=== PATIENT | female | born 1985 | race Caucasian/White ===

== ENCOUNTER → 2018-02-10 | Outpatient (CLI) | payer OTHER | LOC: FIMAGING 07:24 | PROVIDERS: ATTEND Obstetrics & Gynecology | DX: O09.812 Supervision of pregnancy resulting from assisted reproductive technology, second trimester (principal); E03.9 Hypothyroidism, unspecified; Z3A.20 20 weeks gestation of pregnancy ==

== ENCOUNTER 2018-10-23 02:11 | Observation (INO) | payer OTHER ==
[2018-10-23] MEDS ORDERED: NS 1,000 ML IV ONE ×2 (02:49→04:22)
--- NOTE | 2018-10-23 02:49 | EDPHY ---
H & P Stated Complaint: RUQ abd pain, nausea, dry heaving. Saw PCP yesterday awaiting results Time Seen by Provider: 10/23/18 02:49 HPI/ROS: HPI CHIEF COMPLAINT: Abdominal pain, nausea, vomiting. HISTORY OF PRESENT ILLNESS: 33-year-old female presents to the emergency room with abdominal pain. Patient states she has had some abdominal discomfort rather generalized since Saturday. It is now . She presents to the emergency room with worsening abdominal pain is now located in the right lower quadrant. She has associated nausea with 2 episodes of vomiting. Patient denies any chest pain or shortness of breath. Main complaint lower right abdominal pain. Right lower quadrant. 05/02. Associated nausea. Denies urinary symptoms, denies being , denies back pain. Past Medical History: Denies significant medical history except for gestational diabetes Past Surgical History: No recent surgery Social History: Denies drugs alcohol tobacco. Family History: Noncontributory ROS REVIEW OF SYSTEMS: 10 Systems were reviewed and negative with the exception of the elements mentioned in the history of present illness. Exam Constitutional triage nursing summary reviewed, vital signs reviewed, awake/ alert. Eyes normal conjunctivae and sclera, EOMI, PERRLA. HENT normal inspection, atraumatic, moist mucus membranes, no epistaxis, neck supple/ no meningismus, no raccoon eyes. Respiratory clear to auscultation bilaterally, normal breath sounds, no respiratory distress, no wheezing. Cardiovascular rate normal, regular rhythm, no murmur, no edema, distal pulses normal. Gastrointestinal tender palpation right lower quadrant, no peritoneal signs no rebound, no guarding, normal bowel sounds, no distension, no pulsatile mass. Genitourinary no CVA tenderness. Musculoskeletal no midline vertebral tenderness, full range of motion, no calf swelling, no tenderness of extremities, no meningismus, good pulses, neurovascularly intact. Skin pink, warm, & dry, no rash, skin atraumatic. Neurologic awake, alert and oriented x 3, AAOx3, moves all 4 extremities equally, motor intact, sensory intact, CN II-XII intact, normal cerebellar, normal vision, normal speech. Psychiatric normal mood/affect. Heme/Lymph/Immune no lymphadenopathy. Differential Diagnosis: Differential diagnosis includes but is not limited to and in no particular order: Bowel obstruction, appendicitis, gallbladder disease, diverticulitis, colitis, enteritis, perforated viscus, gastritis, GERD , esophagitis, urinary tract infection, pyelonephritis, kidney stones Medical Decision Making: Plan for this patient IV establishment IV fluid bolus , IV Dilaudid 0.5 mg for pain control IV Zofran 4 mg for nausea, CT scan abdomen pelvis with IV contrast rule out acute appendicitis given her pain is right lower quadrant. Re-evaluation: CT scan abdomen pelvis with IV contrast faxed me by direct Radiology at 4:09 a.m.: This shows significant wall thickening of the cecum and proximal ascending colon consistent with colitis there is associated mural base gas density suspected tumor represent gastric between the hostile folds although pneumatosis intestinalis is possible recommend correlation lactic acid. Additionally there is mild dilated loops of ileum with desiccated enteric contents fever to be flexed ileus or obstruction at the level to IC valve due to the colitis 0418: Updated patient about CT scan results. Addition will add a lactic acid. Given the colitis on her CT scan patient need to be admitted. I have ordered her IV Flagyl and IV Cipro. Patient has not had any diarrhea. I will consult General surgery due to the medial base gas. Patient need to be admitted to the hospital for abdominal pain and infection. I have consult Dr. Disla who agrees to admit the patient for colitis. We discussed the CT scan findings. He would like her admitted, IV Cipro IV Flagyl. At this time the patient's lactic acid is pending Patient updated agrees for admission. Source: Patient - Personal History LMP (Females 10-55): Unknown Current Tetanus/Diphtheria Vaccine: Yes Current Tetanus Diphtheria and Acellular Pertussis (TDAP): Yes - Medical/Surgical History Hx Asthma: No Hx Chronic Respiratory Disease: No Hx Diabetes: No Hx Cardiac Disease: No Hx Renal Disease: No Hx Cirrhosis: No Hx Alcoholism: No Hx HIV/AIDS: No Hx Splenectomy or Spleen Trauma: No Other PMH: PVC's, thyroid, gestational diabeties, retained placenta sx - Social History Smoking Status: Never smoked Constitutional: Initial Vital Signs Temperature (C) 36.4 C 10/23/18 02:13 Heart Rate 88 10/23/18 02:13 Respiratory Rate 20 10/23/18 02:13 Blood Pressure 120/99 H 10/23/18 02:13 O2 Sat (%) 96 10/23/18 02:13 O2 Delivery Mode Room Air Allergies/Adverse Reactions: No Known Allergies Allergy (Verified 10/23/18 09:03) Home Medications: Medication Instructions Recorded Ascorbic Acid [Vitamin C 500 mg 500 mg PO DAILY 10/23/18 (*)] Bismuth Subsalicylate 15 ml PO Q3 PRN 10/23/18 [Pepto-Bismol oral liquid (*)] Calcium Carbonate [Tums 500MG (*)] 500 mg PO DAILY PRN 10/23/18 Cetirizine [ZyrTEC 10 mg (*)] 10 mg PO HS 10/23/18 Ferrous Sulfate [Ferrous Sulf 325 325 mg PO DAILY 10/23/18 MG (*)] Fluconazole [Diflucan] 200 mg PO DAILY 10/23/18 Herbals/Supplements -Info Only 1 ea PO DAILY 10/23/18 Levothyroxine [Synthroid 25 mcg 25 mcg PO DAILY06 10/23/18 (*)] [place]-3 Fatty Acids [Fish Oil 1000 1,000 mg PO DAILY 10/23/18 mg (*)] Medical Decision Making - Data Points Laboratory Results: Laboratory Results 10/23/18 02:50 10/23/18 02:50 Medications Given: Discontinued Medications Bismuth Subsalicylate (Pepto-Bismol) 262 mg PO Q3 PRN PRN Reason: Indigestion Stop: 04/21/19 12:12 Last Admin: 10/23/18 15:15 Dose: 262 mg Hydromorphone HCl (Dilaudid) 0.5 mg IVP EDNOW ONE Stop: 10/23/18 02:58 Last Admin: 10/23/18 03:12 Dose: 0.5 mg Hydromorphone HCl (Dilaudid) 0.5 mg IVP EDNOW ONE Stop: 10/23/18 05:28 Last Admin: 10/23/18 06:07 Dose: 0.5 mg Sodium Chloride (Ns) 1,000 mls @ 0 mls/hr IV EDNOW ONE; Wide Open PRN Reason: Protocol Stop: 10/23/18 02:50 Last Admin: 10/23/18 02:51 Dose: 1,000 mls Ciprofloxacin/Dextrose (Cipro 200 Mg (Premix)) 100 mls @ 100 mls/hr IV EDNOW ONE PRN Reason: Protocol Stop: 10/23/18 05:17 Last Admin: 10/23/18 06:06 Dose: 100 mls Metronidazole/Sodium Chloride (Flagyl 500 Mg (Premix)) 100 mls @ 100 mls/hr IV EDNOW ONE PRN Reason: Protocol Stop: 10/23/18 05:17 Last Admin: 10/23/18 04:39 Dose: 100 mls Sodium Chloride (Ns) 1,000 mls @ 0 mls/hr IV ONCE ONE PRN Reason: Wide Open Stop: 10/23/18 04:23 Last Admin: 10/23/18 04:39 Dose: 1,000 mls Potassium Chloride/Dextrose/Sod Cl (D5w 1/2 Ns W/ 20 Kcl/L) 1,000 mls @ 125 mls /hr IV CONT ALICIA Stop: 04/21/19 12:14 Last Admin: 10/23/18 13:49 Dose: 1,000 mls Ondansetron HCl (Zofran) 4 mg IVP EDNOW ONE Stop: 10/23/18 02:58 Last Admin: 10/23/18 03:12 Dose: 4 mg Polyethylene Glycol (Miralax) 17 gm PO ONCE ONE Stop: 10/23/18 18:31 Last Admin: 10/23/18 18:49 Dose: 17 gm Departure - Departure Disposition: [facility] Inpatient Acute Clinical Impression: Colitis Abdominal pain Qualifiers: Abdominal location: unspecified location Qualified Code(s): R10.9 - Unspecified abdominal pain Condition: Good
[2018-10-23] MEDS ORDERED: HYDROmorphONE/DILAUDID 2 MG/ML INJ IVP ONE ×2 (02:57→05:27)
[2018-10-23] MEDS ORDERED: ONDANSETRON 4 MG/2 ML VIAL IVP ONE (02:57)
[2018-10-23 02:59] LABS: PLATELET COUNT 233 10^3/uL (150-400)
[2018-10-23] MEDS ORDERED: IOHEXOL 300 mgI/ML (OMNIPAQUE) 150 ML BTL IV ONE (03:24)
[2018-10-23] MEDS ORDERED: CIPROFLOXACIN 200 MG/DEXTROSE 100 ML IV ONE (04:18)
[2018-10-23] MEDS ORDERED: HYDROmorphONE/DILAUDID 1 MG/ML INJ IVP PRN (12:11)
[2018-10-23] MEDS ORDERED: ONDANSETRON 4 MG/2 ML VIAL IVP PRN (12:11)
[2018-10-23] MEDS ORDERED: BISMUTH SUBSALICYLATE 524 MG/30 ML UDL PO PRN (12:13)
[2018-10-23] MEDS ORDERED: D5W 1/2 NS W/ 20 KCl/L 1,000 ML IV SCH (12:15)
--- NOTE | 2018-10-23 12:21 | SOAPPROG ---
SOAP Progress Note Assessment/Plan: Assessment: 33 FEMALE, NURSING RECENT NEW MOM WITH RLQ PAIN FOR 2 DAYS WITH FEVER/ LARGE BM YESTERDAY CT SHOWS CONSTIPATION WITH ? OF COLITIS OR ENTERITIS, NORMAL APPENDIX NKA NO MAJOR MEDS NO TOB ROS - 10 PT REVIEW HEENT NONICTERIC CHEST CLEAR COR RR ABD SLIGHTLY TENDER RLQ, MILD DISTENTION, + BS, NO HERNIAS OR MASSES IMP: RLQ UNCLEAR ETIOLOGY Plan:ADMIT FOR IV ABX, OBS, IVS 10/23/18 12:15 Objective: Vital Signs Temp Pulse Resp BP Pulse Ox 36.9 C 59 L 16 119/78 97 10/23/18 07:55 10/23/18 10:33 10/23/18 10:33 10/23/18 10:33 10/23/18 10:33 ICD10 Worksheet Patient Problems: Problems Problem Status Onset Abdominal pain Acute Colitis Acute
[2018-10-23 15:58] VITALS: BP 92/56
[2018-10-23] MEDS ORDERED: POLYETHYLENE GLYCOL 3350 17 GM PKT PO ONE (18:30)
[2018-10-23] MEDS ORDERED: BISACODYL 10 MG SUPP PR ONE (18:48)
[2018-10-23] MEDS ORDERED: CETIRIZINE 10 MG TAB PO SCH (21:00)
[2018-10-24] MEDS ORDERED: LEVOTHYROXINE 25 MCG TAB PO SCH (06:00)
[2018-10-24] MEDS ORDERED: FLUCONAZOLE 100 MG TAB PO SCH (09:00)
[2018-10-24] MEDS ORDERED: ASCORBIC ACID 500 MG TAB PO SCH (09:00)
== END 2018-10-23 20:00 | disposition home or self-care (01) ==
LOC: F3N 13:07
PROVIDERS: ADMIT Surgery; ATTEND Surgery
DX: K52.9 Noninfective gastroenteritis and colitis, unspecified (principal)
CPT/HCPCS: 74177; 96361; 96365; 96367; 96375; 96376; 99285; G0378; J1170; J2405; Q9967

== ENCOUNTER 2018-10-24 22:46 | Inpatient (IN) | payer OTHER ==
[2018-10-24] MEDS ORDERED: ONDANSETRON 4 MG/2 ML VIAL IVP ONE (23:07)
[2018-10-24] MEDS ORDERED: HYDROmorphONE/DILAUDID 2 MG/ML INJ IVP ONE ×2 (23:07→23:21)
[2018-10-24] MEDS ORDERED: NS 1,000 ML IV ONE (23:07)
[2018-10-24] MEDS ORDERED: HYDROmorphONE/DILAUDID 2 MG/ML INJ ONE (23:10)
--- NOTE | 2018-10-24 23:19 | EDPHY ---
General Time Seen by Provider: 10/24/18 22:52 Narrative: CLINICAL IMPRESSION: Colitis ASSESSMENT/PLAN: 33-year-old female, recently discharged from this hospital this morning after admission for colitis and presumed constipation, returns to the ED tonight with increased abdominal pain, vomiting, and inability to have bowel movement despite [id number] laxatives. Patient appears uncomfortable and has diffuse tenderness on exam with guarding. No reported fevers or chills at home. Repeat lab evaluation shows development of leukocytosis. No renal insufficiency, electrolyte imbalance, metabolic disturbance, normal lactate. Repeat CT scan read by Radiology with increased wall thickening in the cecum, proximal ascending colon and terminal ileum with interval development of a small volume of right abdominal and pelvic ascites. These results were discussed with Dr. West who came to the ED to evaluate the patient. She will be admitted, IV Rocephin and metronidazole started in the ED. Patient kept NPO at this time. Case discussed with Dr. Bear who also saw and examined the patient. Stable for admission. DIFFERENTIAL DX: Abdominal pain includes but not limited to urinary tract infection, pyelonephritis, infection, ectopic , salpingitis, TOA, ovarian torsion, ovarian cyst, endometriosis, uterine fibroids, acute appendicitis, acute diverticulitis, small-bowel obstruction, constipation ED PROCEDURES: See lab and/or imaging results below ED COURSE: Eleven 15:. Case discussed with Dr. Bear who also saw this patient yesterday. He examined the patient as well. Plan for IV, labs, analgesics and repeat CT scan 12:55 a.m.. Results from direct radiology interpretation of CT received. This was read by Dr. Lockwood. Final impression: Increased wall thickening in the cecum, proximal ascending colon, and terminal ileum. Interval development of a small volume of right abdominal and pelvic ascites. In crease small-bowel obstruction at the level of the terminal ileum. Consider infectious, inflammatory and ischemic colitis. Discussed with Dr. Deshawn West who will come to the ED to evaluate the patient. Recommend readmission. Start ceftriaxone and Flagyl. Plan discussed with the patient who is in agreement. She is comfortable at this time and declining further IV analgesics. Will keep NPO per surgeon recommendation. CHIEF COMPLAINT: Worsening abdominal pain HPI: 33-year-old otherwise healthy female presents to the emergency department after she was discharged from the hospital this morning following admission for colitis and constipation. Patient was admitted by Dr. Disla. She received a single dose of IV antibiotics in the hospital, was instructed to try magnesium citrate and enemas at home. She tried taking a full dose of Mag citrate this evening around 5:00 p.m. And shortly thereafter began vomiting. She has vomited 5 times since then. She tried 2 separate fleets enemas at home, had some luck with the 1st 1 but only "watery brown mucus with the 2nd enema". No reports of fever or chills. No abnormal complaints. She reportedly saw Dr. Disla in office today and was told she was constipated. She was also seen by a PA at a GI office and "got an xray". They called Dr. Mccabe's office tonight before coming to the ER and were advised by Dr. West to come to ED. 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 She is currently breast feeding, brought her pump with her but admits her milk supply is dwindling. She reports no other significant abdominal surgery, UTI complaints. PAST MEDICAL HISTORY: No significant past medical history See nurse/triage notes for additional history if applicable Pertinent Past Surgical History: Uterine embolization July 2018 Family History: Noncontributory Social History: , here with her , otherwise healthy REVIEW OF SYSTEMS: All other systems negative Constitutional: No fever, no chills, positive for appetite change. Cardiovascular: No chest pain, no palpitations. Respiratory: No cough, no shortness of breath. Gastrointestinal: Positive for generalized abdominal pain, positive for vomiting , diarrhea. Genitourinary: No hematuria, dysuria, flank pain, pelvic pain Musculoskeletal: No back pain, joint swelling, joint pain, myalgias. PHYSICAL EXAM: General Appearance: Alert, oriented, appears uncomfortable, well hydrated, non- toxic appearing, VSS, no hypoxia. Respiratory: There are no retractions, lungs are clear to auscultation. Cardiac: Regular rate and rhythm, no murmurs or gallops. Gastrointestinal: Abdomen is soft, generally significantly tender throughout, bowel sounds normal, no masses/hernia, no rigidity, mild guarding but no focal peritoneal findings. Neurological: [ Alert and oriented x 3 Skin: Warm, dry, no rashes, no nodules on palpation. MEDICAL DECISION MAKING: Secondary supervising physician at time of evaluation was Dr. Bear. Diagnosis: Worsening colitis, differential includes infectious, inflammatory or ischemic. New, requires workup Summary: See Assessment and Plan for summary of ED visit Clinical lab tests: ordered / reviewed. Independent visualization of images, tracing, or specimens: Yes. Decision to obtain medical records or history from someone other than the patient: No Review / Summarize previous medical records: Reviewed recent ED notes, admission records and imaging studies Discussed patient with another provider: Dr. Bear Patient Progress: Stable . - History Smoking Status: Never smoked - Objective Vital Signs: Initial Vital Signs Temperature (C) 36.8 C 10/24/18 22:48 Heart Rate 68 10/24/18 22:48 Respiratory Rate 17 10/24/18 22:48 Blood Pressure 117/66 10/24/18 22:48 O2 Sat (%) 96 10/24/18 22:48 O2 Delivery Mode Nasal Cannula O2 (L/minute) 2 Allergies/Adverse Reactions: No Known Allergies Allergy (Verified 10/24/18 22:47) Home Medications: Medication Instructions Recorded Ascorbic Acid [Vitamin C 500 mg 500 mg PO DAILY 10/23/18 (*)] Bismuth Subsalicylate 15 ml PO Q3 PRN 10/23/18 [Pepto-Bismol oral liquid (*)] Calcium Carbonate [Tums 500MG (*)] 500 mg PO DAILY PRN 10/23/18 Cetirizine [ZyrTEC 10 mg (*)] 10 mg PO HS 10/23/18 Ferrous Sulfate [Ferrous Sulf 325 325 mg PO DAILY 10/23/18 MG (*)] Fluconazole [Diflucan] 200 mg PO DAILY 10/23/18 Herbals/Supplements -Info Only 1 ea PO DAILY 10/23/18 Levothyroxine [Synthroid 25 mcg 25 mcg PO DAILY06 10/23/18 (*)] [place]-3 Fatty Acids [Fish Oil 1000 1,000 mg PO DAILY 10/23/18 mg (*)] Laboratory Results: Laboratory Results 10/24/18 23:15 10/24/18 23:15 10/24/18 10/24/18 10/24/18 23:15 23:15 23:15 WBC 13.02 10^3/uL H 10^3/uL (3.80-9.50) RBC 4.72 10^6/uL 10^6/uL (4.18-5.33) Hgb 15.3 g/dL g/dL (12.6-16.3) Hct 45.0 % % (38.0-47.0) MCV 95.3 fL fL (81.5-99.8) MCH 32.4 pg pg (27.9-34.1) MCHC 34.0 g/dL g/dL (32.4-36.7) RDW 12.2 % % (11.5-15.2) Plt Count 248 10^3/uL 10^3/uL (150-400) MPV 10.4 fL fL (8.7-11.7) Neut % (Auto) 86.7 % H % (39.3-74.2) Lymph % (Auto) 6.0 % L % (15.0-45.0) [place] % (Auto) 6.1 % % (4.5-13.0) Eos % (Auto) 0.1 % L % (0.6-7.6) Baso % (Auto) 0.6 % % (0.3-1.7) Nucleat RBC Rel Count 0.0 % % (0.0-0.2) Absolute Neuts (auto) 11.28 10^3/uL H 10^3/uL (1.70-6.50) Absolute Lymphs (auto) 0.78 10^3/uL L 10^3/uL (1.00-3.00) Absolute Monos (auto) 0.80 10^3/uL 10^3/uL (0.30-0.80) Absolute Eos (auto) 0.01 10^3/uL L 10^3/uL (0.03-0.40) Absolute Basos (auto) 0.08 10^3/uL 10^3/uL (0.02-0.10) Absolute Nucleated RBC 0.00 10^3/uL 10^3/uL (0-0.01) Immature Gran % 0.5 % % (0.0-1.1) Immature Gran # 0.07 10^3/uL 10^3/uL (0.00-0.10) VBG Lactic Acid 1.1 mmol/L mmol/L (0.7-2.1) Sodium 134 mEq/L L mEq/L (135-145) Potassium 4.1 mEq/L mEq/L (3.5-5.2) Chloride 97 mEq/L mEq/L (97-110) Carbon Dioxide 25 mEq/l mEq/l (22-31) Anion Gap 12 mEq/L mEq/L (6-14) BUN 10 mg/dL mg/dL (7-23) Creatinine 0.7 mg/dL mg/dL (0.6-1.0) Estimated GFR > 60 Glucose 87 mg/dL mg/dL (70-100) Calcium 9.6 mg/dL mg/dL (8.5-10.4) Medications Given: Discontinued Medications Hydromorphone HCl (Dilaudid) 0.5 mg IVP EDNOW ONE Stop: 10/24/18 23:08 Last Admin: 10/24/18 23:22 Dose: Not Given Hydromorphone HCl (Dilaudid) 1 mg IVP EDNOW ONE Stop: 10/24/18 23:22 Last Admin: 10/24/18 23:22 Dose: 1 mg Sodium Chloride (Ns) 1,000 mls @ 0 mls/hr IV EDNOW ONE; Wide Open PRN Reason: Protocol Stop: 10/24/18 23:08 Last Admin: 10/24/18 23:23 Dose: 1,000 mls Ondansetron HCl (Zofran) 4 mg IVP EDNOW ONE Stop: 10/24/18 23:08 Last Admin: 10/24/18 23:23 Dose: 4 mg Departure - Departure Disposition: [facility] Inpatient Acute Clinical Impression: Colitis Condition: Fair
[2018-10-24 23:29] LABS: PLATELET COUNT 248 10^3/uL (150-400)
[2018-10-24] MEDS ORDERED: IOHEXOL 300 mgI/ML (OMNIPAQUE) 150 ML BTL IV ONE (23:45)
[2018-10-25] MEDS ORDERED: HYDROmorphONE/DILAUDID 2 MG/ML INJ IVP ONE (01:24)
[2018-10-25] MEDS ORDERED: PROMETHAZINE HCL 25 MG/ML INJ IVP PRN (01:26)
[2018-10-25] MEDS ORDERED: ONDANSETRON DISINTEGRATING 4 MG TAB PO PRN (01:26)
[2018-10-25] MEDS ORDERED: ONDANSETRON 4 MG/2 ML VIAL IVP PRN (01:26)
[2018-10-25] MEDS ORDERED: ACETAMINOPHEN 325 MG TAB PO PRN (01:26)
[2018-10-25] MEDS ORDERED: ONDANSETRON 4 MG/2 ML VIAL IVP ONE (01:29)
[2018-10-25] MEDS ORDERED: ONDANSETRON 4 MG/2 ML VIAL ONE (01:29)
[2018-10-25] MEDS: HYDROmorphONE/DILAUDID 1 MG/ML INJ IVP PRN ×2 (03:47→06:10)
[2018-10-25] MEDS: D5W 1/2 NS W/ 20 KCl/L 1,000 ML IV SCH ×2 (03:57→19:15)
[2018-10-25 05:58] LABS: PLATELET COUNT 242 10^3/uL (150-400)
--- NOTE | 2018-10-25 06:51 | PDGENHP ---
History and Physical - Chief Complaint abdominal pain with nausea and vomiting - History of Present Illness Otherwise healthy 33yo female who presents back to the ED with abdominal pain. Briefly, was admitted night with acute abdominal pain and a CT scan which showed colitis. She received one dose of antibiotics and was subsequently monitored on the floor and discharged home . Since Dc, she has been seen in both our clinic and GI clinic. Throughout the day today, she has had progressive, colicky abdominal pain which has worsened. Her called earlier to report that she was in excruciating pain and that they were coming back in. In the ED, she has been medicated but is still nauseated she complains of colicky abdominal pain which comes in waves and at its worse is 8/10 in intensity. History Information - Allergies/Home Medication List Allergies/Adverse Reactions: No Known Allergies Allergy (Verified 10/24/18 22:47) Home Medications: Ascorbic Acid [Vitamin C 500 mg (*)] 500 mg PO DAILY 10/23/18 [Last Taken Unknown] Bismuth Subsalicylate [Pepto-Bismol oral liquid (*)] 15 ml PO Q3 PRN 10/23/18 [ Last Taken Unknown] Calcium Carbonate [Tums 500MG (*)] 500 mg PO DAILY PRN 10/23/18 [Last Taken Unknown] Cetirizine [ZyrTEC 10 mg (*)] 10 mg PO HS 10/23/18 [Last Taken 10/22/18] Ferrous Sulfate [Ferrous Sulf 325 MG (*)] 325 mg PO DAILY 10/23/18 [Last Taken Unknown] Fluconazole [Diflucan] 200 mg PO DAILY 10/23/18 [Last Taken Unknown] Herbals/Supplements -Info Only 1 ea PO DAILY 10/23/18 [Last Taken Unknown] Levothyroxine [Synthroid 25 mcg (*)] 25 mcg PO DAILY06 10/23/18 [Last Taken ] [place]-3 Fatty Acids [Fish Oil 1000 mg (*)] 1,000 mg PO DAILY 10/23/18 [Last Taken Unknown] I have personally reviewed and updated: family history, medical history, social history, surgical history Past Medical History: hypothyroid, gestational DM - Surgical History Reports: no pertinent surgical hx Additional surgical history: chemo embo of uterine bleeder post-partu,m - Family History Additional family history: no Crohns or UC - Social History Smoking Status: Never smoked Review of Systems Review of Systems: ROS: 10pt was reviewed & negative except for what was stated in HPI & below Physical Exam Physical Exam: Temp Pulse Resp BP Pulse Ox 36.7 C 60 16 108/65 98 10/25/18 02:33 10/25/18 02:33 10/25/18 02:33 10/25/18 02:33 10/25/18 02:33 O2 (L/minute) 2 Constitutional: appears nourished, not in pain, uncomfortable Eyes: PERRL, anicteric sclera, EOMI Ears, Nose, Mouth, Throat: moist mucous membranes, hearing normal, ears appear normal, no oral mucosal ulcers Cardiovascular: regular rate and rhythym, no murmur, rub, or gallop, No edema Respiratory: no respiratory distress, no rales or rhonchi, clear to auscultation Gastrointestinal: no palpable masses, other (hypoactive bowel sounds, grossly tender to palpation, no rebound or guarding ) Genitourinary: no bladder fullness, no bladder tenderness Skin: warm, normal color, no rashes or abrasions, no fluctuance, no induration, No mottled Musculoskeletal: full muscle strength, no muscle tenderness, normal joint ROM, no joint effusions Psychiatric: interacting appropriately, not anxious, not encephalopathic, thought process linear Lymph, Heme, Immunologic: no cervical LAD, no supraclavicular LAD Lab Data & Imaging Review 10/25/18 05:38 10/24/18 23:15 WBC 13.23 10^3/uL (3.80-9.50) H 10/25/18 05:38 RBC 4.52 10^6/uL (4.18-5.33) 10/25/18 05:38 Hgb 14.6 g/dL (12.6-16.3) 10/25/18 05:38 Hct 44.3 % (38.0-47.0) 10/25/18 05:38 MCV 98.0 fL (81.5-99.8) 10/25/18 05:38 MCH 32.3 pg (27.9-34.1) 10/25/18 05:38 MCHC 33.0 g/dL (32.4-36.7) 10/25/18 05:38 RDW 12.2 % (11.5-15.2) 10/25/18 05:38 Plt Count 242 10^3/uL (150-400) 10/25/18 05:38 MPV 10.4 fL (8.7-11.7) 10/25/18 05:38 Neut % (Auto) 86.2 % (39.3-74.2) H 10/25/18 05:38 Lymph % (Auto) 6.5 % (15.0-45.0) L 10/25/18 05:38 [place] % (Auto) 6.3 % (4.5-13.0) 10/25/18 05:38 Eos % (Auto) 0.1 % (0.6-7.6) L 10/25/18 05:38 Baso % (Auto) 0.4 % (0.3-1.7) 10/25/18 05:38 Nucleat RBC Rel Count 0.0 % (0.0-0.2) 10/25/18 05:38 Absolute Neuts (auto) 11.41 10^3/uL (1.70-6.50) H 10/25/18 05:38 Absolute Lymphs (auto) 0.86 10^3/uL (1.00-3.00) L 10/25/18 05:38 Absolute Monos (auto) 0.84 10^3/uL (0.30-0.80) H 10/25/18 05:38 Absolute Eos (auto) 0.01 10^3/uL (0.03-0.40) L 10/25/18 05:38 Absolute Basos (auto) 0.05 10^3/uL (0.02-0.10) 10/25/18 05:38 Absolute Nucleated RBC 0.00 10^3/uL (0-0.01) 10/25/18 05:38 Immature Gran % 0.5 % (0.0-1.1) 10/25/18 05:38 Immature Gran # 0.06 10^3/uL (0.00-0.10) 10/25/18 05:38 VBG Lactic Acid 1.1 mmol/L (0.7-2.1) 10/24/18 23:15 Sodium 134 mEq/L (135-145) L 10/24/18 23:15 Potassium 4.1 mEq/L (3.5-5.2) 10/24/18 23:15 Chloride 97 mEq/L (97-110) 10/24/18 23:15 Carbon Dioxide 25 mEq/l (22-31) 10/24/18 23:15 Anion Gap 12 mEq/L (6-14) 10/24/18 23:15 BUN 10 mg/dL (7-23) 10/24/18 23:15 Creatinine 0.7 mg/dL (0.6-1.0) 10/24/18 23:15 Estimated GFR > 60 10/24/18 23:15 Glucose 87 mg/dL (70-100) 10/24/18 23:15 Calcium 9.6 mg/dL (8.5-10.4) 10/24/18 23:15 Visualized and Interpreted imaging results: Yes Interpretation: CT: worsening colitis c some ascites, c secondary SBO. lot of stool in colon Assessment & Plan Assessment: Colitis (Acute) Plan: will plan to admit for pain control and IV antibiotics for colitis/enteritis of unknown etiology. Will also need to decompress from SBO standpoint. Given unknown etiology my plan for her would be to resolve her SBO, receive bowel prep and get c-scope this admission. Will cont monitor.
--- NOTE | 2018-10-25 08:29 | PDMN ---
Medical Necessity Medical necessity: MCG: M210 intestinal obstruction: worsening colitis with some ascites secondary to SBO- anticipate > 2 MN ongoing med nec care- further monitoring and tx of SBO/colitis.
--- NOTE | 2018-10-25 12:12 | SOAPPROG ---
SOAP Progress Note Assessment/Plan: Assessment: MUCH BETTER THIS AM WITH NO EMESIS ABD SOFT, +BS, MINIMALLY DISTENDED CHEST CLEAR/ COR RR 2-WAY SHOWS NO REAL SBO BUT PERSISTENT CONSTIPATION LOW SUSPICION FOR IBD Plan:CATHARSIS, GI CONSULT FOR POSSIBLE COLONOSCOPY 10/25/18 12:09 Objective: Vital Signs Temp Pulse Resp BP Pulse Ox 36.8 C 67 16 95/62 L 91 L 10/25/18 11:07 10/25/18 11:07 10/25/18 11:07 10/25/18 11:07 10/25/18 11:07 Laboratory Results 10/25/18 05:38 10/25/18 05:38 10/24/18 10/25/18 10/26/18 05:59 05:59 05:59 Intake Total 1050 Output Total 400 Balance 650 ICD10 Worksheet Patient Problems: Problems Problem Status Onset Colitis Acute Abdominal pain Acute
[2018-10-25] MEDS: LACTULOSE 20 GM/30 ML UDCUP PO SCH ×2 (15:48→22:25)
[2018-10-26] MEDS: D5W 1/2 NS W/ 20 KCl/L 1,000 ML IV SCH ×2 (03:36→17:55)
[2018-10-26 05:46] LABS: PLATELET COUNT 180 10^3/uL (150-400)
[2018-10-26] MEDS: LACTULOSE 20 GM/30 ML UDCUP PO SCH (09:09)
[2018-10-26] MEDS ORDERED: PEG 3350/NA SULF,BICARB,CL/KCL (GAVILYTE-G) 4000 ML BTL PO ONE ×2 (12:32→18:00)
[2018-10-26] MEDS ORDERED: methylPREDNISolone SOD SUCC 125 MG/2 ML VIAL IVP ONE (12:35)
--- NOTE | 2018-10-26 12:36 | SOAPPROG ---
[facility] Progress Note Assessment/Plan: Assessment:Plan: see full dictated consult to follow 33 y/[address] with abn[address] with possible TI inflammation and partial obstruction query IBD? will give some Solumedrol IV to see if lessen functional obstruction and if she can tolerate prep for colonoscopy tomorrow further recs post colonoscopy 10/26/18 12:35 Objective: Vital Signs Temp Pulse Resp BP Pulse Ox 36.3 C 61 16 115/77 97 10/26/18 11:15 10/26/18 11:15 10/26/18 11:15 10/26/18 11:15 10/26/18 11:15 Laboratory Results 10/26/18 05:24 10/26/18 05:24 10/25/18 10/26/18 10/27/18 05:59 05:59 05:59 Intake Total 1050 2800 Output Total 400 450 Balance 650 2350 ICD10 Worksheet Patient Problems: Problems Problem Status Onset Colitis Acute Abdominal pain Acute
--- NOTE | 2018-10-26 15:04 | SOAPPROG ---
SOAP Progress Note Assessment/Plan: Assessment: MUCH BETTER THIS AM WITH NO EMESIS ABD SOFT, +BS, MINIMALLY DISTENDED CHEST CLEAR/ COR RR 2-WAY SHOWS NO REAL SBO BUT PERSISTENT CONSTIPATION LOW SUSPICION FOR IBD Plan:CATHARSIS, GI CONSULT FOR POSSIBLE COLONOSCOPY 10/25/18 12:09 10/26/18 15:02 vs stable/ wbc 6k/ afebrile/ abd soft, minimally tender, mildly distended plan colonoscopy Objective: Vital Signs Temp Pulse Resp BP Pulse Ox 36.3 C 61 16 115/77 97 10/26/18 11:15 10/26/18 11:15 10/26/18 11:15 10/26/18 11:15 10/26/18 11:15 Laboratory Results 10/26/18 05:24 10/26/18 05:24 10/25/18 10/26/18 10/27/18 05:59 05:59 05:59 Intake Total 1050 2800 Output Total 400 450 Balance 650 2350 ICD10 Worksheet Patient Problems: Problems Problem Status Onset Colitis Acute Abdominal pain Acute
--- NOTE | 2018-10-26 15:11 | ASMTCMCOM ---
CM Note CM Note Notes: Pt is a 33 year old female who presents with colitis. Plans for pt to have colonoscopy tomorrow. Pt lives with . Pt will likely be discharged independent, CM available if needs arise. Plan: Independent. Date Signed: 10/26/2018 03:10 PM Electronically Signed By:MORTEZA Shoemaker
--- NOTE | 2018-10-26 16:51 | GCON ---
[f rep st] CONSULTATION REFERRING PHYSICIAN: Agustin Disla MD INDICATION FOR CONSULTATION: Abnormal imaging studies. Abdominal pain. HPI: I have been asked by Dr. Disla to see Ira in consultation for chief complaint of abnormal imaging study and abdominal pain, with possible partial small bowel obstruction. She is a very pleasant 33-year-old female who is status post delivery of her healthy boy approximately 3 months ago. She says that her symptoms have been going on since she has delivered her baby. She has complained of on and off occasional loose stools that usually occur in the a.m. It can happen a couple of times in a row, which do not have any blood or any pain. She has lost some weight, which she thought was related to the Paleo diet. She does not complain of any rashes or joint pains, although she does have some problem with alopecia. There is no family history of autoimmune issues, although she might have early hyperthyroidism and possibly diabetes related to her . She presented to the emergency room on October 23 with worsening abdominal pain that had been going on for approximately 2 days. The pain was in the right lower quadrant and she had some episodes of nausea, vomiting as well. She has not complained of any fevers, chills, or sweats at that point. Imaging study obtained on October 23 revealed severe constipation with stool distending into distal ileum, bowel wall thickening in the cecum and ascending colon which could represent colitis with a possible component of pneumatosis in a segment of bowel wall thickening in the distal ileum, which could represent enteritis. There is no evidence of appendicitis. She had treatment at that time for IV antibiotics and was discharged the following morning. She then presented again that evening for increasing abdominal pain, vomiting, inability to have bowel movements. She says she had taken a bottle of magnesium citrate and had tremendous discomfort and that brought her back to the emergency room. A repeat CAT scan done on October 24 revealed worsening of the development of diffusely dilated fluid-filled entire small bowel with circumferential wall thickening of the terminal ileum and ascending colon, suggesting inflammatory bowel disease. There was also a very small amount of ascites related to the inflammation. I was then contacted to help, evaluate and treat in this regard. Currently, she is still experiencing abdominal pain, mostly in the right lower quadrant. She has passed some flatus, but no significant loose stools. She also denies any chest pain, shortness of breath, palpitations, and said that she was essentially asymptomatic with the GI system until all this started after she delivered her baby a few months ago. I am now here to help and evaluate and treat a possible new diagnosis of Crohn disease. PAST MEDICAL HISTORY: with a 3-month-old healthy baby boy. She has possible mild hyperthyroidism and a question of diabetes that could be related to her . PAST SURGICAL HISTORY: Included uterine embolization from a retained placenta. FAMILY HISTORY: Dad with diverticulosis and hernia. No family history of inflammatory bowel disease to her knowledge. No colon cancer or colon polyps to her knowledge. SOCIAL HISTORY: She does not smoke. She quit drinking when she was . She used to drink approximately 3 glasses a week. She has had no travel outside the [place], except for traveling to [place] recently. There has been no travel to [place], [place], [place], [place]. MEDICATIONS: At home, include levothyroxine 25 mcg and she takes lots of herbal stuff that include cinnamon bark and she had been on iron for her iron deficiency . ALLERGIES: No known drug allergies. REVIEW OF SYSTEMS: A complete review of systems was performed and is negative other than noted in HPI. PHYSICAL EXAM: GENERAL: Well-developed, well-nourished female sitting in her bed in no acute distress. Her is in the room and her baby is sleeping in the bathroom, occasionally crying at points. VITAL SIGNS: Blood pressure is 115/77, pulse is 61, respirations 16. She is 97% on room air. Temperature is 36.3. EYES: Anicteric. ALISSON, EOMI. Mouth: No lesions. Moist membranes. NECK: Supple. Full range of motion. No JVD. BACK: No spine tenderness. No CVA tenderness. LUNGS: Clear. CARDIAC: S1, S2. Regular rate and rhythm. No murmurs, rubs or gallops appreciated. ABDOMEN: Bowel sounds are somewhat decreased. Abdomen is soft, but distended. She does have right lower quadrant tenderness with some guarding. No rebound. No hepatosplenomegaly. EXTREMITIES : No cyanosis, clubbing, or edema. NEUROLOGIC: Cranial nerves intact, nonfocal. SKIN: No stigmata of advanced liver disease. No rashes. LABORATORY DATA: From today, October 26, WBC 6.12, hemoglobin 12.0, hematocrit 36.4, platelet count 180. Sodium 140, potassium 3.8, chloride 108, bicarb 27, BUN 9, creatinine 0.8, glucose 93, calcium 8.2. From October 23, her LFTs are normal. AST 25, ALT 35, alkaline phosphatase 42, albumin 4.6, total protein 7.3. Her lipase on the was 32. Beta HCG was negative. CT scans as noted in the HPI. The CT scan from October 24 revealed diffuse circumferential wall thickening of the terminal ileum and cecum with multiple stool and fluid-filled dilated loops of small bowel and a large amount of stool throughout the ascending colon, significantly worse since yesterday. There is a new small amount of diffuse ascites, especially in the right pericolic gutter and pelvis, decompression of the descending and sigmoid colon, possible circumferential wall thickening versus completely distended. All loops of small bowel distended with air-fluid levels with additional stool in ileum. No pneumoperitoneum. No definite drainable abscess, although incompletely evaluated due to lack of oral contrast. Superimposed constipation with improvement of distal colon since yesterday, but more fecalization of the small bowel. Of note, I did review the CAT scans with the radiologist today. ASSESSMENT: 1. Abnormal CAT scan that is concerning for inflammatory bowel disease/Crohn's. 2. Abdominal pain related to partial obstruction. 3. Hyperthyroidism. 4. Diabetes related to . RECOMMENDATIONS: 1. Start IV Solu-Medrol, give a high dose of 80 mg as 1 time dose, and then I will use 40 mg Q 8. I would like to see if I can decrease inflammation so that she has less of an obstruction and can tolerate the prep. 2. Colonoscopy prep. However, it is significantly painful. We will give it a day or 2 on IV Solu-Medrol to see if the inflammation decreases and the partial obstruction improves. 3. Colonoscopy once prepped. 4. Further recommendations to follow up results of colonoscopy. This does look very suspicious for Crohn disease. In patients with small bowel Crohn disease, I do believe the biologic therapy is the recommended initial therapy. Previously, I had used "bottom up therapy instead of "top-down therapy ," and with small bowel Crohn disease I believe starting with biologics is most appropriate. If this does look like Crohn disease on a colonoscopy, we will treat her with IV then oral steroids. We can start oral mesalamine. I will have her research the other medications and discuss it with me as an outpatient. Thank you for allowing me participate in this patient's healthcare. Do not hesitate to call me with any questions. /[id number]/MODL MTDD
[2018-10-26] MEDS: methylPREDNISolone SOD SUCC 40 MG/ML VIAL IVP SCH ×2 (19:52→21:17)
[2018-10-27] MEDS: methylPREDNISolone SOD SUCC 40 MG/ML VIAL IVP SCH ×3 (06:11→22:20)
[2018-10-27] MEDS: D5W 1/2 NS W/ 20 KCl/L 1,000 ML IV SCH (08:35)
--- NOTE | 2018-10-27 10:27 | SOAPPROG ---
SOAP Progress Note Assessment/Plan: Assessment/plan: 33 y/o F admitted with abdominal pain, nausea, and constipation. CT revealed findings c/w IBD, likely Crohn's. Plan for colonoscopy this afternoon or tomorrow morning. Pt has gotten through the majority of the prep and having BMs, although not clear stools yet. S: Feels significantly better after having several BMs. Denies abdominal pain, n/v. Has appetite. O: Alert Afebrile RRR No increased WOB Abdomen: soft, nontender 10/27/18 10:23 Objective: Vital Signs Temp Pulse Resp BP Pulse Ox 36.9 C 58 L 16 113/82 H 95 10/27/18 08:12 10/27/18 08:12 10/27/18 08:12 10/27/18 08:12 10/27/18 08:12 Laboratory Results 10/26/18 05:24 10/26/18 05:24 10/26/18 10/27/18 10/28/18 05:59 05:59 05:59 Intake Total 2800 3019 Output Total 450 1775 1400 Balance 2350 1244 -1400 ICD10 Worksheet Patient Problems: Problems Problem Status Onset Colitis Acute Abdominal pain Acute
[2018-10-27] MEDS ORDERED: PEG 3350/NA SULF,BICARB,CL/KCL (GAVILYTE-G) 4000 ML BTL PO ONE (10:46)
--- NOTE | 2018-10-27 17:25 | SOAPPROG ---
CHARLES Progress Note Assessment/Plan: Assessment:Plan: see full dictated consult to follow 33 y/o with abn[address] CT with possible TI inflammation and partial obstruction query IBD? 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 tomorrow 4) diet - clear liquids then NPO when finished prep - will be drinking more at 6am tomorrow Subjective: cc- SBO from prob IBD in TI and maybe right colon much improved with IV steroids, passing lots of stool and flatus less pain but still present with even mild palpation Objective: Vital Signs Temp Pulse Resp BP Pulse Ox 36.4 C 57 L 18 107/76 97 10/27/18 15:36 10/27/18 15:36 10/27/18 15:36 10/27/18 15:36 10/27/18 15:36 Laboratory Results 10/26/18 05:24 10/26/18 05:24 10/26/18 10/27/18 10/28/18 05:59 05:59 05:59 Intake Total 2800 3019 Output Total 450 1775 2300 Balance 2350 1244 -2300 A+Ox3 CTA S1S2, RRR +BS, soft RLQ tenderness with guarding no rebound ICD10 Worksheet Patient Problems: Problems Problem Status Onset Colitis Acute Abdominal pain Acute
[2018-10-28] MEDS: D5W 1/2 NS W/ 20 KCl/L 1,000 ML IV SCH (01:30)
[2018-10-28] MEDS: methylPREDNISolone SOD SUCC 40 MG/ML VIAL IVP SCH ×2 (06:03→13:32)
[2018-10-28] MEDS ORDERED: MAGNESIUM CITRATE 300 ML BOTTLE PO ONE (08:15)
[2018-10-28] MEDS ORDERED: NS 500 ML IV ONE (13:27)
[2018-10-28] MEDS ORDERED: MIDAZOLAM 2 MG/2 ML VIAL ONE (13:53)
[2018-10-28] MEDS ORDERED: fentaNYL 100 MCG/2 ML INJ ONE (13:53)
--- NOTE | 2018-10-28 14:29 | PDPROPOC ---
Sedation Plan of Care Sedation Plan of Care: vital signs stable, mental status noted, patient educated of risks, benefits, alternatives, patient can tolerate sedation ASA Classification: ASA 2 Planned drugs: fentanyl, midazolam Mallampati Score: Class 2 Mallampati Reference Image: Patient passed 3-3-2 rule?: Yes
--- NOTE | 2018-10-28 15:14 | GIREPORT ---
[facility] Surgical Services - Endoscopy Department Patient Name: Ira Musa Procedure Date: 10/28/2018 2:23 PM Patient Type: Inpatient Attending MD/ ER Physician: Rahul Niño MD Procedure: Colonoscopy Indications: Abdominal pain in the right lower quadrant, Suspected Crohn's disease o f the small bowel, Abnormal CT of the GI tract Providers: Rahul Niño MD Referring MD: Elisa Camargo MD Medicines: Fentanyl 100 micrograms IV, Midazolam 6 mg IV Complications: No immediate complications. Estimated blood loss: Minimal. Description of Procedure: After obtaining informed consent, the scope was passed under direct vis ion. Throughout the procedure, the patient's blood pressure, pulse, and oxyg en saturations were monitored continuously. The Colonoscope with irrigatio n channel was introduced through the anus and advanced to the terminal il eum, with identification of the appendiceal orifice and IC valve. The colono scopy was performed without difficulty. The patient tolerated the procedure w ell. The quality of the bowel preparation was excellent. Findings: The digital rectal exam was normal. A scattered area of mucosa in the terminal ileum was mildly congested, erythematous and inflamed. Biopsies were taken with a cold forceps for histology. Estimated blood loss was minimal. A scattered area of mildly altered vascular and erythematous mucosa was found in the ascending colon and in the cecum. Biopsies were taken with a cold forceps for histology. Estimated blood loss was minimal. The exam was otherwise without abnormality. Estimated Blood Loss: Estimated blood loss was minimal. Post Op Diagnosis: - Congested, erythematous and inflamed mucosa in the terminal ileum. Biopsied. - Altered vascular and erythematous mucosa in the ascending colon and i n the cecum. Biopsied. - I do think this is c/w Crohn's albeit treated well with IV steroids. No big ulcerations noted. - The examination was otherwise normal. Recommendation: - Await pathology results. - My office will call with the pathology result with 5-7 days. If you h ave not heard from my office by 09-05, do not assume the pathology is mario l, please call [phone] to get the pathology results. - Use prednisone 40 mg PO once a day. - Advance diet as tolerated. - Home tomorrow as long a tolerates diet w/o issue and doing well on Prednisone 40mg daily - [facility] patient to [facility] for [facility] care. - Return to primary care physician as previously scheduled. - Return to endoscopist in 2 weeks. I will need to overbook this appt - Review [email or web address] = [facility]'s [facility] [place] - Thank you for allowing me to help in your patient's care. Do not hesi polanco to call with any questions. Attending Participation: I personally performed the entire procedure. [place] Moore M.D Rahul Niño MD 10/28/2018 3:14:32 PM This report has been signed electronicallyMatthew MD [place] Number of Addenda: 0 Note Initiated On: 10/28/2018 2:23 PM Total Procedure Duration Time 0 hours 23 minutes 21 seconds [email or web address]
--- NOTE | 2018-10-28 16:13 | ASMTCMCOM ---
CM Note CM Note Notes: Chart reviewed for discharge planning purposes. 33 year old female s/p colonoscope with diagnosis of IBD, Crohns vs colitis. No immediate needs identified She is a nursing mother of 3 month old . likely to be able to discharge tomorrow. Plan: dc with family support and f/u with [facility]. Date Signed: 10/28/2018 04:12 PM Electronically Signed By:Nydia Dolan RN
[2018-10-28] MEDS ORDERED: predniSONE 20 MG TAB PO ONE (18:00)
[2018-10-29] MEDS ORDERED: predniSONE 20 MG TAB PO SCH (09:00)
--- NOTE | 2018-10-29 10:22 | SOAPPROG ---
SOAP Progress Note Assessment/Plan: Assessment/Plan: 33 Y F abdominal pain, possible Crohn's. Oral steroids started. Largely tolerating regular diet, although some return of mild discomfort with eating. Dispo: likely today, pending GI input. S: passing gas, having BMs. nausea resolved. cramping resolved. mild more localized discomfort since starting back on solid foods. O: alert, nad, smiling no wob rrr abd soft, mild R sided abd tenderness no rebound or guarding 10/29/18 10:20 Objective: Vital Signs Temp Pulse Resp BP Pulse Ox 36.2 C 60 16 110/76 96 10/29/18 08:48 10/29/18 08:48 10/29/18 08:48 10/29/18 08:48 10/29/18 08:48 Laboratory Results 10/26/18 05:24 10/26/18 05:24 10/28/18 10/29/18 10/30/18 05:59 05:59 05:59 Intake Total 20 3596 Output Total 8035 301 Balance -2358 8409 ICD10 Worksheet Patient Problems: Problems Problem Status Onset Colitis Acute Abdominal pain Acute
--- NOTE | 2018-10-29 11:53 | SOAPPROG ---
CHARLES Progress Note Assessment/Plan: Assessment:Plan: see full dictated consult to follow 33 y/[address] with abn[address] with possible TI inflammation and partial obstruction query IBD? 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 If her epi pain coinutes she will contact me within 2 days and I will start a PPI for approx 4 weeks 2) steroids - on pred 40mg - will taper by 10mg increment per week of NO sx's to 20mg then by 5 mg increments 3) dispo - home today I will make appt for her to see me kin office in about 2 weeks Discussed with Fabiola Howe 10/29/18 11:54 Subjective: CC- prob IBD , now improved on steroids s/p colon with bx doing well had some epi painn with food Objective: Vital Signs Temp Pulse Resp BP Pulse Ox 36.2 C 60 16 110/76 96 10/29/18 08:48 10/29/18 08:48 10/29/18 08:48 10/29/18 08:48 10/29/18 08:48 Laboratory Results 10/29/18 10:17 10/26/18 05:24 10/28/18 10/29/18 10/30/18 05:59 05:59 05:59 Intake Total 20 3596 Output Total 2650 301 Balance -2630 3295 A+Ox3 CTA S1S2 +BS, soft both epi and RLQ tenderness ICD10 Worksheet Patient Problems: Problems Problem Status Onset Colitis Acute Abdominal pain Acute
[2018-10-29 12:21] VITALS: BP 108/79
--- NOTE | 2018-10-29 12:40 | ASMTLACE ---
LACE Length of stay for Answers: 4-6 days current admission Acuity / Level of Answers: Yes Care: Did the patient have an inpatient admission? Comorbidities - select Answers: Opioid dependence all that apply / Chronic pain Other Notes: Hypothyroid # of Emergency department Answers: 1-2 visits in the last 6 months Score: 13 Date Signed: 10/29/2018 12:39 PM Electronically Signed By:Nydia Dolan RN
--- NOTE | 2018-10-29 12:41 | ASMTDCNOTE ---
Case Management Discharge Discharge Order Complete? Answers: Yes Patient to Obtain Answers: via Family Medications Transportation Arranged Answers: Family/Friends Family Notified Answers: Yes Discharge Comments Notes: Patient medically cleared for discharge to home. No current needs. CM available should needs arise. Date Signed: 10/29/2018 12:41 PM Electronically Signed By:Nydia Dolan RN
== END 2018-10-29 13:38 | disposition home or self-care (01) | DRG 387 ==
LOC: OBSVTOIN 10-25 01:05 → F1N 10-25 01:53
PROVIDERS: ADMIT Surgery; ATTEND Surgery
DX: K50.10 Crohn's disease of large intestine without complications (principal); K62.9 Disease of anus and rectum, unspecified; E86.9 Volume depletion, unspecified; E05.90 Thyrotoxicosis, unspecified without thyrotoxic crisis or storm
CPT/HCPCS: 96365; J0696; J1170; J2250; J2405; J2550; J2920; J2930; J3010; J7512; Q9967

== ENCOUNTER → 2018-10-24 | Outpatient (CLI) | payer OTHER | LOC: CIMAGING 13:52 | DX: K59.00 Constipation, unspecified (principal) | CPT/HCPCS: 74019-PO ==

== ENCOUNTER 2018-10-31 21:00 | Inpatient (IN) | payer OTHER ==
[2018-10-31] MEDS ORDERED: NS 1,000 ML IV ONE (21:27)
[2018-10-31] MEDS ORDERED: HYDROmorphONE/DILAUDID 2 MG/ML INJ IVP ONE (21:29)
[2018-10-31] MEDS ORDERED: ONDANSETRON 4 MG/2 ML VIAL IVP ONE (21:29)
[2018-10-31 21:35] LABS: PLATELET COUNT 302 10^3/uL (150-400)
[2018-10-31] MEDS ORDERED: ONDANSETRON DISINTEGRATING 4 MG TAB PO PRN (22:49)
--- NOTE | 2018-10-31 23:49 | EDPHY ---
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 Patient developed abdominal pain at the end of September. Since then she has had intermittent pain. She has been admitted to this hospital to voice. She was discharged only 2 days ago. During her stay she has been seen by Gastroenterology. She has had multiple CT scans. She has had a colonoscopy. This time there is concern for inflammatory bowel disease, according to her Gastroenterology suspects Crohn's disease. She states she has been doing well since discharge until this evening when pain, nausea and vomiting returned. She called the on-call GI service recommended she come back to the emergency department. No report of fevers. No report of urinary symptoms. Review of systems: A 10 point review of systems was obtained and other than described above was negative - Medical/Surgical History Hx Asthma: No Hx Chronic Respiratory Disease: No Hx Diabetes: No Hx Cardiac Disease: No Hx Renal Disease: No Hx Cirrhosis: No Hx Alcoholism: No Hx HIV/AIDS: No Hx Splenectomy or Spleen Trauma: No Other PMH: PVC's, thyroid, gestational diabeties, retained placenta sx, chron's - Social History Smoking Status: Never smoked - Physical Exam Exam: General Appearance: Alert, nontoxic. Eyes: Pupils equal and round no pallor or injection. ENT, Mouth: Mucous membranes moist. Respiratory: There are no retractions, lungs are clear to auscultation. Cardiovascular: Regular rate and rhythm. Gastrointestinal: Bowel sounds are normal. There is mild tenderness to the abdomen most pronounced in the upper abdomen. There is no distention. There is no guarding. Neurological: Alert and oriented x4. Strength and sensation intact and symmetrical. Skin: Warm and dry, no rashes. Musculoskeletal: Neck is supple non tender. Extremities are symmetrical, full range of motion. Psychiatric: Patient is oriented X 3, there is no agitation. Constitutional: Initial Vital Signs Temperature (C) 36.9 C 10/31/18 21:02 Heart Rate 71 10/31/18 21:02 Respiratory Rate 18 10/31/18 21:02 Blood Pressure 112/81 H 10/31/18 21:02 O2 Sat (%) 95 10/31/18 21:02 O2 Delivery Mode Room Air Allergies/Adverse Reactions: No Known Allergies Allergy (Verified 10/31/18 21:02) Home Medications: Medication Instructions Recorded Ascorbic Acid [Vitamin C 500 mg 500 mg PO DAILY 10/23/18 (*)] Bismuth Subsalicylate 15 ml PO Q3 PRN 10/23/18 [Pepto-Bismol oral liquid (*)] Calcium Carbonate [Tums 500MG (*)] 500 mg PO DAILY PRN 10/23/18 Ferrous Sulfate [Ferrous Sulf 325 325 mg PO DAILY 10/23/18 MG (*)] Herbals/Supplements -Info Only 1 ea PO DAILY 10/23/18 Levothyroxine [Synthroid 25 mcg 25 mcg PO DAILY06 10/23/18 (*)] [place] [facility]-3 Fatty Acids [Fish Oil 1000 1,000 mg PO DAILY 10/23/18 mg (*)] predniSONE [Prednisone] 40 mg PO DAILY #80 tablet 10/29/18 Medical Decision Making - Diagnostics Imaging Results: Imaging Impressions Abdomen X-Ray 10/31/18 21:28 Impression: Mid abdominal small bowel obstruction versus ileus. Imaging: I viewed and interpreted images myself ED Course/Re-evaluation: Patient is discussed with my secondary supervising physician Dr. Tracy Magallanes. Patient presents to the emergency department with return of abdominal pain, nausea and vomiting. Evaluation in the emergency room with KUB is concerning for ileus versus small-bowel obstruction. Symptoms are well controlled. I will admit her to the hospitalist service under the care of Dr. Tristan Bell. I have consulted with on-call GI, Dr. Nuno, he will see patient in the morning. The plan has been discussed with the patient voiced understanding and agreement with it. Differential Diagnosis: Included but not limited to colitis, ileus, bowel obstruction, bowel perforation - Data Points Laboratory Results: Laboratory Results 10/31/18 21:17 10/31/18 21:17 10/31/18 10/31/18 10/31/18 21:17 21:17 21:17 WBC 10.64 10^3/uL H 10^3/uL (3.80-9.50) RBC 5.12 10^6/uL 10^6/uL (4.18-5.33) Hgb 16.4 g/dL H g/dL (12.6-16.3) Hct 49.1 % H % (38.0-47.0) MCV 95.9 fL fL (81.5-99.8) MCH 32.0 pg pg (27.9-34.1) MCHC 33.4 g/dL g/dL (32.4-36.7) RDW 12.0 % % (11.5-15.2) Plt Count 302 10^3/uL 10^3/uL (150-400) MPV 10.9 fL fL (8.7-11.7) Neut % (Auto) 79.5 % H % (39.3-74.2) Lymph % (Auto) 12.1 % L % (15.0-45.0) [place] % (Auto) 5.4 % % (4.5-13.0) Eos % (Auto) 0.1 % L % (0.6-7.6) Baso % (Auto) 0.8 % % (0.3-1.7) Nucleat RBC Rel Count 0.0 % % (0.0-0.2) Absolute Neuts (auto) 8.47 10^3/uL H 10^3/uL (1.70-6.50) Absolute Lymphs (auto) 1.29 10^3/uL 10^3/uL (1.00-3.00) Absolute Monos (auto) 0.57 10^3/uL 10^3/uL (0.30-0.80) Absolute Eos (auto) 0.01 10^3/uL L 10^3/uL (0.03-0.40) Absolute Basos (auto) 0.08 10^3/uL 10^3/uL (0.02-0.10) Absolute Nucleated RBC 0.00 10^3/uL 10^3/uL (0-0.01) Immature Gran % 2.1 % H % (0.0-1.1) Immature Gran # 0.22 10^3/uL H 10^3/uL (0.00-0.10) Sodium 137 mEq/L mEq/L (135-145) Potassium 4.4 mEq/L mEq/L (3.5-5.2) Chloride 100 mEq/L mEq/L (97-110) Carbon Dioxide 27 mEq/l mEq/l (22-31) Anion Gap 10 mEq/L mEq/L (6-14) BUN 15 mg/dL mg/dL (7-23) Creatinine 0.8 mg/dL mg/dL (0.6-1.0) Estimated GFR > 60 Glucose 110 mg/dL H mg/dL (70-100) Calcium 10.2 mg/dL mg/dL (8.5-10.4) Total Bilirubin 0.4 mg/dL mg/dL (0.1-1.4) Conjugated Bilirubin 0.4 mg/dL mg/dL (0.0-0.5) Unconjugated Bilirubin 0.0 mg/dL mg/dL (0.0-1.1) AST 39 IU/L IU/L (14-46) ALT 63 IU/L H IU/L (9-52) Alkaline Phosphatase 48 IU/L IU/L (38-126) Total Protein 7.5 g/dL g/dL (6.3-8.2) Albumin 4.8 g/dL g/dL (3.5-5.0) Lipase 57 IU/L IU/L (23-300) Beta HCG, Qual NEGATIVE Medications Given: Discontinued Medications Hydromorphone HCl (Dilaudid) 0.5 mg IVP EDNOW ONE Stop: 10/31/18 21:30 Last Admin: 10/31/18 21:35 Dose: 0.5 mg Sodium Chloride (Ns) 1,000 mls @ 0 mls/hr IV EDNOW ONE; Wide Open PRN Reason: Protocol Stop: 10/31/18 21:28 Last Admin: 10/31/18 21:34 Dose: 1,000 mls Ondansetron HCl (Zofran) 4 mg IVP EDNOW ONE Stop: 10/31/18 21:30 Last Admin: 10/31/18 21:34 Dose: 4 mg Departure - Departure Disposition: [facility] Inpatient Acute Clinical Impression: Abdominal pain Qualifiers: Abdominal location: upper abdomen, unspecified Qualified Code(s): R10.10 - Upper abdominal pain, unspecified Condition: Good
--- NOTE | 2018-11-01 00:16 | PDGENHP ---
History and Physical - Chief Complaint Abdominal pain - History of Present Illness 33 yo F w/ complicated recent course presents with ongoing abdominal pain. The patient gave about 3 months ago. Since that time she has been having intermittent loose stools. She denies blood or mucus in her stools. Then, over the last 8 days, she developed epi-gastric abdominal pain, nausea, and vomiting. She has been seen in the [facility] on multiple occasions over this period. She was admitted from 10/25-10/30 for investigation of these symptoms. Evaluation was notable for CT scan demonstrating inflammation of terminal ilium and ascending colon as well as colonoscopy with findings possibly c/w Crohn's disease. The pathology for biopsies revealed only lymphoid aggregates. Her symptoms improved with steroids so she was discharged home with prednisone 40 mg qD. She initially tolerated some PO intake but today her epi-gastric pain and nausea returned again. She has not vomited or had a bowel movement since her colonoscopy. She continues to deny blood in her stool. She presented to her GI doctor's office today and was prescribed a PPI and GI cocktail. Her symptoms continued to worsen, however, so she again presents to the ED for evaluation. In the ED an XR is notable for ileus vs. SBO. Her pain is mild to moderate at this time. She is being admitted for further management. Case discussed with ED NENA Boogie; records reviewed and summarized above. History Information - Allergies/Home Medication List Allergies/Adverse Reactions: No Known Allergies Allergy (Verified 10/31/18 21:02) Home Medications: Ascorbic Acid [Vitamin C 500 mg (*)] 500 mg PO DAILY 10/23/18 [Last Taken ] Bismuth Subsalicylate [Pepto-Bismol oral liquid (*)] 15 ml PO Q3 PRN 10/23/18 [ Last Taken 10/23/18] Calcium Carbonate [Tums 500MG (*)] 500 mg PO DAILY PRN 10/23/18 [Last Taken ] Ferrous Sulfate [Ferrous Sulf 325 MG (*)] 325 mg PO DAILY 10/23/18 [Last Taken 10/21/18] Herbals/Supplements -Info Only 1 ea PO DAILY 10/23/18 [Last Taken Unknown] Levothyroxine [Synthroid 25 mcg (*)] 25 mcg PO DAILY06 10/23/18 [Last Taken ] [place]-3 Fatty Acids [Fish Oil 1000 mg (*)] 1,000 mg PO DAILY 10/23/18 [Last Taken 10/21/18] I have personally reviewed and updated: family history, medical history Past Medical History: hypothyroid, gestational DM - Surgical History Additional surgical history: chemo embo of uterine bleeder post- - Family History Additional family history: no Crohns or UC - Social History Smoking Status: Never smoked Review of Systems Review of Systems: ROS: 10pt was reviewed & negative except for what was stated in HPI & below Physical Exam Physical Exam: Temp Pulse Resp BP Pulse Ox 36.9 C 56 L 16 105/74 94 10/31/18 21:02 10/31/18 22:48 10/31/18 22:48 10/31/18 22:48 10/31/18 22:48 Constitutional: appears nourished, uncomfortable Eyes: PERRL, EOMI Ears, Nose, Mouth, Throat: moist mucous membranes, no oral mucosal ulcers Cardiovascular: regular rate and rhythym, no murmur, rub, or gallop Respiratory: no respiratory distress, clear to auscultation Gastrointestinal: tenderness (Epi-gatric and lower quadrants), No guarding, No rebound, No distension Skin: warm, normal color Musculoskeletal: full muscle strength, no muscle tenderness Neurologic: AAOx3, CN II-XII Intact Psychiatric: interacting appropriately, not anxious Lab Data & Imaging Review 10/31/18 21:17 10/31/18 21:17 WBC 10.64 10^3/uL (3.80-9.50) H 10/31/18 21:17 RBC 5.12 10^6/uL (4.18-5.33) 10/31/18 21:17 Hgb 16.4 g/dL (12.6-16.3) H 10/31/18 21:17 Hct 49.1 % (38.0-47.0) H 10/31/18 21:17 MCV 95.9 fL (81.5-99.8) 10/31/18 21:17 MCH 32.0 pg (27.9-34.1) 10/31/18 21:17 MCHC 33.4 g/dL (32.4-36.7) 10/31/18 21:17 RDW 12.0 % (11.5-15.2) 10/31/18 21:17 Plt Count 302 10^3/uL (150-400) 10/31/18 21:17 MPV 10.9 fL (8.7-11.7) 10/31/18 21:17 Neut % (Auto) 79.5 % (39.3-74.2) H 10/31/18 21:17 Lymph % (Auto) 12.1 % (15.0-45.0) L 10/31/18 21:17 [place] % (Auto) 5.4 % (4.5-13.0) 10/31/18 21:17 Eos % (Auto) 0.1 % (0.6-7.6) L 10/31/18 21:17 Baso % (Auto) 0.8 % (0.3-1.7) 10/31/18 21:17 Nucleat RBC Rel Count 0.0 % (0.0-0.2) 10/31/18 21:17 Absolute Neuts (auto) 8.47 10^3/uL (1.70-6.50) H 10/31/18 21:17 Absolute Lymphs (auto) 1.29 10^3/uL (1.00-3.00) 10/31/18 21:17 Absolute Monos (auto) 0.57 10^3/uL (0.30-0.80) 10/31/18 21:17 Absolute Eos (auto) 0.01 10^3/uL (0.03-0.40) L 10/31/18 21:17 Absolute Basos (auto) 0.08 10^3/uL (0.02-0.10) 10/31/18 21:17 Absolute Nucleated RBC 0.00 10^3/uL (0-0.01) 10/31/18 21:17 Immature Gran % 2.1 % (0.0-1.1) H 10/31/18 21:17 Immature Gran # 0.22 10^3/uL (0.00-0.10) H 10/31/18 21:17 Sodium 137 mEq/L (135-145) 10/31/18 21:17 Potassium 4.4 mEq/L (3.5-5.2) 10/31/18 21:17 Chloride 100 mEq/L (97-110) 10/31/18 21:17 Carbon Dioxide 27 mEq/l (22-31) 10/31/18 21:17 Anion Gap 10 mEq/L (6-14) 10/31/18 21:17 BUN 15 mg/dL (7-23) 10/31/18 21:17 Creatinine 0.8 mg/dL (0.6-1.0) 10/31/18 21:17 Estimated GFR > 60 10/31/18 21:17 Glucose 110 mg/dL (70-100) H 10/31/18 21:17 Calcium 10.2 mg/dL (8.5-10.4) 10/31/18 21:17 Total Bilirubin 0.4 mg/dL (0.1-1.4) 10/31/18 21:17 Conjugated Bilirubin 0.4 mg/dL (0.0-0.5) 10/31/18 21:17 Unconjugated Bilirubin 0.0 mg/dL (0.0-1.1) 10/31/18 21:17 AST 39 IU/L (14-46) 10/31/18 21:17 ALT 63 IU/L (9-52) H 10/31/18 21:17 Alkaline Phosphatase 48 IU/L (38-126) 10/31/18 21:17 Total Protein 7.5 g/dL (6.3-8.2) 10/31/18 21:17 Albumin 4.8 g/dL (3.5-5.0) 10/31/18 21:17 Lipase 57 IU/L (23-300) 10/31/18 21:17 Beta HCG, Qual NEGATIVE 10/31/18 21:17 Imaging Review: Imaging Impressions Abdomen X-Ray 10/31/18 21:28 Impression: Mid abdominal small bowel obstruction versus ileus. Assessment & Plan Assessment: 33 yo F w/ recent, tentative diagnosis of Crohn's disease presents with likely ileus. Plan: 1. 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 Her underlying GI process (Crohn's, gastritic, etc.) is likely responsible for this. It is unclear at this point if an additional process aside from presumed Crohn's is ongoing. - Admit for observation - Bowel rest, NPO, ADAT - Will trial PPI IV BID - mIVF, anti-emetics PRN - GI consulted, may benefit from EGD 2. ?Crohn's Disease - The diagnosis remains tentative at this point as her symptoms are fairly recent. She has been having loose stools since the of her daughter [address] scan demonstrated inflammation of terminal ilium and ascending colon. A colonoscopy performed on 10/28 revealed inflamed mucosa likely consistent with Crohn's. Pathology was unrevealing but this may have been skewed by ongoing steroid therapy. She has been on daily prednisone since discharge. She was prescribed mesalamine on day of admission but has not yet started taking this. - Will continue daily prednisone - GI consulted Diet - NPO, mIVF Code - Full Ppx - SCDs noting recent obstetric bleeding complications Dispo - Admit under observation status
[2018-11-01] MEDS: NS 1,000 ML IV SCH ×2 (00:45→05:53)
[2018-11-01] MEDS: HYDROmorphONE/DILAUDID 1 MG/ML INJ IVP PRN ×4 (02:18→19:39)
[2018-11-01 08:04] LABS: PLATELET COUNT 254 10^3/uL (150-400)
[2018-11-01] MEDS ORDERED: predniSONE 20 MG TAB PO SCH (09:00)
[2018-11-01] MEDS: PANTOPRAZOLE SODIUM 40 MG VIAL IVP SCH ×2 (09:33→21:54)
[2018-11-01] MEDS: ONDANSETRON 4 MG/2 ML VIAL IVP PRN (11:35)
[2018-11-01] MEDS: PROMETHAZINE HCL 25 MG/ML INJ IVP PRN (12:20)
--- NOTE | 2018-11-01 12:38 | GCON ---
[f rep st] CONSULTATION DATE OF CONSULTATION: 11/01/2018 REQUESTING PHYSICIAN: Dr. Bell. REASON FOR CONSULTATION: Abdominal pain, possible Crohn disease. Dear Dr. Bell: Thank you very kindly for asking me to evaluate this patient in consultation for abdominal pain. She is a pleasant and previously healthy 33-year-old female who developed new-onset abdominal problems a fter her delivery of a healthy baby. She has no prior history of gastrointestinal disease, but was a dmitted in September for abdominal pain and episodic diarrhea that had been episodic for about the 3 mo nths after her delivery. Imaging performed during her last admission showed CT evidence of thickenin g to the cecum and to the ileum. A colonoscopy was performed because of this, which showed very mild erythema, congestion, and irritation in the distal ileum, terminal ileum, and right colon, but, inte restingly, biopsies did not show any features of inflammation and were normal. She did, however, res pond initially to IV steroids and was placed on oral prednisone and sent home. Her symptoms of pain, however, worsened after discharge, and she re-presents to the ER with mostly upper and periumbilical abdominal discomfort. Imaging performed in the ER included an abdominal x-ray, which showed a small intestinal ileus or obstruction characterized by air-fluid levels in the midabdomen without bowel ga s in the colon. She has been admitted for further evaluation and management. PAST MEDICAL HISTORY: She also has known hypothyroidism and had gestational diabetes. Otherwise unr emarkable. PAST SURGICAL HISTORY: In vitro fertilization and embolization of what sounds like a bleeding uterin e artery after delivery. FAMILY HISTORY: Negative for inflammatory bowel disease. SOCIAL HISTORY: No tobacco. No alcohol. No substance abuse. MEDICATIONS: On admission include an herbal supplement, iron, levothyroxine, omega-3 fatty acids, vi tamin C. She has recently been placed on bismuth, and she takes Tums for indigestion. ALLERGIES: None known. REVIEW OF SYSTEMS: CONSTITUTIONAL: Denies fever or chills. Denies night sweats. She has lost 10 p ounds of weight and has had no appetite, mostly because eating seems to aggravate her abdominal pain. PULMONARY: No cough or shortness of breath. CARDIOVASCULAR: No chest pains or palpitations. MUS CULOSKELETAL: No joint swelling. No muscle pain. No joint pain. DERMATOLOGIC: No rash, jaundice, or lesion has been noted. GENITOURINARY: No flank pain. No dysuria. GYNECOLOGIC: No vaginal ble eding or pelvic pain. LYMPH: No adenopathy or glandular swelling. HEMATOLOGIC: No bruising or epi staxis. GASTROINTESTINAL: She describes diffuse abdominal swelling, but mostly epigastric and periu mbilical tenderness. She describes the swelling as feeling more distended or bloated. Denies melena , hematochezia, heartburn, dysphagia, or chest pain. ENDOCRINE: No heat or cold intolerance. No po lyuria, polydipsia. NEUROLOGIC: No paresthesias, focal motor weakness, or seizure. PHYSICAL EXAM: VITAL SIGNS: Blood pressure is 107/64, heart rate is 56, respirations are 16. [place] is 92% on room air. GENERAL: A thin, but healthy-appearing female in no acute distress. [place] NT: Normocephalic, atraumatic. Oropharynx is clear. NECK: Supple. No adenopathy. PULMONARY: Cl ear to auscultation bilaterally. No costochondral tenderness. CARDIOVASCULAR: Regular rate and rhy thm without murmur, rub, or gallop. GI: Abdomen is soft, compressible, nondistended. Bowel sounds are intermittently normal. There are no high-pitched bowel sounds or rashes. No palpable mass or le garett. No abdominal bruit. No ascites. MUSCULOSKELETAL: Normal gait and station without joint defo rmity, swelling, or warmth. DERMATOLOGIC: No jaundice, rash, or lesion is noted. NEUROLOGIC: Aler t to person, place, and time. Normal speech and affect. Motor nonfocal. No asterixis. LYMPH: No glandular swelling or adenopathy in the anterior cervical chain, axillary, or femoral areas. LABORATORY DATA: Database includes white blood count is 10.8, hematocrit is 43.5, platelets are 254. INR is 1.0. Sodium is 139, potassium is 4.0, chloride is 107, bicarbonate 27, BUN is 15, creatinin e is 0.8, glucose is 89, calcium 9.1. There is a slight elevation in her ALT, but other LFTs are nor mal. IMAGING: Includes an abdominal x-ray on October 31, 2018, which shows air-fluid levels in the midabd omen consistent with ileus or small bowel obstruction, otherwise lack of bowel gas throughout the res t of the abdomen. The pattern is worse since October 26. Soft tissue and bones are normal. [facility] includes additionally a CT scan of the abdomen and pelvis on October 24, 2018. This shows a mario l liver, normal biliary anatomy, normal pancreas. There is circumferential wall thickening of the te rminal ileum and cecum with multiple fluid-filled, dilated loops of small bowel. There is a large am ount of stool throughout the colon, which seems worse than previous imaging. There is a small amount of diffuse ascites in the pericolic gutter and pelvis. The descending and sigmoid colon are decompr essed, with possible circumferential wall thickening there, but incomplete distention. No pneumoperi toneum. No abscess. There is a small amount of free fluid in the pelvis. There is also noted fecal ization of the small bowel. Colonoscopy was performed on October 28, 2018. It showed a scattered ar ea of mild congestion and erythema in the terminal ileum. The cecum and ascending colon were also de scribed as having a very mild alteration in vascularity with erythematous mucosa. Biopsies of the il eum and right colon were taken. Pathology specimens show normal terminal ileal mucosa with prominent lymphoid aggregates. There is no evidence of ileitis and no granulomas. Cecum and ascending colon biopsies are normal. IMPRESSION: 1. Abdominal pain. 2. Radiographic abnormality of thickening in the terminal ileum and cecum. 3. Ileus versus small bowel obstruction. 4. Radiographic evidence of constipation with fecalization of the small bowel on CT, which may be co ntributing to some of these processes. RECOMMENDATIONS: 1. I would not treat her as inflammatory bowel disease with the data we have currently. By endoscop ic criteria, there is very minimal disease and, interestingly, histologically, no evidence of Crohn's . The radiographic thickening is not enough to make a diagnosis of Crohn's ileitis or Crohn's coliti s, and further evaluation will be needed. 2. Clear liquid diet. 3. Again, no IV steroids at this time, although I am unclear as to why these benefitted her previous ly. 4. MR enterography tomorrow, if she is able to tolerate a clear liquid diet, for further evaluation of this small bowel and colonic thickening and to obtain better information to help distinguish betwe en an ileus versus possibly more of a mechanical bowel obstructive process and also to gain better in formation about whether there is inflammatory bowel disease. 5. May need to perform further endoscopic evaluation. Pending the results of her MR enterography, w e can discuss upper endoscopy and repeat colonoscopy for further endoscopic evaluation or tissue samp ling. 6. Further recommendations to follow. Again, mostly we will do IV fluids, symptomatic control of he r symptoms, MR enterography, and then discuss further endoscopic and colonoscopy intervention. /[id number]/MODL
--- NOTE | 2018-11-01 13:13 | HOSPPROG ---
Hospitalist Progress Note Assessment/Plan: 33 yo F w/ recent, tentative diagnosis of Crohn's disease presents with likely ileus. First encounter, chart reviewed. D/W Dr Nuno and Dr West. Plan: #Abdominal pain - Most likely representative phlebotomy services of ileus noting air-fluid level noted on XR - lack of BM for several days - pain and cramping with liquids - Her underlying GI process (Crohn's, gastritic, etc.) is likely responsible for this - Bowel rest, NPO, ADAT - Will trial PPI IV BID - mIVF, anti-emetics PRN - GI consulted, appreciate -consulted surgery # ?Crohn's Disease - The diagnosis remains tentative at this point as her symptoms are fairly recent - She has been having loose stools since the of her daughter 3 months ago. - Recent CT scan demonstrated inflammation of terminal ilium and ascending colon. - A colonoscopy performed on 10/28 revealed inflamed mucosa likely consistent with Crohn's. - states she feels better on steriod therapy - Pathology was unrevealing - Will continue daily prednisone Diet - NPO, mIVF Code - Full Ppx - SCDs noting recent obstetric bleeding complications Dispo -change to inpt status -requires further evaluation for diagnosis Subjective: Still having significnat abdomnial pain. Unable to eat or drink. Objective: Vital Signs Temp Pulse Resp BP Pulse Ox 36.7 C 55 L 16 108/70 91 L 11/01/18 11:13 11/01/18 11:13 11/01/18 11:13 11/01/18 11:13 11/01/18 11:13 Laboratory Results 11/01/18 07:52 11/01/18 07:52 10/31/18 11/01/18 11/02/18 05:59 05:59 05:59 Intake Total 100 Balance 100 - Physical Exam Constitutional: appears nourished, uncomfortable, No obese Eyes: PERRL, anicteric sclera, EOMI Ears, Nose, Mouth, Throat: moist mucous membranes, hearing normal, ears appear normal Cardiovascular: regular rate and rhythym, No JVD, No edema Respiratory: no respiratory distress, no rales or rhonchi, reduced air movement Gastrointestinal: tenderness, distension, No normoactive bowel sounds, No ascites Skin: warm, normal color, No mottled Musculoskeletal: normal joint ROM, no joint effusions, generalized weakness Neurologic: AAOx3 Psychiatric: interacting appropriately, not anxious, not encephalopathic, thought process linear ICD10 Worksheet Patient Problems: Problems Problem Status Onset Abdominal pain Acute Colitis Acute
--- NOTE | 2018-11-01 13:59 | GCON ---
[f rep st] CONSULTATION DATE OF CONSULTATION: 11/01/2018 CHIEF COMPLAINT: Abdominal pain with nausea and vomiting. HISTORY OF PRESENT ILLNESS: This is a 33-year-old female, well-known to me and the surgical team. Rachael lazar, she was admitted over a week ago with abdominal pain and a CT scan at that point in time daryl h showed colitis. She had an uneventful one night hospital stay and was subsequently sent home. She was subsequently presented back to the emergency department about 24 hours later with worsening abdo caitlin pain and was readmitted for subsequent treatment and workup of this. She had a fairly uneventf ul hospital course. She was seen by Gastroenterology, subsequently prepped, had a colonoscopy with b iopsies which were fairly underwhelming, although there was a significant amount of inflammation seen during the scope itself. She was subsequently sent home, tolerating a regular diet, having bowel fu nction, on steroids. She re-presented last night having worsening abdominal pain consistent with her last admission and the inability to really keep anything down. On my consultation this morning, she just attempted to drink some liquids and had worsening abdominal pain with this. She currently describes midepigastric pain, 7/10 in intensity, colicky in nature. She has not passed any flatus or had any bowel movements in 24 hours. She denies having any fevers o r chills. She states that she did go home, was able to have a few meals, but that things significant ly progressed over the last 24 hours. PAST MEDICAL HISTORY: Gestational diabetes and hypothyroidism. PAST SURGICAL HISTORY: Chemoembolization of uterine bleeder . FAMILY HISTORY: No inflammatory bowel disease. SOCIAL HISTORY: is at bedside. Denies illicit drug use. Does not smoke. REVIEW OF SYSTEMS: A full 10-point review was performed. CURRENT MEDICATIONS: Reviewed in [facility]. ALLERGIES: None. PHYSICAL EXAMINATION: VITAL SIGNS: Temperature 36.7, blood pressure 108/70, heart rate 55. She is 91% on room air. CONSTITUTIONAL: She appears sleepy, in mild distress. EYES: Her pupils are equal , round, and reactive to light and accommodation. She has anicteric sclerae. Her extraocular moveme nts are intact. EARS, NOSE, MOUTH, THROAT: She has dry mucous membranes. Her hearing is normal. S he has normal dentition. CARDIOVASCULAR: She has a regular rate and rhythm without any murmurs, rub s, or gallops. RESPIRATORY: She has no respiratory distress, rales or rhonchi, and she is clear to auscultation bilaterally. GI: She has hypoactive bowel sounds. She is soft. She is maybe minimall y distended. She is tender in the mid abdomen without rebound, tenderness or guarding, and no masses appreciated. SKIN: Warm. Normal color. No rashes or abrasions. MUSCULOSKELETAL: She has full s trength. No tenderness. Normal joint range of motion. NEUROLOGIC: She is alert and oriented x3. Her cranial nerves 2-12 are intact. She is not weak or numb. PSYCH: She is interacting appropriate ly. She is sleepy. She is not anxious or encephalopathic. LYMPH/HEME/IMMUNOLOGIC: She has no cerv ical, groin, or supraclavicular lymphadenopathy appreciated. LABORATORY DATA: Leukocytosis last night to 10.6, today is 10.8. Hemoglobin and hematocrit are stab le at 14 and 43. Platelets are normal at 254. Chemistry is largely unremarkable. Sodium is 139, po tassium is 4, BUN is 15, and a creatinine of 0.8. IMAGING: Includes an abdominal x-ray, which was personally reviewed, which shows air-fluid levels wi thin the small bowel consistent with ileus versus small bowel obstruction. ASSESSMENT/PLAN: A 33-year-old female now re-admitted with persistent abdominal pain and obstructive -type symptoms. I do feel as though this is a functional obstruction, the etiology of which is uncle ar. I discussed the case with lock plater, Dr. Nuno. Plan at this point in time would be to obtain more imaging, possibly repeat scope depending on what the imaging showed. There still is a s mall chance even though the biopsies were normal that this could represent a sentinel episode of Croh n's disease, as she did get significantly better when she was on higher dose steroids. From a surgic al standpoint, her abdomen is soft, minimally distended. Would reserve surgery at this point in time either for diagnostic purposes, which I feel would be better left to more conservative measures, as well as if she were to get worse and require treatment for some kind of complication secondary to thi s. We will continue to follow with you and help manage accordingly. /[id number]/MODL
[2018-11-01] MEDS: methylPREDNISolone SOD SUCC 40 MG/ML VIAL IVP SCH ×2 (14:25→18:29)
--- NOTE | 2018-11-01 15:51 | ASMTCMCOM ---
CM Note CM Note Notes: Pt has been admitted with abdominal pain and obstructive type sx. She was in [facility] for similar sx 10/25-10/30. She had a baby 3 months ago and has been having these sx since. Possibly may have SBO or Crohn's. GI and surgery are consulting. CM will follow for any d/c needs. D/C plan: TBD Date Signed: 11/01/2018 03:50 PM Electronically Signed By:THOMAS Rudd
--- NOTE | 2018-11-01 16:39 | PDMN ---
Medical Necessity Medical necessity: MCG : M200 ileus 2 days: pt presents with N/V , worsening abd pain- , inability to maintain PO. abd x ray shows mid abdominal SBO vs ileus- status changed to INPT 11/01 for ongoing med nec. further monitoring and eval of abd pain- GI consult- sgy consult.. pt will be NPO with IVF, IV steroids, IV pain., IV antiemetic's, IV protonix,
[2018-11-02] MEDS: methylPREDNISolone SOD SUCC 40 MG/ML VIAL IVP SCH ×5 (00:57→23:36)
[2018-11-02] MEDS: NS 1,000 ML IV SCH ×2 (04:42→23:40)
[2018-11-02] MEDS: LEVOTHYROXINE 25 MCG TAB PO SCH (05:09)
[2018-11-02] MEDS: PANTOPRAZOLE SODIUM 40 MG VIAL IVP SCH ×2 (09:42→21:17)
--- NOTE | 2018-11-02 10:38 | SOAPPROG ---
[facility] Progress Note Assessment/Plan: Assessment: 33yo F c persistent abdominal pain, ileus vs SBO - vitals remain stable - patient had a lot of pain last night, KUB ordered (images reviewed) which show little change from previous, no free air or distinct pathology - steroids were restarted and she feels much better which leads me to believe this is is primary inflammatory process (wouldnt think she would get better if were mech obstruction or ischemic in nature) - planning for MR today, may need repeat scope if clear pathology apparent - agree with GI that getting a clear Dx would help guide treatment although she clearly progresses with steroids. Plan: 11/02/18 10:35 Subjective: feels much better with steroids. Objective: Vital Signs Temp Pulse Resp BP Pulse Ox 37.2 C 50 L 13 102/63 97 11/02/18 07:46 11/02/18 07:46 11/02/18 07:46 11/02/18 07:46 11/02/18 07:46 11/01/18 11/02/18 11/03/18 05:59 05:59 05:59 Intake Total 2200 Balance 2200 ICD10 Worksheet Patient Problems: Problems Problem Status Onset Abdominal pain Acute Colitis Acute
--- NOTE | 2018-11-02 11:17 | SOAPPROG ---
SOAP Progress Note Assessment/Plan: Assessment: 1. SBO 2. Ileitis responsive to steroids- possibly IBD 3. Generalized abdominal pain 4. Nausea Plan: 1. Cancel MRE today 2. Clears only 3. PICC line for TPN to start tomorrow please 4. Would proceed with EGD and colonoscopy once able (resolution of SBO/ileus enough to allow bowel prep and procedures) 5. Check AM CBC, CRP, ESR, and lytes 6. Continue IV solumedrol 30mg IV q6hrs 7. AM KUB 11/02/18 11:14 Subjective: CC: SBO Less abdominal pain and nausea with IV steroids. No flatus. No BM Objective: Vital Signs Temp Pulse Resp BP Pulse Ox 37.2 C 50 L 13 102/63 97 11/02/18 07:46 11/02/18 07:46 11/02/18 07:46 11/02/18 07:46 11/02/18 07:46 11/01/18 11/02/18 11/03/18 05:59 05:59 05:59 Intake Total 2200 Balance 2200 Physical Exam - Physical Exam General Appearance: WD/WN, no apparent distress, thin EENT: normal ENT inspection Neck: supple Respiratory: lungs clear Cardiac/Chest: regular rate, rhythm Abdomen: non-tender, soft, distended, other (Very hypoactive bowel sounds with intermittent high pitches), No guarding, No rebound, No ascites Skin: normal color, warm/dry Neuro/Psych: alert, oriented x 3 ICD10 Worksheet Patient Problems: Problems Problem Status Onset Abdominal pain Acute Colitis Acute
[2018-11-02] MEDS ORDERED: ALTEPLASE 2 MG VIAL IVP PRN (11:20)
--- NOTE | 2018-11-02 12:46 | HOSPPROG ---
Hospitalist Progress Note Assessment/Plan: 33 yo F w/ recent, tentative diagnosis of Crohn's disease presents with likely ileus/SBO. D/W Dr Nuno and Dr West. Plan: #Abdominal pain -related to SBO #SBO - etiol unclear - responds to steriod - lack of BM for several days - pain and cramping with liquids - Her underlying GI process (Crohn's, gastritic, etc.) is likely responsible for this - Bowel rest, clears - mIVF, anti-emetics PRN - PICC line for TPN to start tomorrow - EGD and colonoscopy once able (resolution of SBO/ileus enough to allow bowel prep and procedures) - Check AM CBC, CRP, ESR, and lytes - Continue IV solumedrol 30mg IV q6hrs - AM KUB # ?Crohn's Disease - The diagnosis remains tentative at this point as her symptoms are fairly recent - She has been having loose stools since the of her daughter 3 months ago. - Recent CT scan demonstrated inflammation of terminal ilium and ascending colon. - A colonoscopy performed on 10/28 revealed inflamed mucosa likely consistent with Crohn's. - states she feels better on steriod therapy - Pathology was unrevealing Diet - NPO, clear liquids Code - Full Ppx - SCDs noting recent obstetric bleeding complications Dispo -change to inpt status -requires further evaluation for diagnosis Subjective: Abd pain feeling much better. Still not passing gas. Concerned about diagnosis. Objective: Vital Signs Temp Pulse Resp BP Pulse Ox 37.2 C 50 L 13 102/63 97 11/02/18 07:46 11/02/18 07:46 11/02/18 07:46 11/02/18 07:46 11/02/18 07:46 11/01/18 11/02/18 11/03/18 05:59 05:59 05:59 Intake Total 2200 Balance 2200 - Physical Exam Constitutional: no apparent distress, not in pain, No obese Eyes: PERRL, anicteric sclera, EOMI Ears, Nose, Mouth, Throat: moist mucous membranes, hearing normal, ears appear normal Cardiovascular: No JVD, No tachycardia, No edema Respiratory: no respiratory distress, no rales or rhonchi, reduced air movement Gastrointestinal: tenderness, distension, No normoactive bowel sounds, No ascites Skin: warm, normal color, No mottled Musculoskeletal: normal joint ROM, no joint effusions, generalized weakness Neurologic: AAOx3 Psychiatric: interacting appropriately, not anxious, not encephalopathic ICD10 Worksheet Patient Problems: Problems Problem Status Onset Colitis Acute Abdominal pain Acute
[2018-11-02] MEDS ORDERED: LORazepam 2 MG/ML INJ IVP ONE (23:12)
--- NOTE | 2018-11-03 02:37 | HOSPPROG ---
Hospitalist Progress Note Assessment/Plan: XC: Notified by RN of ongoing abdominal discomfort. I evaluated the patient and she was displaying mild distention and some ongoing pain. However, her abdomen was soft and minimally tender. I discussed the possibility of an NGT with the patient but she declined as her discomfort was mild. On re-evaluation a few hours later the patient was sleeping comfortably. I discussed the case w/ GI Dr. Nuno who agreed with this management. Objective: Vital Signs Temp Pulse Resp BP Pulse Ox 36.8 C 54 L 16 109/73 90 L 11/03/18 00:45 11/03/18 00:45 11/03/18 00:45 11/03/18 00:45 11/03/18 00:45 11/01/18 11/02/18 11/03/18 05:59 05:59 05:59 Intake Total 2200 1200 Balance 2200 1200 ICD10 Worksheet Patient Problems: Problems Problem Status Onset Colitis Acute Abdominal pain Acute
[2018-11-03] MEDS: methylPREDNISolone SOD SUCC 40 MG/ML VIAL IVP SCH ×4 (05:37→23:34)
[2018-11-03] MEDS: LEVOTHYROXINE 25 MCG TAB PO SCH (06:52)
[2018-11-03] MEDS ORDERED: D10W 1,000 ML IV PRN (11:20)
--- NOTE | 2018-11-03 12:20 | SOAPPROG ---
SOAP Progress Note Assessment/Plan: Assessment: 1. SBO 2. Ileitis responsive to steroids- possibly IBD 3. Generalized abdominal pain 4. Nausea Plan: 1. 2 way today 2. PICC line 3. TPN to start today 4. Will proceed with CTA of abdomen and pelvis tomorrow if continued obstruction 5. Clears and sips only as tolerated. 6. NG decompression will be needed if not improved overnight 7. Will obtain stool studies for exclusion of infectious ileitis once she has stool output. Extensive face to face family meeting today for 35 minutes with patient as well discussing her ileitis, medical management, nutrition with TPN and PICC line and imaging tomorrow and coordination of care with medicine and surgery today. 11/03/18 12:21 Subjective: CC: Abdominal distention and generalized abdominal pain Patient had 1 episode of flatus today. No BM. Anxious overnight improved with ativan Objective: Vital Signs Temp Pulse Resp BP Pulse Ox 36.6 C 71 18 116/67 92 11/03/18 11:49 11/03/18 11:49 11/03/18 11:49 11/03/18 11:49 11/03/18 11:49 Laboratory Results 11/03/18 04:20 11/03/18 04:00 11/02/18 11/03/18 11/04/18 05:59 05:59 05:59 Intake Total 2200 2300 Balance 2200 2300 Physical Exam - Physical Exam General Appearance: no apparent distress, thin Neck: full range of motion, supple Respiratory: lungs clear Cardiac/Chest: regular rate, rhythm Abdomen: non-tender, soft, distended, No guarding, No rebound, No ascites Back: No CVA tenderness Skin: normal color, warm/dry Lymphatic: no adenopathy Extremities: No swelling Neuro/Psych: alert, oriented x 3, other (Anxious.) ICD10 Worksheet Patient Problems: Problems Problem Status Onset Abdominal pain Acute Colitis Acute
[2018-11-03] MEDS: PANTOPRAZOLE SODIUM 40 MG VIAL IVP SCH ×2 (12:25→22:05)
[2018-11-03] MEDS: NS 1,000 ML IV SCH (12:26)
--- NOTE | 2018-11-03 13:13 | HOSPPROG ---
Hospitalist Progress Note Assessment/Plan: 33 yo F w/ recent, tentative diagnosis of Crohn's disease presents with likely ileus/SBO. First encounter, chart reviewed. *SBO -2 way x ray today -PICC line and TPN -will have a CTA of abdomen and pelvis tomorrow if cont to have obstruction -may need an NG -recent CT scan demonstrated inflammation of terminal ilium and ascending colon -? Crohn #Abdominal pain -related to SBO -per GI stool studies to be sent -says Ativan has helped her the most (this was ordered) *ileitis -responsive to steroids -possibly IBD *nausea -no c/o this during my interview *underweight w a BMI of 18 *plan: TPN to start this evening, PICC ordered. Agree w getting further imaging , her pain when I evaluated her was in both lower quadrants and epigastric area. She said she had a baby girl 4 months ago and had a complication of a detached placenta that required surgery. Family is asking questions about possible lyme disease concerns. Also, there was concern of gestational diabetes. Will review her records in [facility] if available. Subjective: Ira is feeling bloated and uncomfortable. Objective: Vital Signs Temp Pulse Resp BP Pulse Ox 36.7 C 60 17 105/72 92 11/03/18 12:39 11/03/18 12:39 11/03/18 12:39 11/03/18 12:39 11/03/18 12:39 Laboratory Results 11/03/18 04:20 11/03/18 04:00 11/02/18 11/03/18 11/04/18 05:59 05:59 05:59 Intake Total 2200 2300 Balance 2200 2300 - Physical Exam Constitutional: uncomfortable, other (thin), No not in pain (only when i palpated her abdomen) Eyes: PERRL Ears, Nose, Mouth, Throat: hearing normal Cardiovascular: regular rate and rhythym, no murmur, rub, or gallop Respiratory: no respiratory distress Gastrointestinal: normoactive bowel sounds, tenderness (in epigastric area and bilateral lower quadrant areas) Skin: warm Musculoskeletal: generalized weakness Neurologic: AAOx3 Psychiatric: interacting appropriately ICD10 Worksheet Patient Problems: Problems Problem Status Onset Abdominal pain Acute Colitis Acute
[2018-11-03 13:18] LABS: PLATELET COUNT 271 10^3/uL (150-400)
[2018-11-03 13:39] LABS: INR 1.11 (0.83-1.16); PROTIME(PATIENT) 14.5 SEC (12.0-15.0)
[2018-11-03] MEDS: TPN 1 EA BAG IV SCH (22:05)
[2018-11-03] MEDS: LORazepam 2 MG/ML INJ IVP PRN (23:33)
[2018-11-04] MEDS: methylPREDNISolone SOD SUCC 40 MG/ML VIAL IVP SCH ×3 (05:45→18:30)
[2018-11-04] MEDS: LEVOTHYROXINE 25 MCG TAB PO SCH (05:50)
[2018-11-04 06:08] LABS: PLATELET COUNT 270 10^3/uL (150-400)
[2018-11-04 06:16] LABS: INR 1.06 (0.83-1.16)
[2018-11-04] MEDS: PANTOPRAZOLE SODIUM 40 MG VIAL IVP SCH ×2 (09:50→21:13)
[2018-11-04] MEDS ORDERED: D50W 25 GM/50 ML SYR IVP PRN (11:14)
[2018-11-04] MEDS ORDERED: INSULIN REGULAR, HUMAN 100 UNIT/1 ML VIAL LOW SC SCH (11:30)
[2018-11-04] MEDS: INSULIN REGULAR, HUMAN 100 UNIT/1 ML VIAL LOW SC SCH ×2 (11:34→18:30)
--- NOTE | 2018-11-04 13:10 | ASMTCMCOM ---
CM Note CM Note Notes: Pts case discussed Ana Maria Mitchell NP regarding d/c POC. Pt started TPN and had picc line placed. Pt may need an NG if situation doesn't improve. Pt is not medically stable to d/c yet. CM to follow for d/c needs. Date Signed: 11/04/2018 01:09 PM Electronically Signed By:MORTEZA Duque
--- NOTE | 2018-11-04 14:33 | HOSPPROG ---
Hospitalist Progress Note Assessment/Plan: 33 yo F w/ recent, tentative diagnosis of Crohn's disease presents with likely ileus/SBO. *SBO -2 way x ray tomorrow -PICC line and TPN -? Crohn #Abdominal pain -related to SBO -per GI stool studies to be sent -says Ativan has helped her the most (this was ordered) -pain is much improved, drinking Gatorade without difficultly *ileitis -responsive to steroids -possibly IBD *nausea -no c/o this during my interview *underweight w a BMI of 18 *high glucoses -patient had gestational diabetes -checked an A1c which was stable at 5.4 -glucoses are high due to steroids and TPN (on sliding scale) *plan: Dr Nuno and myself met nohemi Roth, her and father. Plan is to do a two way of the abdomen in the morning, see if she continues to tolerate clears , continue TPN. Colonoscopy likely on w prep. >30 minutes educating, coordinating care and discussing care w GI. Subjective: Ira is feeling better today, drank 3 gatorades and coconut water without pain. Objective: Vital Signs Temp Pulse Resp BP Pulse Ox 36.6 C 60 16 99/64 L 94 11/04/18 11:08 11/04/18 11:08 11/04/18 11:08 11/04/18 11:08 11/04/18 11:08 Laboratory Results 11/04/18 05:45 11/04/18 05:45 11/03/18 11/04/18 11/05/18 05:59 05:59 05:59 Intake Total 2300 800 Balance 2300 800 PT 14.0 SEC (12.0-15.0) 11/04/18 05:45 INR 1.06 (0.83-1.16) 11/04/18 05:45 - Physical Exam Constitutional: no apparent distress, cachectic Eyes: PERRL Ears, Nose, Mouth, Throat: hearing normal Cardiovascular: regular rate and rhythym Respiratory: no respiratory distress Gastrointestinal: normoactive bowel sounds, distension (but is less distended today) Skin: warm Musculoskeletal: full muscle strength Neurologic: AAOx3 Psychiatric: interacting appropriately ICD10 Worksheet Patient Problems: Problems Problem Status Onset Abdominal pain Acute Colitis Acute
--- NOTE | 2018-11-04 14:59 | SOAPPROG ---
SOAP Progress Note Assessment/Plan: Assessment: 1. SBO 2. Ileitis responsive to steroids- possibly IBD 3. Generalized abdominal pain 4. Nausea Plan: 1. 2 way in AM 2. TPN to continue 3. Clear today 4. Possible EGD/Colonoscopy later this week depending on clinical progress 5. MRE pending endoscopic findings. 11/03/18 12:21 11/04/18 14:57 Subjective: CC: No further nausea Having flatus Tolerating PO with gatorade Ongoing RUQ pain Objective: Vital Signs Temp Pulse Resp BP Pulse Ox 36.6 C 60 16 99/64 L 94 11/04/18 11:08 11/04/18 11:08 11/04/18 11:08 11/04/18 11:08 11/04/18 11:08 Laboratory Results 11/04/18 05:45 11/04/18 05:45 11/03/18 11/04/18 11/05/18 05:59 05:59 05:59 Intake Total 2300 800 Balance 2300 800 PT 14.0 SEC (12.0-15.0) 11/04/18 05:45 INR 1.06 (0.83-1.16) 11/04/18 05:45 Physical Exam - Physical Exam General Appearance: no apparent distress Respiratory: lungs clear Cardiac/Chest: regular rate, rhythm Abdomen: soft, distended, other (hypoactive bowel sounds with mild tenderness) ICD10 Worksheet Patient Problems: Problems Problem Status Onset Abdominal pain Acute Colitis Acute
[2018-11-04] MEDS: TPN 1 EA BAG IV SCH (21:23)
[2018-11-05] MEDS: LORazepam 2 MG/ML INJ IVP PRN ×3 (00:14→20:18)
[2018-11-05] MEDS: methylPREDNISolone SOD SUCC 40 MG/ML VIAL IVP SCH ×4 (00:14→18:33)
[2018-11-05] MEDS: INSULIN REGULAR, HUMAN 100 UNIT/1 ML VIAL LOW SC SCH ×4 (00:15→18:34)
[2018-11-05] MEDS: LEVOTHYROXINE 25 MCG TAB PO SCH (05:53)
[2018-11-05 06:33] LABS: PLATELET COUNT 254 10^3/uL (150-400)
[2018-11-05 06:46] LABS: INR 1.03 (0.83-1.16); PROTIME(PATIENT) 13.7 SEC (12.0-15.0)
[2018-11-05] MEDS: PANTOPRAZOLE SODIUM 40 MG VIAL IVP SCH ×2 (08:32→20:56)
[2018-11-05] MEDS ORDERED: PEG 3350/NA SULF,BICARB,CL/KCL (GAVILYTE-G) 4000 ML BTL PO ONE (12:42)
[2018-11-05] MEDS ORDERED: BISACODYL 10 MG SUPP PR ONE ×2 (12:42→15:30)
--- NOTE | 2018-11-05 12:46 | SOAPPROG ---
SOAP Progress Note Assessment/Plan: Assessment: 1. SBO 2. Ileitis responsive to steroids- possibly IBD 3. RLQ abdominal pain Plan: 1. Start slowly attempting golytely bowel cleanse today 2. Dulcolax supp 10mg OK once now 3. Ok to continue clears but mostly focus on golytely 4. Fleet enema tonight at 1800 5. EGD/Colonoscopy tomorrow afternoon depending on success of bowel cleanse. 11/05/18 12:44 Subjective: CC: Bowel obstruction Continues to have some flatus. No real BM. No N/V. tolerating gatorade well without increased distention or pain. Objective: Vital Signs Temp Pulse Resp BP Pulse Ox 36.6 C 61 16 103/69 94 11/05/18 12:14 11/05/18 12:14 11/05/18 12:14 11/05/18 12:14 11/05/18 12:14 Laboratory Results 11/05/18 06:10 11/05/18 06:10 11/04/18 11/05/18 11/06/18 05:59 05:59 05:59 Intake Total 800 3760 Balance 800 3760 PT 13.7 SEC (12.0-15.0) 11/05/18 06:10 INR 1.03 (0.83-1.16) 11/05/18 06:10 Physical Exam - Physical Exam General Appearance: no apparent distress EENT: normal ENT inspection Respiratory: lungs clear, normal breath sounds Cardiac/Chest: regular rate, rhythm Abdomen: soft, distended, other (Hypoactive bowel sounds) Skin: warm/dry ICD10 Worksheet Patient Problems: Problems Problem Status Onset Abdominal pain Acute Colitis Acute
[2018-11-05] MEDS: POTASSIUM Cl (KCl) 100 ML IV SCH ×2 (13:32→15:09)
--- NOTE | 2018-11-05 14:03 | HOSPPROG ---
Hospitalist Progress Note Assessment/Plan: 33 yo F w/ recent, tentative diagnosis of Crohn's disease presents with likely ileus/SBO. *SBO -2 way x ray showed partial SBO vs adynamic ileus -PICC line and TPN -? Crohn -to get EGD and colonoscopy tomorrow -has very quiet bowel sounds #Abdominal pain -related to SBO -per GI stool studies to be sent -says Ativan has helped her the most (this was ordered) -pain is much improved, *leukocytosis -secondary to steroids *ileitis -responsive to steroids -possibly IBD *nausea -no c/o this during my interview *underweight w a BMI of 18 *high glucoses -patient had gestational diabetes -checked an A1c which was stable at 5.4 -glucoses are high due to steroids and TPN (on sliding scale) *plan: colonoscopy and EGD tomorrow if she can tolerate the prep Subjective: Ira is not having pain during my evaluation. Objective: Vital Signs Temp Pulse Resp BP Pulse Ox 36.6 C 61 16 103/69 94 11/05/18 12:14 11/05/18 12:14 11/05/18 12:14 11/05/18 12:14 11/05/18 12:14 Laboratory Results 11/05/18 06:10 11/05/18 06:10 11/04/18 11/05/18 11/06/18 05:59 05:59 05:59 Intake Total 800 3760 Balance 800 3760 PT 13.7 SEC (12.0-15.0) 11/05/18 06:10 INR 1.03 (0.83-1.16) 11/05/18 06:10 - Physical Exam Constitutional: not in pain, other (thin) Eyes: PERRL Ears, Nose, Mouth, Throat: hearing normal Respiratory: no respiratory distress Gastrointestinal: distension (but not as tender today), No normoactive bowel sounds (hypoactive) Skin: warm, normal color Musculoskeletal: full muscle strength Neurologic: AAOx3 ICD10 Worksheet Patient Problems: Problems Problem Status Onset Abdominal pain Acute Colitis Acute
[2018-11-05] MEDS: ONDANSETRON 4 MG/2 ML VIAL IVP PRN (20:56)
[2018-11-05] MEDS: TPN 1 EA BAG IV SCH (20:57)
[2018-11-05] MEDS: HYDROmorphONE/DILAUDID 1 MG/ML INJ IVP PRN (21:43)
[2018-11-05] MEDS ORDERED: IOHEXOL 300 mgI/ML (OMNIPAQUE) 150 ML BTL IV ONE (22:27)
--- NOTE | 2018-11-05 22:40 | SOAPPROG ---
SOAP Progress Note Assessment/Plan: Assessment: 1. SBO 2. Ileitis responsive to steroids- possibly IBD 3. RLQ abdominal pain 4. Leukocytosis Plan: 1. NG placement 2. NPO 3. Stat CT abdomen and pelvis 4. Surgery to see for worsening symptoms of obstruction 5. CBC and lytes 11/05/18 22:41 Subjective: CC: worsening abdominal pain and distention Called by Lilo (RN) to see Ira for worsening abdominal pain. More distended early this evening with attempts at drinking bowel prep so quit. Was still having some flatus but no BM. Abdominal pain set in at about 2100. Dilaudid given and ativan which helped some. Pain is 9/10 and RLQ radiating to left side. Objective: Vital Signs Temp Pulse Resp BP Pulse Ox 36.6 C 65 18 98/57 L 94 11/05/18 19:59 11/05/18 19:59 11/05/18 19:59 11/05/18 19:59 11/05/18 19:59 Laboratory Results 11/05/18 06:10 11/05/18 06:10 11/04/18 11/05/18 11/06/18 05:59 05:59 05:59 Intake Total 800 3760 Balance 800 3760 PT 13.7 SEC (12.0-15.0) 11/05/18 06:10 INR 1.03 (0.83-1.16) 11/05/18 06:10 Physical Exam - Physical Exam General Appearance: moderate distress Respiratory: lungs clear Cardiac/Chest: regular rate, rhythm Abdomen: distended, guarding, other (Intermittent hyperactive bowel sounds. No high pitches.), No rebound Skin: warm/dry Neuro/Psych: alert, oriented x 3, other (Anxious) ICD10 Worksheet Patient Problems: Problems Problem Status Onset Abdominal pain Acute Colitis Acute
[2018-11-05 23:32] LABS: PLATELET COUNT 251 10^3/uL (150-400)
[2018-11-05] MEDS ORDERED: NS 1,000 ML IV SCH (23:40)
[2018-11-05] MEDS ORDERED: HYDROmorphONE/DILAUDID 1 MG/ML INJ IVP PRN (23:40)
[2018-11-06] MEDS: INSULIN REGULAR, HUMAN 100 UNIT/1 ML VIAL LOW SC SCH ×4 (00:44→18:59)
[2018-11-06] MEDS: LORazepam 2 MG/ML INJ IVP PRN ×3 (02:55→21:52)
[2018-11-06 06:05] LABS: PLATELET COUNT 214 10^3/uL (150-400)
[2018-11-06 06:14] LABS: INR 1.03 (0.83-1.16); PROTIME(PATIENT) 13.7 SEC (12.0-15.0)
--- NOTE | 2018-11-06 09:28 | HOSPPROG ---
Hospitalist Progress Note Assessment/Plan: 33 yo F w/ recent, tentative diagnosis of Crohn's disease presents with likely ileus/SBO. Reviewed her care w Dr Nuno this morning. Dr Disla has her on the OR schedule, unclear if she will definitely go or not. *SBO -2 way x ray showed partial SBO vs adynamic ileus -PICC line and TPN -CT scan show dilated loops, small bowel area, r sided colonic impaction -NG in place, >900 output last night -no bowel sounds noted #Abdominal pain -due to the above -pain has lifted w NG in place *leukocytosis -steroids dc -having burning, pain w urination (check a ua now) *headache and throat pain -due to NG placement -will order throat spray *ileitis -steroids dc *nausea -no c/o this during my interview *underweight w a BMI of 18 *high glucoses -patient had gestational diabetes -checked an A1c which was stable at 5.4 -glucoses are high due to steroids and TPN (on sliding scale) *plan: Family is frustrated and concerned, have assured them I will keep them updated on the plan throughout the day. >30 minutes seeing and talking w patient 's mom, . Subjective: Ira is c/o of her head pounding. Objective: Vital Signs Temp Pulse Resp BP Pulse Ox 37.1 C 88 14 113/72 94 11/06/18 08:00 11/06/18 08:00 11/06/18 08:00 11/06/18 08:00 11/06/18 08:00 Laboratory Results 11/06/18 05:35 11/06/18 05:35 11/05/18 11/06/18 11/07/18 05:59 05:59 05:59 Intake Total 3760 Output Total 900 Balance 3760 -900 PT 13.7 SEC (12.0-15.0) 11/06/18 05:35 INR 1.03 (0.83-1.16) 11/06/18 05:35 - Physical Exam Constitutional: uncomfortable, other (thin), No not in pain Cardiovascular: regular rate and rhythym Respiratory: no respiratory distress Gastrointestinal: No normoactive bowel sounds (no bowel sounds noted,nontender) Skin: warm Neurologic: AAOx3 Psychiatric: interacting appropriately ICD10 Worksheet Patient Problems: Problems Problem Status Onset Abdominal pain Acute Colitis Acute
[2018-11-06] MEDS ORDERED: HYDROmorphONE/DILAUDID 1 MG/ML INJ IVP ONE (09:36)
[2018-11-06] MEDS ORDERED: HYDROmorphONE/DILAUDID 6 MG/30 ML PCA IV PRN (09:36)
[2018-11-06] MEDS ORDERED: NALOXONE HCL 0.4 MG/ML INJ IVP PRN ×2 (09:36→15:00)
[2018-11-06] MEDS: PANTOPRAZOLE SODIUM 40 MG VIAL IVP SCH ×2 (09:49→20:36)
[2018-11-06] MEDS: POTASSIUM Cl (KCl) 100 ML IV SCH ×3 (09:54→14:15)
--- NOTE | 2018-11-06 10:47 | SOAPPROG ---
SOAP Progress Note Assessment/Plan: Assessment: 1. SBO- failed attempts at oral bowel prep and suppository therapy. NG placed last evening. 2. Ileitis un-responsive to steroids at this point- possibly IBD 3. RLQ abdominal pain 4. Leukocytosis Plan: 1. Continues to clinically demonstrate features of small bowel obstruction. 2. Plan is for exploratory laparoscopy today but family is requesting hospital transfer to [facility] for second opinion on her illness before surgery. 3. Will initiate transfer per family request 4. Patient seen and examined to day by surgery as well who are supportive of the plan. 5. Continue TPN and IVF 6. IV pain meds 7. NPO 8. NG to LIWS 9. Steroids were discontinued yesterday as it is no longer clear she has IBD ( crohn's) ileitis as the cause for her illness. 11/06/18 10:42 Subjective: CC: Abdominal pain Abdominal distention SBO Patient worse yesterday and continues to struggle with intermittent abdominal pain that is fairly severe requiring IV narcotics. 2 way today shows persistent and worsening SBO and fecalization of the small bowel. No overt colonic distention. Objective: Vital Signs Temp Pulse Resp BP Pulse Ox 37.1 C 88 14 113/72 94 11/06/18 08:00 11/06/18 08:00 11/06/18 08:00 11/06/18 08:00 11/06/18 08:00 Laboratory Results 11/06/18 05:35 11/06/18 05:35 11/05/18 11/06/18 11/07/18 05:59 05:59 05:59 Intake Total 3760 Output Total 900 Balance 3760 -900 PT 13.7 SEC (12.0-15.0) 11/06/18 05:35 INR 1.03 (0.83-1.16) 11/06/18 05:35 Physical Exam - Physical Exam General Appearance: mild distress EENT: other (NG tube to LIWS. Bilious small bowel fluid in canister.) Respiratory: lungs clear Cardiac/Chest: regular rate, rhythm, systolic murmur, No tachycardia Abdomen: soft, distended, other (Absent bowel sounds.), No guarding, No rebound , No ascites, No bruit Skin: warm/dry ICD10 Worksheet Patient Problems: Problems Problem Status Onset Abdominal pain Acute Colitis Acute
[2018-11-06] MEDS: PHENOL 177 ML THROAT SPRAY PO PRN ×3 (10:54→20:42)
--- NOTE | 2018-11-06 11:46 | SOAPPROG ---
SOAP Progress Note Assessment/Plan: Assessment: CALLED TO SEE PATIENT TONIGHT FOR INCREASING ABDOMINAL PAIN AND DISTENTION. PATIENT IS BEEN HER OFF AND ON FOR NEARLY 2 WEEKS WITH CRAMPY ABDOMINAL PAIN. SHE IS PRESENTLY UNDERGOING A GOLYTELY BOWEL PREP WHICH IS CAUSED HER SEVERE INCREASING DISCOMFORT. X-RAYS HAVE SUGGESTED SMALL-BOWEL OBSTRUCTION BUT SHE DOES HAVE A LARGE AMOUNT OF FECAL MATERIAL STILL IN HER COLON BUT IS NOT HAD A REAL BOWEL MOVEMENT FOR SEVERAL DAYS AND ONLY MINIMAL FLATUS. NG TUBE WAS JUST PLACED A DRAINING ALMOST A L OF FLUID BUT APPEARS TO BE MOSTLY GOLYTELY ALTHOUGH IT IS BILE TINGED. SHE HAS BEEN AFEBRILE AND WITH NO TACHYCARDIA OR VITAL SIGN CHANGES. HER LACTIC ACID IS NORMAL. WHITE COUNT IS QUITE ELEVATED BUT SHE HAS BEEN ON IV STEROIDS GENERAL: SHE IS AFEBRILE AND ALERT A BUT HAVING CRAMPY ABDOMINAL PAIN HEENT NONICTERIC WITH NG TUBE IN PLACE, NO ADENOPATHY CHEST CLEAR COR REGULAR RHYTHM ABDOMEN SLIGHTLY DISTENDED DIFFUSELY MILDLY TENDER BUT SOFT WITH NO REBOUND OR GUARDING AND NO OBVIOUS HERNIAS IMPRESSION: DIAGNOSIS IS STILL UNCLEAR SHE DOES NOT APPEAR TO ACTUALLY HAVE INFLAMMATORY BOWEL DISEASE SINCE SHE HAS NOT RESPONDED WELL TO STEROIDS AND HER BIOPSIES WERE AND NEGATIVE. SHE COULD HAVE SOME ADHESIONS SECONDARY TO HER PREVIOUS UTERINE ARTERY EMBOLIZATION BUT SHE HAS HAD NO PREVIOUS INTRA- ABDOMINAL SURGERY. IS PERPLEXING THAT SHE HAS NOT IMPROVED IN 2 WEEKS WITH VARIOUS TREATMENTS INCLUDING CATHARSIS, STEROIDS AND OTHER DIAGNOSTIC TESTS I WOULD RECOMMEND CONTINUED NG SUCTION AND LAPAROSCOPY IN THE A.M. IF SHE IS NOT SIGNIFICANTLY IMPROVED. IN HER PRESENT STATE I DOUBT THAT WE COULD DO ANY FURTHER DIAGNOSTIC SUCH SMALL-BOWEL FOLLOW-THROUGH OR REPEAT COLONOSCOPY. RISKS AND OPTIONS BEEN FULLY DISCUSSED AND WE WILL RECHECK IN 3 4 HR. Plan: POSSIBLE LAPAROSCOPY IN THE A.M. OR SOONER IF SHE DETERIORATES 11/06/18 11:38 Objective: Vital Signs Temp Pulse Resp BP Pulse Ox 36.8 C 85 14 118/81 H 98 11/06/18 11:28 11/06/18 11:28 11/06/18 11:28 11/06/18 11:28 11/06/18 11:28 Laboratory Results 11/06/18 05:35 11/06/18 05:35 11/05/18 11/06/18 11/07/18 05:59 05:59 05:59 Intake Total 3760 Output Total 900 Balance 3760 -900 PT 13.7 SEC (12.0-15.0) 11/06/18 05:35 INR 1.03 (0.83-1.16) 11/06/18 05:35 ICD10 Worksheet Patient Problems: Problems Problem Status Onset Abdominal pain Acute Colitis Acute
[2018-11-06] MEDS ORDERED: cefOXitin SODIUM 2 GM in NS 100 ML IV ONE (11:47)
--- NOTE | 2018-11-06 11:50 | SOAPPROG ---
CHARLES Progress Note Assessment/Plan: Assessment: CALLED TO SEE PATIENT TONIGHT FOR INCREASING ABDOMINAL PAIN AND DISTENTION. PATIENT IS BEEN HER OFF AND ON FOR NEARLY 2 WEEKS WITH CRAMPY ABDOMINAL PAIN. SHE IS PRESENTLY UNDERGOING A GOLYTELY BOWEL PREP WHICH IS CAUSED HER SEVERE INCREASING DISCOMFORT. X-RAYS HAVE SUGGESTED SMALL-BOWEL OBSTRUCTION BUT SHE DOES HAVE A LARGE AMOUNT OF FECAL MATERIAL STILL IN HER COLON BUT IS NOT HAD A REAL BOWEL MOVEMENT FOR SEVERAL DAYS AND ONLY MINIMAL FLATUS. NG TUBE WAS JUST PLACED A DRAINING ALMOST A L OF FLUID BUT APPEARS TO BE MOSTLY GOLYTELY ALTHOUGH IT IS BILE TINGED. SHE HAS BEEN AFEBRILE AND WITH NO TACHYCARDIA OR VITAL SIGN CHANGES. HER LACTIC ACID IS NORMAL. WHITE COUNT IS QUITE ELEVATED BUT SHE HAS BEEN ON IV STEROIDS GENERAL: SHE IS AFEBRILE AND ALERT A BUT HAVING CRAMPY ABDOMINAL PAIN HEENT NONICTERIC WITH NG TUBE IN PLACE, NO ADENOPATHY CHEST CLEAR COR REGULAR RHYTHM ABDOMEN SLIGHTLY DISTENDED DIFFUSELY MILDLY TENDER BUT SOFT WITH NO REBOUND OR GUARDING AND NO OBVIOUS HERNIAS IMPRESSION: DIAGNOSIS IS STILL UNCLEAR SHE DOES NOT APPEAR TO ACTUALLY HAVE INFLAMMATORY BOWEL DISEASE SINCE SHE HAS NOT RESPONDED WELL TO STEROIDS AND HER BIOPSIES WERE AND NEGATIVE. SHE COULD HAVE SOME ADHESIONS SECONDARY TO HER PREVIOUS UTERINE ARTERY EMBOLIZATION BUT SHE HAS HAD NO PREVIOUS INTRA- ABDOMINAL SURGERY. IS PERPLEXING THAT SHE HAS NOT IMPROVED IN 2 WEEKS WITH VARIOUS TREATMENTS INCLUDING CATHARSIS, STEROIDS AND OTHER DIAGNOSTIC TESTS I WOULD RECOMMEND CONTINUED NG SUCTION AND LAPAROSCOPY IN THE A.M. IF SHE IS NOT SIGNIFICANTLY IMPROVED. IN HER PRESENT STATE I DOUBT THAT WE COULD DO ANY FURTHER DIAGNOSTIC SUCH SMALL-BOWEL FOLLOW-THROUGH OR REPEAT COLONOSCOPY. RISKS AND OPTIONS BEEN FULLY DISCUSSED AND WE WILL RECHECK IN 3 4 HR. Plan: POSSIBLE LAPAROSCOPY IN THE A.M. OR SOONER IF SHE DETERIORATES 11/06/18 11:38 11/06/18 11:46 PATIENT SOMEWHAT BETTER OVERNIGHT ON NG SUCTION BUT MINIMAL OUTPUT FROM THE NG. SHE REMAINS AFEBRILE WITH STABLE VITAL SIGNS ABDOMEN IS MUCH SOFTER AND LESS TENDER WITH ACTIVE BOWEL SOUNDS. 2 WAY ABDOMEN X-RAY IS STILL PENDING. THE PLAN AT THIS POINT IS TO STILL CONSIDER LAPAROSCOPY DEPENDING ON THE RESULTS OF THE 2 WAY ABDOMEN. RISKS AND OPTIONS OF AGAIN BEEN FULLY DISCUSSED WITH THE PATIENT AND HER 11/06/18 11:48 PATIENT'S CONDITION IS NOT CHANGED MUCH. STILL NO FLATUS OR BOWEL MOVEMENTS BUT LESS PAIN AND ACTIVE BOWEL SOUNDS. RISKS AND OPTIONS BEEN FULLY DISCUSSED. HOWEVER SHE WISHES TO BE TRANSFERRED TO THE [facility] SHE KNOWS A SURGEON THERE AND THAT IS IN THE PROCESS OF BEING FACILITATED. SHE WILL NEED A COPY OF HER IMAGING STUDIES Objective: Vital Signs Temp Pulse Resp BP Pulse Ox 36.8 C 85 14 118/81 H 98 11/06/18 11:28 11/06/18 11:28 11/06/18 11:28 11/06/18 11:28 11/06/18 11:28 Laboratory Results 11/06/18 05:35 11/06/18 05:35 11/05/18 11/06/18 11/07/18 05:59 05:59 05:59 Intake Total 3760 Output Total 900 Balance 3760 -900 PT 13.7 SEC (12.0-15.0) 11/06/18 05:35 INR 1.03 (0.83-1.16) 11/06/18 05:35 ICD10 Worksheet Patient Problems: Problems Problem Status Onset Abdominal pain Acute Colitis Acute
--- NOTE | 2018-11-06 11:52 | ASMTCMCOM ---
CM Note CM Note Notes: Pts case discussed w/ Ana Maria Mitchell NP. Family initially wanted her transferred to [facility] but then changed their minds. Pt is being taken to the OR today. If things don't improve pt may be transferred to [facility] in the future. Needs are TBD. CM to follow. Plan: TBD Date Signed: 11/06/2018 11:51 AM Electronically Signed By:MORTEZA Duque
[2018-11-06] MEDS ORDERED: LR 1,000 ML IV ONE (12:32)
[2018-11-06] MEDS ORDERED: BUPIVACAINE 0.5% 30 ML SDV ONE (13:23)
[2018-11-06] MEDS ORDERED: MIDAZOLAM 2 MG/2 ML VIAL IVP ONE (13:26)
--- NOTE | 2018-11-06 13:26 | PDANEPAE ---
ANE History of Present Illness 33 YO FOR LAPAROSCOPY FOR SBO ANE Past Medical History - Cardiovascular History Hx Hypertension: No Hx Arrhythmias: No Hx Chest Pain: No Hx Coronary Artery / Peripheral Vascular Disease: No Hx CHF / Valvular Disease: No Hx Palpitations: Yes - Pulmonary History Hx COPD: No Hx Asthma/Reactive Airway Disease: No Hx Recent Upper Respiratory Infection: No Hx Oxygen in Use at Home: No Hx Sleep Apnea: No - Endocrine History Hx Diabetes: No - Chronic Pain History Chronic Pain: Yes ANE Review of Systems Review of Systems: - Exercise capacity METS (RN): 4 METS ANE Patient History - Allergies Allergies/Adverse Reactions: No Known Allergies Allergy (Verified 10/31/18 21:02) - Home Medications Home medications: home medication list seen and reviewed Home Medications: Levothyroxine [Synthroid 25 mcg (*)] 25 mcg PO DAILY06 10/23/18 [Last Taken ] Mbx Soln;Maalox/Diphen/Lido [Maalox/Diphenhydramine/Lido] 15 ml PO QID PRN 11/01 [Last Taken 10/31/18 2 DOSES] Pantoprazole Sodium [Protonix 40mg (*)] 40 mg PO BID 11/01/18 [Last Taken ] - Anes Hx Anes Hx: no prior problems - Smoking Hx Smoking Status: Never smoked ANE Labs/Vital Signs - Labs Result Diagrams: 11/06/18 05:35 11/06/18 05:35 - Vital Signs Blood Pressure: 120/73 Heart Rate: 84 Respiratory Rate: 14 O2 Sat (%): 100 Height: 5 ft 6 in Weight: 48.1 kg ANE Physical Exam - Airway Neck exam: FROM Mallampati Score: Class 2 Mouth exam: normal dental/mouth exam - Pulmonary Pulmonary: no respiratory distress - Cardiovascular Cardiovascular: regular rate and rhythym - ASA Status ASA Status: II ANE Anesthesia Plan Anesthesia Plan: general endotracheal anesthesia
[2018-11-06] MEDS ORDERED: MIDAZOLAM 2 MG/2 ML VIAL ONE (13:28)
[2018-11-06] MEDS ORDERED: REMIFENTANIL HCL 1 MG VIAL ONE (13:29)
[2018-11-06] MEDS ORDERED: fentaNYL 100 MCG/2 ML INJ ONE ×2 (13:30)
[2018-11-06] MEDS ORDERED: PROPOFOL/EMULSION 500 MG/50 ML BOTTLE IV ONE (13:30)
[2018-11-06] MEDS ORDERED: ROCURONIUM 50 MG/5 ML VIAL ONE (13:32)
[2018-11-06] MEDS ORDERED: ONDANSETRON 4 MG/2 ML VIAL ONE (14:38)
[2018-11-06] MEDS ORDERED: SUGAMMADEX SODIUM 200 MG/2 ML VIAL IVP ONE (14:38)
[2018-11-06] MEDS ORDERED: fentaNYL 100 MCG/2 ML INJ IVP PRN (15:00)
[2018-11-06] MEDS ORDERED: ONDANSETRON 4 MG/2 ML VIAL IVP PRN (15:00)
--- NOTE | 2018-11-06 16:10 | POSTOPPROG ---
Post Op Note Date of Operation: 11/06/18 Surgeon: Agustin Disla Anesthesiologist: DANTE Anesthesia: GET(General Endotracheal) Pre-op Diagnosis: POSSIBLE SBO Post-op Diagnosis: OBSTIPATION Indication: CONTINUED PAIN Procedure: DIAGNOSTIC LAPAROSCOPY Findings: DILATED SMALL BOWEL SECONDARY TO FECAL IMPACTION IN THE TERMINAL ILEUM , NO Inf/Abcess present in the surg proc area at time of surgery?: No Depth: Organ Space EBL: Minimal Complications: NONE Specimen(s): NONE
[2018-11-06] MEDS ORDERED: D5W 1/2 NS W/ 20 KCl/L 1,000 ML IV SCH (16:15)
[2018-11-06] MEDS: TPN 1 EA BAG IV SCH (21:52)
[2018-11-07] MEDS: INSULIN REGULAR, HUMAN 100 UNIT/1 ML VIAL LOW SC SCH ×4 (00:11→18:33)
[2018-11-07] MEDS: LORazepam 2 MG/ML INJ IVP PRN (02:16)
[2018-11-07] MEDS: NS 1,000 ML IV SCH ×2 (02:40→20:35)
[2018-11-07 02:48] LABS: PLATELET COUNT 177 10^3/uL (150-400)
[2018-11-07] MEDS: LEVOTHYROXINE 25 MCG TAB PO SCH (03:07)
[2018-11-07] MEDS: PANTOPRAZOLE SODIUM 40 MG VIAL IVP SCH ×2 (09:41→20:53)
[2018-11-07] MEDS: PHENOL 177 ML THROAT SPRAY PO PRN ×4 (09:56→20:47)
[2018-11-07] MEDS ORDERED: BISACODYL 10 MG SUPP PR ONE (10:05)
[2018-11-07] MEDS ORDERED: METHYLNALTREXONE BROMIDE 12 MG/0.6 ML INJ SC ONE (10:05)
--- NOTE | 2018-11-07 10:05 | SOAPPROG ---
SOAP Progress Note Assessment/Plan: Assessment/plan: 33 y/o F with 2 week history of abdominal pain, n/v, and SBO S/p Exploratory laparoscopy POD #1 Found constipation and fecal impaction at terminal ileum. Pt in radiology. Per , pt tolerated ng tube clamp all night. Not passing gas or having BMs yet. Ok to sip clears. Will plan on taking ng tube out later today. Dulcolax suppository + Relastor 11/07/18 10:01 Objective: Vital Signs Temp Pulse Resp BP Pulse Ox 37.3 C 81 14 104/57 L 99 11/07/18 08:00 11/07/18 08:00 11/07/18 08:00 11/07/18 08:00 11/07/18 08:00 Laboratory Results 11/07/18 02:17 11/07/18 02:17 11/06/18 11/07/18 11/08/18 05:59 05:59 05:59 Intake Total 2858 Output Total 900 110 Balance -900 2748 PT 13.7 SEC (12.0-15.0) 11/06/18 05:35 INR 1.03 (0.83-1.16) 11/06/18 05:35 ICD10 Worksheet Patient Problems: Problems Problem Status Onset Abdominal pain Acute Colitis Acute
--- NOTE | 2018-11-07 10:58 | HOSPPROG ---
Hospitalist Progress Note Assessment/Plan: 33 yo F w/ recent, tentative diagnosis of Crohn's disease presents with likely ileus/SBO. Reviewed her care w Dr Nuno this morning. Dr Disla has her on the OR schedule, unclear if she will definitely go or not. *SBO -2 way x ray showed partial SBO vs adynamic ileus -PICC line and TPN -OR yesterday w Dr Disla, s/p exp Lap-showed fecal impaction at terminal ileum ( suppository and Relistor ordered by surgery) #Abdominal pain -pain is better #left breast mastitis -low grade fever, feeling poorly -will start Cefazolin (she has a SBO)-when eating can change to oral -cold compresses *leukocytosis -due to mastitis and possible UTI -having burning, pain w urination (check a ua now) *headache and throat pain -due to NG placement -throat spray (thoat pain better) -on going headache *ileitis -steroids dc *nausea -no c/o this during my interview *Severe protein calorie malnutrition w a BMI of 17 -TPN *high glucoses -patient had gestational diabetes -checked an A1c which was stable at 5.4 *plan: increase fluids to 125 ml/ hour, start antibiotics, added tylenol suppository, encouraged Ira to get oob today Subjective: Ira is feeling poorly, tired. Has malaise Objective: Vital Signs Temp Pulse Resp BP Pulse Ox 37.5 C 88 16 111/66 93 11/07/18 10:42 11/07/18 10:42 11/07/18 10:42 11/07/18 10:42 11/07/18 10:42 Laboratory Results 11/07/18 02:17 11/07/18 02:17 11/06/18 11/07/18 11/08/18 05:59 05:59 05:59 Intake Total 2858 Output Total 900 110 Balance -900 2748 PT 13.7 SEC (12.0-15.0) 11/06/18 05:35 INR 1.03 (0.83-1.16) 11/06/18 05:35 - Physical Exam Constitutional: uncomfortable, other (thin) Eyes: PERRL Ears, Nose, Mouth, Throat: hearing normal Cardiovascular: regular rate and rhythym, No tachycardia Respiratory: no respiratory distress Gastrointestinal: soft, non-tender abdomen, No normoactive bowel sounds (very few bowel sounds noted) Skin: warm Musculoskeletal: generalized weakness Neurologic: AAOx3 Psychiatric: interacting appropriately ICD10 Worksheet Patient Problems: Problems Problem Status Onset Abdominal pain Acute Colitis Acute
[2018-11-07] MEDS ORDERED: ACETAMINOPHEN 650 MG SUPP PR PRN (11:55)
--- NOTE | 2018-11-07 15:52 | SOAPPROG ---
SOAP Progress Note Assessment/Plan: Assessment: 1. SBO- 2. Fecal impaction at TI on surgical exploration yesterday 3. RLQ abdominal pain 4. Leukocytosis Plan: 1. Gastograffin enema to help mobilize stool in colon and distal ileum 2. Clamped NG but I would leave it in for now 3. CBC in AM 4. Will follow. 11/07/18 15:42 Subjective: CC: Less abdominal pain overnight. NG remains clamped. No BM Surgery showed fecal impaction at TI as cause of obstruction. Objective: Vital Signs Temp Pulse Resp BP Pulse Ox 36.9 C 80 16 105/62 93 11/07/18 15:15 11/07/18 15:15 11/07/18 15:15 11/07/18 15:15 11/07/18 15:15 Laboratory Results 11/07/18 02:17 11/07/18 02:17 11/06/18 11/07/18 11/08/18 05:59 05:59 05:59 Intake Total 2858 Output Total 900 110 Balance -900 2748 PT 13.7 SEC (12.0-15.0) 11/06/18 05:35 INR 1.03 (0.83-1.16) 11/06/18 05:35 Physical Exam - Physical Exam General Appearance: no apparent distress EENT: other (NG tube clamped) Respiratory: lungs clear Cardiac/Chest: regular rate, rhythm Abdomen: non-tender, soft, other (Mild central distention. Bowel sounds present) , No guarding, No rebound ICD10 Worksheet Patient Problems: Problems Problem Status Onset Abdominal pain Acute Colitis Acute
[2018-11-07] MEDS ORDERED: KETOROLAC 30 MG/1 ML SDV IVP ONE (17:22)
[2018-11-07] MEDS: KETOROLAC 15 MG/1 ML SDV IVP SCH ×2 (18:37→23:36)
[2018-11-07] MEDS: TPN 1 EA BAG IV SCH (23:37)
[2018-11-07] MEDS: LACTULOSE 20 GM/30 ML UDCUP PO SCH (23:49)
[2018-11-08] MEDS: INSULIN REGULAR, HUMAN 100 UNIT/1 ML VIAL LOW SC SCH ×4 (02:50→19:55)
[2018-11-08] MEDS: KETOROLAC 15 MG/1 ML SDV IVP SCH ×4 (05:53→23:42)
[2018-11-08] MEDS: LEVOTHYROXINE 25 MCG TAB PO SCH (05:53)
[2018-11-08] MEDS: PANTOPRAZOLE SODIUM 40 MG VIAL IVP SCH ×2 (09:27→20:57)
[2018-11-08] MEDS: LACTULOSE 20 GM/30 ML UDCUP PO SCH (09:27)
[2018-11-08] MEDS ORDERED: MAGNESIUM HYDROXIDE 30 ML UDCUP PO PRN (10:01)
[2018-11-08] MEDS ORDERED: POLYETHYLENE GLYCOL 3350 17 GM PKT PO PRN (10:01)
[2018-11-08] MEDS ORDERED: BISACODYL 10 MG SUPP PR PRN (10:01)
[2018-11-08] MEDS: NS 1,000 ML IV SCH (10:49)
--- NOTE | 2018-11-08 11:12 | SOAPPROG ---
SOAP Progress Note Assessment/Plan: Assessment/Plan: 33 Y F initially thought to have Crohn's but now that has been in question. More likely some kind of enteritis, etiology unclear. +severe constipation. s/p ex laparoscopy with findings of small bowel dilated 2/2 fecal impaction at ileum. POD#1. Seen and examined with Dr. West. Appreciate GI and hospitalist input. Did well with gastrograffin enema. Getting lactulose. Added bowel protocol. Patient interested in a fleets enema today. OOB, ambulate. Routine post op care. D/c NG later today if no nausea or vomiting--it has been clamped >24 hours. S: no nausea. passing some gas. O: alert, nad mmm, ng in place, clamped ctab anteriorly rrr abd softly distended and appropriately ttp, inc cdi, +BS 11/08/18 11:12 Objective: Vital Signs Temp Pulse Resp BP Pulse Ox 36.3 C 61 16 109/70 94 11/08/18 08:00 11/08/18 08:00 11/08/18 08:00 11/08/18 08:00 11/08/18 08:00 Laboratory Results 11/07/18 02:17 11/07/18 02:17 11/07/18 11/08/18 11/09/18 05:59 05:59 05:59 Intake Total 2858 2851 Output Total 110 300 Balance 2748 2551 PT 13.7 SEC (12.0-15.0) 11/06/18 05:35 INR 1.03 (0.83-1.16) 11/06/18 05:35 ICD10 Worksheet Patient Problems: Problems Problem Status Onset Abdominal pain Acute Colitis Acute
[2018-11-08] MEDS ORDERED: POLYETHYLENE GLYCOL 3350 17 GM PKT TUBE PRN (12:39)
--- NOTE | 2018-11-08 14:48 | HOSPPROG ---
Hospitalist Progress Note Assessment/Plan: 33 yo F w/ complicated recent medical history resulting in 2 recent hospital admits and 1 ER visit for abd pain/n/v and sxs suggestive of SBO as well as colitis/enteritis on imaging and continued evidence of constipation and fecal impaction at terminal ileum # SBO versus ileus: imaging c/w either partial sbo or ileus and patient with sxs concerning for obstruction. Evidence of colitis/enteritis on repeat imaging and colonoscopy notable for terminal ileum inflammation but bx not c/w Crohn's. Ex lap unrevealing for adhesions, internal hernia or mass but fecal impaction at terminal ileum noted and presumed to be etiology. NG in place but clamped x 24 hours without recurrent n/v--likely can dc. Had gastrograffin enema yesterday with good output, fleets today with minimal stool. Has had CT abd x 3 all showing persistent small bowel dilation and fecalization of TI. Appreciate GI/gen surg input. Family very upset and feel that there need to be more doctors /specialists involved, more people looking into her care and would like transfer to [facility]. # enteritis/colitis: as above, noted both on imaging and on colonoscopy terminal ileum inflammation noted and fluid filled small bowel with extensive constipation noted. Was initially thought to be Crohn's but biopsy results not c /w that. Apparently patient initially responded to high dose steroids but then failed to respond to home oral steroids. Per GI, no plan for continued steroids at this point but likely patient needs repeat colonoscopy and EGD for further evaluation but given plans to transfer to [facility] that is deferred for now--brother states that there is a plan to scope her small bowel at [facility]. # left breast mastitis: on cefazolin for now, improving # gestational diabetes: continues on SSI # malnutrition: with BMI of 17 # dispo: IP status, patient requests transfer to [facility]. She has been accepted there however they are currently critically full and are uncertain when they will be able to accomodate her transfer, family aware, when bed available will transfer to [facility]. > 60 min spent in care of this patient including discussion with GI/general surgery and answering questions of family, extended direct patient care time spent with patient and family answering questions from 2pm-245pm Subjective: no significant overnight events, enema yesterday with some stool output, today with fleets only minimal output Objective: Vital Signs Temp Pulse Resp BP Pulse Ox 36.6 C 74 12 105/69 93 11/08/18 12:00 11/08/18 12:00 11/08/18 12:00 11/08/18 12:00 11/08/18 12:00 Laboratory Results 11/07/18 02:17 11/07/18 02:17 11/07/18 11/08/18 11/09/18 05:59 05:59 05:59 Intake Total 2858 2851 Output Total 110 300 Balance 2748 2551 PT 13.7 SEC (12.0-15.0) 11/06/18 05:35 INR 1.03 (0.83-1.16) 11/06/18 05:35 Constitutional: uncomfortable, other (thin) Eyes: PERRL Ears, Nose, Mouth, Throat: hearing normal Cardiovascular: regular rate and rhythym, No tachycardia Respiratory: no respiratory distress Gastrointestinal: soft, non-tender abdomen, No normoactive bowel sounds (very few bowel sounds noted) Skin: warm Musculoskeletal: generalized weakness Neurologic: AAOx3 Psychiatric: interacting appropriately ICD10 Worksheet Patient Problems: Problems Problem Status Onset Abdominal pain Acute Colitis Acute
--- NOTE | 2018-11-08 15:18 | SOAPPROG ---
SOAP Progress Note Assessment/Plan: Assessment: Ira Musa is a 33 year old female post 3 months ( complicated by retained placenta and need for D&C uterine are ablation) now in and out of the hospital the last 3 weeks with abdominal pain, bloating and constipation from a partial ileal obstruction vs pseudo-obstruction of uncertain etiology. This is my first meeting with the patient today. Imaging initially revealed an enteritis/colitis picture. The point of potential obstruction appears to be a terminal ileum area. Thus far the evaluation has included a colonoscopy (2018) revealing erythematous ileum and right colon with non diagnostic biopsies. Steroids did not help her pain or bloating. An exploratory laparoscopy on 11/06/2018 revealed normal small bowel and colon just retained stool in the ileum. A gastrograffin enema produced a large bowel movement. Does not appear to be Crohn's disease. There are no bowel adhesions, endometriosis or other concerning anatomical problems. Spoke with surgery and a full thickness biopsy was NOT done. Likely having some post operative ileus today as well. Plan: 1. NG Miralax 17 grams/8 oz of water TID 2. D/C Lactulose as can cause more bloating 3. Continue TPN given protein calorie malnutrition 4. Patient requested transfer to the [facility] today - have informed her admitting team 5. tTG IgA, Total IgA sent today 6. Recommend bidirectional endoscopy for a second look if able to prep 7. Will continue to follow tomorrow, consider further work up for motility disorder caused by scleroderma, SLE Eli Nava MD Subjective: bloated, miserable, upset, wanting transfer to [facility], no flatus since bowel movement yesterday Objective: Vital Signs Temp Pulse Resp BP Pulse Ox 36.6 C 74 12 105/69 93 11/08/18 12:00 11/08/18 12:00 11/08/18 12:00 11/08/18 12:00 11/08/18 12:00 Laboratory Results 11/07/18 02:17 11/07/18 02:17 11/07/18 11/08/18 11/09/18 05:59 05:59 05:59 Intake Total 2858 2851 Output Total 110 300 Balance 2748 2551 PT 13.7 SEC (12.0-15.0) 11/06/18 05:35 INR 1.03 (0.83-1.16) 11/06/18 05:35 Physical Exam - Physical Exam General Appearance: alert, no apparent distress, anxiety, thin Respiratory: chest non-tender, lungs clear Abdomen: soft, other (bloated, minimal bowel sounds, incision sites c/d/i) Lymphatic: no adenopathy Neuro/Psych: alert, oriented x 3 ICD10 Worksheet Patient Problems: Problems Problem Status Onset Abdominal pain Acute Colitis Acute
[2018-11-08] MEDS: HYDROmorphONE/DILAUDID 1 MG/ML INJ IVP PRN (16:36)
--- NOTE | 2018-11-08 17:39 | ASMTCMCOM ---
CM Note CM Note Notes: Spoke w/MD, pt and family are requesting transfer to [facility]. MD spoke to MD at [facility], unfortunately they have no beds and may not have any tomorrow. Family is aware, signed EMTALA is in the pt's chart if she were to get transferred sonia leslie RN notified. DC Plan: Transfer to [facility] Date Signed: 11/08/2018 05:38 PM Electronically Signed By:Bailey Holman RN
[2018-11-08] MEDS ORDERED: LORazepam 2 MG/ML INJ IVP PRN (17:59)
[2018-11-08] MEDS: ACETAMINOPHEN 325 MG TAB PO PRN (20:56)
[2018-11-08] MEDS: SENNOSIDES/DOCUSATE SODIUM TAB PO SCH (21:05)
[2018-11-08] MEDS: TPN 1 EA BAG IV SCH (21:57)
[2018-11-09] MEDS: INSULIN REGULAR, HUMAN 100 UNIT/1 ML VIAL LOW SC SCH ×4 (00:44→18:24)
[2018-11-09] MEDS: HYDROmorphONE/DILAUDID 1 MG/ML INJ IVP PRN ×3 (01:00→20:40)
[2018-11-09] MEDS: NS 1,000 ML IV SCH (01:21)
[2018-11-09] MEDS: KETOROLAC 15 MG/1 ML SDV IVP SCH ×4 (05:29→22:48)
[2018-11-09] MEDS: LEVOTHYROXINE 25 MCG TAB PO SCH (05:31)
[2018-11-09 06:24] LABS: PLATELET COUNT 146 10^3/uL (150-400)
[2018-11-09] MEDS: SENNOSIDES/DOCUSATE SODIUM TAB PO SCH ×2 (08:50→22:16)
[2018-11-09] MEDS: PANTOPRAZOLE SODIUM 40 MG VIAL IVP SCH ×2 (08:54→20:35)
--- NOTE | 2018-11-09 11:43 | SOAPPROG ---
SOAP Progress Note Assessment/Plan: Assessment/Plan: 33 Y F initially thought to have Crohn's but now that has been in question. More likely some kind of enteritis, etiology unclear. +severe constipation. s/p ex laparoscopy with findings of small bowel dilated 2/2 fecal impaction at ileum. POD#2. Seen with GI. Appreciate their comprehensive workup and plan. Wounds ok. Continue TPN. NG removed. Routine post op care. Adding ambien, simethicone, and bentyl. S: crampy abdominal pain. keeping her up at night. very tired. no n/v. +stools c enemas. tolerating miralax. O: alert, nad mmm ctab anteriorly rrr abd softly distended and appropriately ttp, inc cdi, hypoactive BS 11/09/18 11:41 Objective: Vital Signs Temp Pulse Resp BP Pulse Ox 36.8 C 84 14 101/63 97 11/09/18 11:23 11/09/18 11:23 11/09/18 11:23 11/09/18 11:23 11/09/18 11:23 Microbiology 11/08/18 21:15 Respiratory Panel (PCR) - Final Nasal, Sinus - Anaerobic Tube/Swab No Organism Detected By Pcr Laboratory Results 11/09/18 06:10 11/07/18 02:17 11/08/18 11/09/18 11/10/18 05:59 05:59 05:59 Intake Total 2851 1586 Output Total 300 Balance 2551 1586 PT 13.7 SEC (12.0-15.0) 11/06/18 05:35 INR 1.03 (0.83-1.16) 11/06/18 05:35 ICD10 Worksheet Patient Problems: Problems Problem Status Onset Abdominal pain Acute Colitis Acute
--- NOTE | 2018-11-09 12:27 | SOAPPROG ---
SOAP Progress Note Assessment/Plan: Assessment: Ira Musa is a 33 year old female post 4 months ( complicated by retained placenta and need for D&C uterine are ablation) now in and out of the hospital the last 3 weeks with abdominal pain, bloating, constipation from a partial distal ileal obstruction syndrome. Initially this was thought to be Crohn's disease though biopsies have been nondiagnostic. Endoscopic images of the ileum do appear to be erythematous appearing. Laparoscopic view of the bowel appears normal. The etiology of this ileitis and partial obstructive symptoms are uncertain. Currently not obstructed, just not passing flatus well. NG out. Today we discussed symptomatic management with Miralax, Simethicone and Dicyclomine. Patient requesting [facility] transfer and is on a wait list. Plan: 0. Clear liquid diet, though continue TPN 1. Miralax 17 gram/8 oz TID 2. Dicyclomine 20 mg TID 3. Simethicone 80 mg TID 4. Discussed sending labs for SLE, Scleroderma, Cystic fibrosis genetics - patient had autoimmune work up previously and would like me to review first 5. Recommend bidirectional endoscopy for a second look if able to prep well 6. Recommend CTE or MRE in the future as well 7. Will continue to follow while still at [facility] Eli Nava MD 11/09/18 12:29 Subjective: Complaining of continued bloating and intermittent cramping and inability to sleep she is chilling and is up and walking she passed a little bit of flatus and additionally had a very small bowel movement after an enema yesterday, requested NG out last night and has not had any further nausea or vomiting Objective: Vital Signs Temp Pulse Resp BP Pulse Ox 36.8 C 84 14 101/63 97 11/09/18 11:23 11/09/18 11:23 11/09/18 11:23 11/09/18 11:23 11/09/18 11:23 Microbiology 11/08/18 21:15 Respiratory Panel (PCR) - Final Nasal, Sinus - Anaerobic Tube/Swab No Organism Detected By Pcr Laboratory Results 11/09/18 06:10 11/08/18 11/09/18 11/10/18 05:59 05:59 05:59 Intake Total 2851 1586 Output Total 300 Balance 2551 1586 PT 13.7 SEC (12.0-15.0) 11/06/18 05:35 INR 1.03 (0.83-1.16) 11/06/18 05:35 Physical Exam - Physical Exam General Appearance: alert, anxiety Respiratory: lungs clear, normal breath sounds Cardiac/Chest: regular rate, rhythm Abdomen: other (Distended, minimal bowel sounds, soft, surgical sites appear clean dry and intact as well as) Skin: normal color Neuro/Psych: no motor/sensory deficits, alert, normal mood/affect ICD10 Worksheet Patient Problems: Problems Problem Status Onset Abdominal pain Acute Colitis Acute
--- NOTE | 2018-11-09 14:03 | HOSPPROG ---
Hospitalist Progress Note Assessment/Plan: 33 yo F w/ complicated recent medical history resulting in 2 recent hospital admits and 1 ER visit for abd pain/n/v and sxs suggestive of SBO as well as colitis/enteritis on imaging and continued evidence of constipation and fecal impaction at terminal ileum # SBO versus ileus: imaging c/w either partial sbo or ileus and patient with sxs concerning for obstruction that are now improving though patient continues to be distended and not passing gas or having BM. Patient now tolerating clear liquids, NGT out. Has been started on dicyclomine and miralax per GI. Plan is for egd and repeat colonoscopy once patient able to be prepped. Consideration for deep endoscopy at [facility] upon transfer. # enteritis/colitis: as above, noted both on imaging and on colonoscopy terminal ileum inflammation noted and fluid filled small bowel with extensive constipation noted. Was initially thought to be Crohn's but biopsy results not c /w that. Apparently patient initially responded to high dose steroids but then failed to respond to home oral steroids. As above # left breast mastitis: on cefazolin for now, improving # gestational diabetes: continues on SSI # malnutrition: with BMI of 17, 15 pound weight loss due to above # dispo: IP status, patient requests transfer to [facility]. She has been accepted there however they are currently critically full and are uncertain when they will be able to accomodate her transfer, family aware, when bed available will transfer to [facility]. Care plan reviewed with CM, patients father present at bedside. Subjective: no significant overnight events, patient notes that she has been tolerating clear liquids today, she has less abdominal pain Objective: Vital Signs Temp Pulse Resp BP Pulse Ox 36.8 C 84 14 101/63 97 11/09/18 11:23 11/09/18 11:23 11/09/18 11:23 11/09/18 11:23 11/09/18 11:23 Microbiology 11/08/18 21:15 Respiratory Panel (PCR) - Final Nasal, Sinus - Anaerobic Tube/Swab No Organism Detected By Pcr Laboratory Results 11/09/18 06:10 11/07/18 02:17 11/08/18 11/09/18 11/10/18 05:59 05:59 05:59 Intake Total 2851 1586 Output Total 300 Balance 2551 1586 PT 13.7 SEC (12.0-15.0) 11/06/18 05:35 INR 1.03 (0.83-1.16) 11/06/18 05:35 awake alert nad anicteric op clear rrr no mrg abd distended, dec bs no cce warm dry well perfused oriented appropriate - Time Spent With Patient Time Spent with Patient: greater than 35 minutes Time Spent with Patient: Greater than 35 minutes spent on this patients care, greater than 50% of time spent counseling, educating, and coordinating care regarding the above mentioned plan. ICD10 Worksheet Patient Problems: Problems Problem Status Onset Colitis Acute Abdominal pain Acute
--- NOTE | 2018-11-09 15:29 | ASMTCMCOM ---
CM Note CM Note Notes: Reviewed chart, spoke with Dr. Anthony regarding discharge plan of care, pt's progress. Per Dr. Anthony, pt continues to request [facility]. Call placed to [facility] ; spoke with Violeta on the doc line. Per Violeta, the pt remains on the admission board, but the facility is currently full and is only able to accept trauma and critical pts over elective transfers at this time. Violeta also reports that the doctors are waiting on Utilization Review to verify the pt's insurance benefits for transfer of care and transportation. Violeta anticipates they may be able to accept the pt on Saturday, but cannot guarantee a bed. CM and floor phone numbers provided. [facility] to provide an update when one is available. Update provided to Dr. Anthony. Met with pt, pt's and pt's father. Update provided, questions answered. Pt's father requesting pt's transfer be changed from elective to medically necessary given pt's need for a deep endoscopy (a procedure which cannot be performed at [facility]). Offered to call [facility] to request change, father declined. Father stated he will speak with Eli Nava MD on Sat11/10/18 to further discuss. CM offered to try another facility/hospital for placement. Pt and family continue to request [facility]. Update provided to Dr. Anthony; Dr. Anthony to speak with Dr. Nava regarding necessity of transfer. CM contact information provided. Encouraged pt and family to reach out with any further issues or concerns. CM will continue to follow. Discharge Plan: Likely [facility] transfer Date Signed: 11/09/2018 03:28 PM Electronically Signed By:Lara Rajan RN
[2018-11-09] MEDS: ONDANSETRON 4 MG/2 ML VIAL IVP PRN ×2 (15:49→20:35)
[2018-11-09] MEDS: DICYCLOMINE 20 MG TAB PO SCH ×2 (15:50→22:16)
[2018-11-09] MEDS: SIMETHICONE 80 MG TAB CHEW PO SCH ×2 (15:50→22:16)
[2018-11-09] MEDS: TPN 1 EA BAG IV SCH (21:53)
[2018-11-09] MEDS: ZOLPIDEM TARTRATE 5 MG TAB PO PRN (22:48)
[2018-11-10] MEDS: INSULIN REGULAR, HUMAN 100 UNIT/1 ML VIAL LOW SC SCH ×4 (00:43→19:10)
[2018-11-10] MEDS: LORazepam 2 MG/ML INJ IVP PRN ×2 (03:44→22:10)
[2018-11-10] MEDS: ACETAMINOPHEN 325 MG TAB PO PRN (03:47)
[2018-11-10] MEDS ORDERED: NS BOLUS 1000 ML IV ONE (04:30)
[2018-11-10] MEDS: KETOROLAC 15 MG/1 ML SDV IVP SCH ×3 (05:53→18:21)
[2018-11-10] MEDS ORDERED: NS 1,000 ML IV ONE (06:09)
[2018-11-10 06:46] LABS: PLATELET COUNT 140 10^3/uL (150-400)
[2018-11-10 06:48] LABS: INR 1.37 (0.83-1.16)
--- NOTE | 2018-11-10 08:15 | SOAPPROG ---
SOAP Progress Note Assessment/Plan: Assessment/plan: 33 y/o F with 2 week history of abdominal pain, n/v, and SBO S/p Exploratory laparoscopy POD #4 Found constipation and fecal impaction at terminal ileum. Continue TPN SBFT ordered. Pt prefers to have test done tomorrow. Will discuss with GI. Appreciate extensive GI workup. S: Feeling much better. Abdominal cramping improved with bentyl. Has had multiple BMs. Tolerating clears. O: Alert Afebrile VSS RRR No increased WOB Abdomen: soft, nontender, mildly distended, +BS, incision sites cdi 11/10/18 08:12 Objective: Vital Signs Temp Pulse Resp BP Pulse Ox 36.6 C 110 H 16 81/48 L 92 11/10/18 05:56 11/10/18 03:43 11/10/18 03:43 11/10/18 05:56 11/10/18 03:43 Microbiology 11/08/18 21:15 Respiratory Panel (PCR) - Final Nasal, Sinus - Anaerobic Tube/Swab No Organism Detected By Pcr Laboratory Results 11/10/18 06:15 11/10/18 06:15 11/09/18 11/10/18 11/11/18 05:59 05:59 05:59 Intake Total 1586 600 Output Total 600 Balance 1586 0 PT 17.0 SEC (12.0-15.0) H 11/10/18 06:15 INR 1.37 (0.83-1.16) H 11/10/18 06:15 ICD10 Worksheet Patient Problems: Problems Problem Status Onset Abdominal pain Acute Colitis Acute
[2018-11-10] MEDS: NS 1,000 ML IV SCH (08:27)
[2018-11-10] MEDS: LEVOTHYROXINE 25 MCG TAB PO SCH (08:29)
[2018-11-10] MEDS: DICYCLOMINE 20 MG TAB PO SCH ×4 (08:29→21:56)
[2018-11-10] MEDS: SIMETHICONE 80 MG TAB CHEW PO SCH ×3 (08:32→22:10)
[2018-11-10] MEDS: PANTOPRAZOLE SODIUM 40 MG VIAL IVP SCH ×2 (08:32→21:56)
[2018-11-10] MEDS: SENNOSIDES/DOCUSATE SODIUM TAB PO SCH ×2 (08:32→21:57)
[2018-11-10] MEDS ORDERED: MAGNESIUM SULF 2 GM/WATER 50 ML IV ONE (09:30)
[2018-11-10] MEDS ORDERED: NS 1,500 ML IV ONE (10:02)
[2018-11-10] MEDS: ONDANSETRON 4 MG/2 ML VIAL IVP PRN (10:03)
--- NOTE | 2018-11-10 10:18 | HOSPPROG ---
Hospitalist Progress Note Assessment/Plan: CRITICAL CARE NOTE GREATER THAN 70 MIN BEDSIDE TIME IN 2 VISITS SUBJECTIVE: I was called to see this patient this morning for hypotension persisting after IV fluid boluses The patient experienced rigors through the night just before 4:00 a.m. 38.3, started having lower blood pressures just before midnight and blood pressures have persisted. Somewhere around 4:00 a.m. The patient did receive 2 L of IV normal saline. At this time I am asked to see the patient with a blood pressure 67/40. She states that she is feeling somewhat better today with decreased abdominal pain and cramping and has had several large loose stools this morning. No blood in the stools. She still nauseous but has not vomited. She has no new respiratory symptoms. She does mention she still having some burning dysuria and has some new right-sided flank pain. She does not notice any pain at her PICC site. No headache. OBJECTIVE Vitals reviewed: Blood pressure at 67/40, pulse 107, respirations stable, T- max 38.3 degrees System Analyst, my review: Sinus tach Exam: alert oriented looks tired but relaxed skin warm dry color pale resps not labored lungs clear BSs heart regular abd there is notable right-sided CVA/flank tenderness milder diffuse tenderness in the rest of the appy which is less distended than prior and soft limbs warm, no edema PICC site looks good in right arm and is nontender Lab data: WBC is quite remarkably lower today but she has 3300 bands which is new Stable hemoglobin and platelets On met panel today her CO2 is notably lower at 20 down from 28 but anion gap was in the normal range Electrolytes renal function and liver numbers all good on today's chemistry Microbiology: A stool sample was sent to the lab today is positive for C difficile Previous blood cultures on November 08 are negative so far ASSESSMENT: * Acute new onset severe sepsis so far persisting hypotension after 2 L saline given earlier this morning * High suspicion for acute right-sided pyelonephritis * PICC catheter is another potential source for infection though the local site looks good * With ongoing crampy abdominal pain, loose stools, new fever, and previous antibiotics during this prolonged hospital stay, as well as a need for adding new antibiotics now, will have to assume that she either has active C diff infection or a very high risk of developing that so will need to treat that at this time * Fecal impaction and terminal ileum acting as a small-bowel obstruction appears to have opened up at this time with passage of large volumes of stool but will need to follow this very closely; remains on TPN at this time will need to assess her progress with eating but still fairly nauseous today * Colitis noted on endoscopy, question of possible Crohn's disease * Left breast mastitis resolved and cefazolin * Gestational diabetes, with sugars in good range on TPN * Severe protein calorie malnutrition with BMI 17 and 15 lb weight loss at time of admission PLANS: * Sepsis protocol instituted including blood cultures and all the standard blood testing and fluid resuscitation measures * Begin empiric meropenem for suspected pyelonephritis with sepsis * Begin oral vancomycin for C difficile * I reviewed the patient and her at the bedside that if we do not get good response with her blood pressures may need to move her to ICU for pressor support * Continue TPN for the moment * Advance diet as tolerated * I have asked Dr. Mario Alberto Mota to see the patient and reviewed the case with him in detail * Will review with Dr. Nava from Gastroenterology Objective: Vital Signs Temp Pulse Resp BP Pulse Ox 36.7 C 107 H 16 67/40 L 93 11/10/18 08:22 11/10/18 08:22 11/10/18 08:22 11/10/18 08:22 11/10/18 08:22 Microbiology 11/09/18 22:15 Gastrointestinal Tract Panel (PCR) - Final Stool Clostridium Difficile Detected 11/08/18 21:15 Respiratory Panel (PCR) - Final Nasal, Sinus - Anaerobic Tube/Swab No Organism Detected By Pcr Laboratory Results 11/10/18 06:15 11/10/18 06:15 11/09/18 11/10/18 11/11/18 06:59 06:59 06:59 Intake Total 1586 600 Output Total 600 Balance 1586 0 PT 17.0 SEC (12.0-15.0) H 11/10/18 06:15 INR 1.37 (0.83-1.16) H 11/10/18 06:15 ICD10 Worksheet Patient Problems: Problems Problem Status Onset Abdominal pain Acute Colitis Acute
[2018-11-10] MEDS ORDERED: methylPREDNISolone SOD SUCC 125 MG/2 ML VIAL IVP ONE (11:15)
[2018-11-10] MEDS: MEROPENEM 1 GM in NS 100 ML IV SCH ×2 (11:51→18:43)
[2018-11-10] MEDS: PROMETHAZINE HCL 25 MG/ML INJ IVP PRN ×2 (11:57→19:10)
[2018-11-10] MEDS: VANCOMYCIN 125 MG/2.5 ML UDL PO SCH ×3 (11:57→21:56)
--- NOTE | 2018-11-10 12:05 | GCON ---
[f rep st] CONSULTATION INFECTIOUS DISEASE CONSULTATION DATE OF CONSULTATION: 11/10/2018 REASON FOR CONSULTATION: Sepsis, positive C difficile PCR. HISTORY OF PRESENT ILLNESS: Patient is a 33-year-old female with a complex recent past medical histo ry, which began in July at the time of childbirth, which was complicated by retained placenta req uiring uterine embolization. Subsequently, the patient notes that she has had problems with constipa tion. Occasionally, she has had concomitant diarrhea. Patient has experienced progressive constipat ion and abdominal discomfort most prominently over the last 3 weeks. She was seen in the emergency d [facility] in late September with abdominal pain associated with nausea and vomiting. 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 There was also question of possible enteritis affecting the distal ileum. Patient was admitted for further evaluation and seen by Gastroenterology. She underwent colonoscopy given suspicion of possible Crohn disease. Terminal ileum was noted to have some erythematous and in flamed mucosal surfaces of which biopsies were obtained. Biopsies were not confirmatory, however, fo r Crohn disease. The patient was treated empirically with prednisone 40 mg daily initially with impr darrell symptomatology. She was discharged home on 10/30/2018, with continued steroids with plans for o utpatient GI followup. The patient did receive ceftriaxone and metronidazole from 10/25/2018, nabilaug h 10/28/2018. On 11/01/2018, she was readmitted with recurrent epigastric pain and nausea. She was not noted to cutler ve a bowel movement post hospital discharge. X-rays performed upon repeat presentation were notable for ileus versus small bowel obstruction. She was seen in followup by surgical service with initial conservative therapy. An abdominal CT scan was then performed, which showed a persistent small bowel dilatation affecting the jejunum and ileum with right-sided colonic constipation with decompressed t ransverse and distal colon. The patient was maintained on methylprednisolone from 11/01/2018, throug h 11/05/2018. Ultimately, the patient underwent laparoscopic evaluation based on persistent symptoma tology on 11/06/2018, with findings of dilated small bowel, secondary to fecal impaction in the termi nal ileum. The patient also had evidence of left-sided mastitis and was receiving cefazolin during h er hospitalization. She has been treated with stool softeners, including MiraLAX and lactulose for h er constipation. Overnight, she developed fever with rigors lasting approximately 30 minutes. This was accompanied by new onset diarrhea with approximately 6 episodes of watery, foul-smelling diarrhea subsequently. No blood in the stool. She has mild abdominal discomfort. She also notes dysuria and mild right-sided flank pain. A PICC line is in the right upper extremity, which has been utilized for TPN. She does not have any pain, swelling, or drainage from the site. She notes diffuse myalgias and arthralgias. There is no cough or shortness of breath. She has had accompanying nausea this a.m. Stool studies were obtained earlier today, which showed evidence of C difficile by PCR panel. Blood cultures x2 o n 11/08/2018, show no growth. Additionally, this a.m., the patient was noted to have hypotension and tachycardia with significant bandemia. Given concerns about severe sepsis, as well as positive C di fficile PCR, I am now asked to assist in her ongoing management. PAST MEDICAL HISTORY: Retained placenta as above, gestational diabetes, hypothyroidism. PAST SURGICAL HISTORY: Uterine artery embolization, laparoscopic surgery as outlined above. CURRENT MEDICATIONS: Cefazolin 1 g IV q.8 hours, Bentyl 20 mg p.o. q.i.d., Dilaudid as needed for pa in, insulin sliding scale, Toradol 50 mg IV q.6 hours, Synthroid 25 mcg p.o. daily, Protonix 40 mg IV b.i.d., Mylicon 80 mg p.o. t.i.d., TPN. ALLERGIES: No known drug allergies. SOCIAL HISTORY: Patient does not smoke or drink alcohol. Pet dog at home. No recent travel. FAMILY HISTORY: Noncontributory, other than glaucoma. REVIEW OF SYSTEMS: Outside that noted in the HPI, the remainder of 10-system review is unremarkable. Left breast pain has markedly improved. Patient's notes that she has had mild confusion af ter receiving Ambien last night, which has continued into the a.m. PHYSICAL EXAMINATION: VITAL SIGNS: Temperature maximum 38.3, heart rate 107, respiratory rate 16, b lood pressure 67/40, oxygen saturation 93% on room air. GENERAL: Patient is a thin female who appea rs chronically ill, but nontoxic. HEENT: There is no scleral icterus, conjunctival injection, or co njunctival petechiae. Oropharynx shows dry mucous membranes. Dentition is in good repair. There is no nasal discharge. There is no tenderness over the frontal maxillary or mastoid area. NECK: Supp le without palpable lymphadenopathy or thyromegaly. CHEST: Clear to auscultation bilaterally withou t adventitious sounds. The respiratory effort is normal. CARDIOVASCULAR: Tachycardic, without murm urs, gallops, or rubs. ABDOMEN:: Soft, distended with hypoactive bowel sounds. There is epigastric tenderness present. No peritoneal signs. Laparoscopic sites are well healed without drainage. No palpable organomegaly. BACK: There is mild right-sided CVA tenderness. There is no spinous tendern ess. There is no left-sided CVA tenderness. MUSCULOSKELETAL: No cyanosis, clubbing, or edema. PIC C line is present in the right upper extremity without erythema or drainage. SKIN: No rashes presen t. No stigmata of endocarditis. The skin is warm and dry to touch. NEUROLOGIC: Patient is alert a nd interacts appropriately with examiner. Cranial nerves 2 through 12 are grossly intact. Sensation is grossly intact. Muscle tone is normal. LYMPHATICS: No cervical or supraclavicular nodes. EDWARD ST: No erythema, tenderness, or induration of left breast/nipple. LABORATORY/IMAGING: White blood cell count 4.9, hematocrit 36.2, platelets 140, neutrophils 13%, ban ds 68%. Serum creatinine 0.6, bicarb 20. Bilirubin 0.3, AST 21, ALT 36, alkaline phosphatase 39, al bumin 2.3. Venous lactate is pending. Stool GI pathogen panel by PCR testing is positive for C diff icile. Blood cultures x2 on 11/08/2018, are no growth. Abdominal x-ray shows moderate distention of small bowel and colonic loop with multiple air-fluid lev el suggesting small bowel obstruction. IMPRESSION: 1. Sepsis: Clinical findings, including fever, prominent bandemia, and hypotension all compatible w ith sepsis. Venous lactate is pending, as is rehydration with intravenous fluid, which will further define sepsis status. Etiologic considerations would include Clostridium difficile, intraabdominal i nfection postoperatively, pyelonephritis with dysuria and right-sided flank pain, or peripherally ins erted central catheter associated bloodstream infection. I agree with plans to begin empiric oral va ncomycin with meropenem 1 g IV q.8 hours pending additional culture data. Will obtain urinalysis, cu lture and blood cultures x2 (no preceding Finnegan catheter). Discussed with Dr. Perea as well nardai ng need for potential need for stress dose steroids. Patient based on recent methylprednisolone use in the setting of hypotension. 2. Positive Clostridium difficile PCR: Difficult to interpret if current findings are due to Clostr idium difficile versus if diarrhea is related to use of multiple stool softeners for prior constipati on with PCR findings representing colonization. Given the presence of superimposed sepsis, will sinan t as if if true disease. Will add intravenous metronidazole to oral vancomycin given ongoing concern s with bowel obstruction may be difficult to obtain drug delivery to the colon. If persistent danypaul t concerns regarding her ongoing obstruction, may need to consider vancomycin instillation by enema. 3. Mastitis: This has resolved. RECOMMENDATIONS: 1. Meropenem 1 g IV q.8 hours. 2. Vancomycin 125 mg orally 4 times per day. 3. Flagyl 500 mg IV q.8 hours. 4. Blood cultures x2. 5. Urinalysis and urine culture. 6. Await venous lactate and response to fluid challenge. Thank for this consultation. We will continue to follow the patient with you. /[id number]/MODL
[2018-11-10] MEDS: NOREPINEPHRINE BITARTRATE 4 MG in NS 500 ML IV SCH (12:33)
[2018-11-10] MEDS ORDERED: MAGNESIUM SULF 2 GM/WATER 50 ML BAG IV ONE (12:41)
[2018-11-10] MEDS: VASOPRESSIN 25 UNIT in NS 250 ML IV SCH ×2 (13:51→23:40)
--- NOTE | 2018-11-10 14:29 | ASMTCMCOM ---
JAYLEEN Note CM Note Notes: Spoke with Lisandra at [facility] and she states they have gotten approval for the transfer of patient but the father of the patient wanted to put it on hold for now. Patient is septic and has been transferred to the ICU.We will need another to conference when and if the patient decides to transfer. Lisandra is our contact at [phone]. CM will follow. Date Signed: 11/10/2018 02:27 PM Electronically Signed By:May Easley LCSW
--- NOTE | 2018-11-10 15:15 | GCON ---
[f rep st] CONSULTATION CRITICAL CARE CONSULT HISTORY OF PRESENT ILLNESS: This patient is a 33-year-old female who is about [address] a fairly unremarkable . She did, however, have retained products of requiring a D and C at the time complicated by a uterine bleed requiring embolization. Since that time, she h as had recurrent and intermittent constipation and diarrhea. She was in the emergency department on 10/23/18. A CT scan showed possible colitis. She was treated with antibiotics and IV fluids and dis charged home the same day. She returned that night, however, with ongoing difficulty. She was seen by GI. Colonoscopy was performed and she is thought to have symptoms similar to Crohn disease, thoug h biopsies were unremarkable. She was treated with steroids and and eventually recovered to be discharged on 10/30. On 11/01, however, she returned to the emergency room complaining of abdo caitlin pain on prednisone. A CT scan showed a small bowel obstruction at the level of the jejunum all the way to the terminal ileum with right colonic constipation. She had a white count of 25,000 and a lactate of 2.1 at that time. She underwent exploratory laparoscopy that showed only evidence of fe nasir impaction. She seemed to be getting better and on the was fairly stable though she was havi ng significant constipation. On the evening of the and early she had a T-max of 38.3, had a sudden increase in bowel movements with multiple GI medications. Her blood pressure subsequently d ropped and she had new right flank pain. She also at this time described dysuria that had been going on for quite some time, the duration is unclear. After 2-3 L of IV fluids her blood pressure failed to respond and was as low as 60/40. She was transferred to the intensive care unit. She did have a normal white count, but a bandemia and a procalcitonin was 7.38. She continued to have abdominal pa in, but her blood pressure was low with a CVP in the 20s. She was therefore started on Levophed and vasopressin to maintain her blood pressure. She is also getting Solu-Medrol as well as multiple anti biotics. Prior to her delivery she had no history of GI problems and no family history of inflammato ry bowel disease, and the whole Crohn's diagnosis sounds like this is somewhat in question. REVIEW OF SYSTEMS: She denied any chest pain or shortness of breath, cough, sputum production. She has had no emesis, but she has had ongoing nausea. PAST MEDICAL HISTORY: Includes missed , retained products of , mastitis, and PVCs i n the remote past. PAST SURGICAL HISTORY: Includes D and C x2 and the uterine embolization only. SOCIAL HISTORY: She is a nonsmoker. No significant alcohol or IV drug use. FAMILY HISTORY: Otherwise unremarkable. CURRENT MEDICATIONS: Include Tylenol, Dulcolax, Bentyl, Dilaudid, insulin, Toradol, Synthroid, Ativa n p.r.n., milk of magnesia, meropenem, Solu-Medrol, Flagyl, norepinephrine, Zofran, Protonix, MiraLAX , Phenergan, Senokot, Mylicon, normal saline, TPN, oral vancomycin, vasopressin, Ambien. PHYSICAL EXAM: VITAL SIGNS: She had a blood pressure of 67/42 with a heart rate of 104, sinus rhyth m, respiratory rate 29, oxygen saturation 97% on room air. GENERAL: She was a pleasant woman, somew hat somnolent, who was not in any major distress and was able to speak in full sentences without usin g accessory muscles for breathing. HEENT: Pupils equally round and reactive to light. Nonicteric a nd noninjected. Mucous membranes are moist without erythema or exudate. Breath sounds were clear to auscultation bilaterally without wheeze or rales. HEART: Regular rate and rhythm without murmurs, rubs, gallops. ABDOMEN: Quite tender in the left upper quadrant with guarding and hypoactive bowel tones. There was mild pain in the right lower quadrant, but this was easily palpable. Belly was oth erwise soft. She did have right-sided costophrenic angle tenderness. EXTREMITIES: No clubbing, cya nosis, or edema. NEUROLOGICAL: Exam is nonfocal. OBJECTIVE DATA: Includes white count of 4.9, hematocrit 36, platelets of 140. Complete metabolic pa timmy this morning was unremarkable save for a bicarb that was previously 28 down to now 18. Lactic ac id 2.8 and procalcitonin 7.38. A chest x-ray showed no evidence of pneumonia. ASSESSMENT/PLAN: Septic shock, though the exact source is not exactly clear. Possibilities include C diff which is positive, pyelonephritis given her urinary complaints, or bacterial translocation. P erforation seems less likely since her abdominal pain is spotty and difficult to determine what is ol d and what is new. Dr. Disla is going to see her soon, but I think a CT scan would certainly be wort h our while to further evaluate potential sources in the belly. Other possibilities would be an absc ess or quite remotely any other retained products of or previous procedures. I agree with her antibiotics for now, which are quite broad including meropenem, Flagyl and oral vancomycin. We w ill continue to follow her lactates. I think the likelihood of adrenal insufficiency is quite low an d I would prefer not to use steroids at this time; however, if pressor requirements continue to go up , hydrocortisone would be the appropriate choice. An echocardiogram is also pending, though I think that cardiomyopathy is unlikely, save for a possible takotsubo and very unlikely cardiomyo kathrine since her heart has been fine up until this point. TIME SPENT: A total of about 65 minutes of critical care time required to evaluate this patient who is critically ill at this time. /[id number]/MODL
--- NOTE | 2018-11-10 16:17 | ECHO ---
[email or web address] [address] [address] Main: [phone] Fax: Transthoracic Echocardiogram Name: WILLIE MEJÍA MR#: [id number] Study Date: 11/10/2018 Study Time: 01:42 PM Date of : 1985 Age: 33 year(s) Height: 167.6 cm (66 in.) Weight: 50.8 kg (112 lb.) BSA: 1.56 m2 Gender: Female Examination: Echo Indication: sepsis Image Quality: Contrast: Requested by: Parker Swann BP: / Heart Rate: Rhythm: Indication: sepsis Procedure Staff Stonemason Helper: Roya Ye [facility] Reading Physician: Parker Swann MD Requesting Provider: Conclusions: Mildly dilated left ventricle. Mildly reduced systolic LV function. The ejection fraction is estimated to be 40-45 %. Normal size right ventricle. Normal RV function. Mild to moderate tricuspid valve regurgitation. The pulmonary artery pressure is normal. Right ventricular systolic pressure measures 30mmHg. Trivial to small pericardial effusion. Measurements: Chambers Valvular Assessment AV/MV Valvular Assessment TV/PV Normal Normal Normal Name Value Range Name Value Range Name Value Range Ao Lucinda (2D): 2.8 cm (1.4 cm-2.6 AV Vmax: 0.92 m/s (1 m/s-1.7 TR Vmax: 2.50 mm/s ( - ) cm) m/s) TR PGmax: 25 mmHg ( - ) IVSd (2D): 0.8 cm (0.6 cm-1.1 AV maxP mmHg ( - ) syst. PAP: 30 mmHg ( - ) cm) AV meanP mmHg ( - ) PV Vmax: 0.53 m/s (0.6 m/s-0.9 LVDd (2D): 5.1 cm (3.9 cm-5.3 EDDI (VTI): 1.8 cm ( - ) m/s) cm) MV E Vmax: 0.78 m/s ( - ) PV PGmax: 1 mmHg ( - ) LVDs (2D): 4.1 cm (2.1 cm-4 MV A Vmax: 0.56 m/s ( - ) cm) MV E/A: 1.39 ( - ) LVPWd (2D): 0.8 cm ( - ) MV PHT: 0.031 s ( - ) LVOTd 1.8 cm 1.8 cm mm MVA (PHT): 7.1 s ( - ) LVEF (BP): 38 % (>=55 %) EF Range: 40-45 % RVDd(2D): 3.3 cm (1.9 cm-3.8 cmmm) Continued Measurements: Patient: WILLIE MEJÍA Study Date: 11/10/2018 Page 1 of 2 01:42 PM Chambers Valvular Assessment AV/MV Valvular Assessment TV/PV Name Value Name Value Name Value LADs: 2.8 cm MV DecTime: 99 m/s CVP (est.): 5 mmHg LADs Lon.0 cm MV E' Septal: 0.08 m/s LA Area: 16.0 cm2 MV E/E' Septal: 9.40 LA Volume: 46 ml MV E/E' Lateral: 9.50 LA Volume Index: 29.5 ml/m2 RA Area: 13.8 cm2 Additional Vessels Name Value Ao Ascendin.4 cm Inferior Vena Cava: 1.5 cm Findings: Left Ventricle: Mildly dilated left ventricle. No LV hypertrophy. Mildly reduced systolic LV function. The ejection fraction is estimated to be 40-45 %. Normal diastolic LV function. Right Ventricle: Normal size right ventricle. Normal RV function. Left Atrium: The left atrium is normal in size. Normal appearing atrial septum. Right Atrium: The right atrium is normal in size. A catheter is discernible in right atrium. Mitral Valve: The mitral valve is normal in appearance and function. Mild mitral valve regurgitation is present. No mitral stenosis is present. Aortic Valve: The aortic valve is tri-leaflet. There is no significant aortic valve regurgitation. No aortic valve stenosis is present. Tricuspid Valve: The tricuspid valve is normal in appearance and function. Mild to moderate tricuspid valve regurgitation. The pulmonary artery pressure is normal. Right ventricular systolic pressure measures 30mmHg. Pulmonic Valve: The pulmonic valve is normal in appearance and function. Mild pulmonic valve regurgitation is noted. Aorta: The aorta is normal. Normal size aortic root measuring 2.8 cm. Normal size ascending aorta measuring 2.4 cm. IVC: The IVC is normal sized. Pericardium: No echocardiographic evidence of hemodynamic compromise. Trivial to small pericardial effusion. (No Signature Object) Patient: WILLIE MEJÍA Study Date: 11/10/2018 Page 2 of 2 01:42 PM [id number]
--- NOTE | 2018-11-10 16:51 | SOAPPROG ---
SOAP Progress Note Assessment/Plan: [facility] Progress Note Assessment: Ira Musa is a 33 year old female post 4 months ( complicated by retained placenta and need for D&C uterine ablation) now in and out of the hospital the last 3 weeks with a partial distal ileal obstruction syndrome of uncertain etiology. In the last 24 hr she has developed sepsis with the underlying etiology possibly being Clostridium difficile colitis and/ or pyelonephritis and/or bacteremia (PICC line). Fortunately she has started having bowel movements though all likely related to new Clostridium difficile infection as she never took the bowel regimen prescribed yesterday. Plan: 1. Clear liquid diet okay if okay with ICU team 2. Continue TPN give malnourished and lack of nutrition the last few weeks 3. Agree with vancomycin 125 mg QID duration 14 days 4. Will await resolution of this current infectious status before pursuing any further endoscopy, enteroscopy, colonoscopy or 3 dimensional bowel imaging 5. We will continue to follow patient daily in hospital Eli Nava MD 11/10/18 16:47 11/10/18 16:51 11/10/18 16:54 Subjective: feeling less dizzy, abdomen bloated but less bloated/distended, have seven bowel movements between yesterday and today, bowel movements watery and non bloody Objective: Vital Signs Temp Pulse Resp BP Pulse Ox 36.4 C 82 21 H 87/58 L 98 11/10/18 11:34 11/10/18 15:30 11/10/18 15:00 11/10/18 15:30 11/10/18 15:00 Microbiology 11/09/18 22:15 Gastrointestinal Tract Panel (PCR) - Final Stool Clostridium Difficile Detected Laboratory Results 11/10/18 06:15 11/10/18 10:45 11/09/18 11/10/18 11/11/18 05:59 05:59 05:59 Intake Total 1586 600 Output Total 600 225 Balance 1586 0 -225 PT 17.0 SEC (12.0-15.0) H 11/10/18 06:15 INR 1.37 (0.83-1.16) H 11/10/18 06:15 Physical Exam - Physical Exam General Appearance: alert, no apparent distress, anxiety Respiratory: chest non-tender, lungs clear Cardiac/Chest: tachycardia Abdomen: other (much less distended, soft, minimal bowel sounds still, incisions c/d/i) Skin: normal color Extremities: normal range of motion, non-tender Neuro/Psych: alert ICD10 Worksheet Patient Problems: Problems Problem Status Onset Abdominal pain Acute Colitis Acute
[2018-11-10] MEDS: ENOXAPARIN 40 MG/0.4 ML SYR SC SCH (17:12)
[2018-11-10] MEDS ORDERED: methylPREDNISolone SOD SUCC 125 MG/2 ML VIAL IVP SCH (18:00)
[2018-11-10] MEDS ORDERED: IOHEXOL 300 mgI/ML (OMNIPAQUE) 150 ML BTL IV ONE (19:58)
[2018-11-10] MEDS: TPN 1 EA BAG IV SCH (21:57)
[2018-11-10] MEDS: ZOLPIDEM TARTRATE 5 MG TAB PO PRN (22:10)
[2018-11-11] MEDS: INSULIN REGULAR, HUMAN 100 UNIT/1 ML VIAL LOW SC SCH ×4 (00:31→17:45)
[2018-11-11] MEDS: KETOROLAC 15 MG/1 ML SDV IVP SCH ×4 (01:17→17:45)
[2018-11-11] MEDS: MEROPENEM 1 GM in NS 100 ML IV SCH ×3 (01:48→18:35)
[2018-11-11] MEDS: NOREPINEPHRINE BITARTRATE 4 MG in NS 500 ML IV SCH (03:06)
[2018-11-11] MEDS: VANCOMYCIN 125 MG/2.5 ML UDL PO SCH ×4 (06:10→21:37)
[2018-11-11] MEDS: DICYCLOMINE 20 MG TAB PO SCH ×4 (06:10→20:07)
[2018-11-11] MEDS: LEVOTHYROXINE 25 MCG TAB PO SCH (06:12)
[2018-11-11] MEDS: SENNOSIDES/DOCUSATE SODIUM TAB PO SCH ×2 (08:23→20:07)
--- NOTE | 2018-11-11 08:27 | SOAPPROG ---
SOAP Progress Note Assessment/Plan: Assessment/Plan: 33 Y F initially thought to have Crohn's but now that has been in question. More likely some kind of enteritis, etiology unclear. +severe constipation. s/p ex laparoscopy with findings of small bowel dilated 2/2 fecal impaction at ileum. POD#4. Patient hypotensive yesterday. Sepsis protocol initiated and transferred to ICU. Likely related to diarrhea. Now diagnosed c Cdif--not certain this is accurate dx but agree with oral vanc treatment. Currently doing better. Weaning from pressors. +7 BMs overnight, likely related to oral contrast from CT. CT yesterday personally reviewed--+bowel wall thickening and some ascites fluid, no free air. Will hold off on SBFT and await GI input. Endoscopy, colonoscopy, MRE, etc. likely when GI sees fit. If not pursuing these now, consider SBFT, c special attention to TI, R/O possible stricture based on OR findings of constipation and dilitation upstream from terminal ileum. Seen c Dr. Disla. D/w'ed medicine. S: pain is better. no n/v. lots of BMs last night. O: alert, nad mmm ctab anteriorly rrr abd softly less distention, nt. 11/11/18 08:27 Objective: Vital Signs Temp Pulse Resp BP Pulse Ox 36.8 C 52 L 21 H 115/65 98 11/11/18 07:10 11/11/18 07:10 11/11/18 07:10 11/11/18 07:10 11/11/18 07:10 Microbiology 11/09/18 22:15 Gastrointestinal Tract Panel (PCR) - Final Stool Clostridium Difficile Detected Laboratory Results 11/10/18 06:15 11/10/18 10:45 11/10/18 11/11/18 11/12/18 05:59 05:59 05:59 Intake Total 600 4952.3 Output Total 600 2050 Balance 0 2902.3 PT 17.0 SEC (12.0-15.0) H 11/10/18 06:15 INR 1.37 (0.83-1.16) H 11/10/18 06:15 ICD10 Worksheet Patient Problems: Problems Problem Status Onset Abdominal pain Acute Colitis Acute
[2018-11-11] MEDS: ENOXAPARIN 40 MG/0.4 ML SYR SC SCH (08:37)
[2018-11-11] MEDS: PANTOPRAZOLE SODIUM 40 MG VIAL IVP SCH ×2 (08:37→20:07)
[2018-11-11] MEDS: SIMETHICONE 80 MG TAB CHEW PO SCH ×3 (08:38→21:36)
--- NOTE | 2018-11-11 09:03 | HOSPPROG ---
Hospitalist Progress Note Assessment/Plan: SUBJECTIVE: Feeling somewhat better overall today However still has right flank mid abdomen pain, intermittent nausea, Still having frequent diarrheal stools without blood at this time, some cramping with that, and still having some chills intermittently No acute events during the night otherwise Her pressors have been weaned, she still on norepinephrine and vasopressin but both at very low doses presently OBJECTIVE Vitals reviewed: Blood pressure is now in normal range, pulse now down into the 70s 80s, respirations stable and no fever since yesterday morning [employer], my review: Sinus rhythm Exam: alert oriented looks tired but relaxed skin warm dry color pale, no jaundice resps not labored lungs clear BSs heart regular abd right mid abdomen and flank and CVA tenderness remain present, and notably there is now some high epigastric tenderness; the only other tender area is mild tenderness right around her previous laparotomy incision what's looks good otherwise. The abdomen is soft less distended and bowel sounds are present, no masses palpable Minimal peripheral edema PICC site looks good in right arm and is nontender Echocardiogram: EF is reduced at 45% otherwise unremarkable Lab data: White blood cell count is increased today, a little bit more anemic Slight further decrease in platelets Mild metabolic acidosis without anion gap Sodium and potassium stable Kidney function stable CRP is elevated at 337 Lipase is normal Microbiology: Stool 11/10 positive for C difficile Blood cultures 11/08 no growth to date; 11/10 no growth to date Urine culture 11/10 no growth to date Imaging: I reviewed images from CT scan of the abdomen done last night: Remarkably there is now some ascites particularly in the pelvis in small volume, and the remains diffuse distal small bowel and some large bowel inflammatory edema. There is no free air and no abscess. Overall however the bowel is much less distended. Liver spleen kidneys pancreas all appear unremarkable. No evidence of vascular issues ASSESSMENT: * Acute septic shock, improving significantly overnight * Question if C diff or pyelonephritis or other cause of the shock and sepsis * C difficile colitis * PICC catheter is another potential source for infection though the local site looks good * Cardiomyopathy with decreased ejection fraction at 45 %. Suspect this is acute in due to sepsis, but she could have a previous underlying issue related to or otherwise. No signs of heart failure at present. Needs close follow-up * Fecal impaction of terminal ileum acting as a small-bowel obstruction appears to have resolved at this time * Colitis and ileitis noted on endoscopy and again now on CT scan, possible Crohn's disease versus other causes * Left breast mastitis resolved with antibiotic therapy * Gestational diabetes, sugars a bit labile but mostly in reasonably good range at this time, no hypoglycemia * Severe protein calorie malnutrition with BMI 19 and 15 lb weight loss at time of admission, suspect related to her colitis and ongoing diarrhea from that PLANS: * Continue attempts to wean off pressor support today * Continue meropenem and Flagyl to cover for possible pyelonephritis/peritonitis ; continue Flagyl and Vanco for C diff * Continue TPN for the moment * Currently on clear liquids, consider possibly advancing that depending on her progress * Continue steroids at this time the will begin to taper dose * Will need to follow her abdominal exam and imaging closely, be concerned about the possible development of abscess * I reviewed with Dr. Agustin Disla and Dr. Nava today, will review with Dr. Herrera and with Infectious Disease as well Objective: Vital Signs Temp Pulse Resp BP Pulse Ox 36.8 C 54 L 22 H 107/66 97 11/11/18 07:10 11/11/18 08:00 11/11/18 08:00 11/11/18 08:00 11/11/18 08:00 Microbiology 11/09/18 22:15 Gastrointestinal Tract Panel (PCR) - Final Stool Clostridium Difficile Detected 11/10/18 11/11/18 11/12/18 06:59 06:59 06:59 Intake Total 600 4952.3 Output Total 600 2050 Balance 0 2902.3 PT 17.0 SEC (12.0-15.0) H 11/10/18 06:15 INR 1.37 (0.83-1.16) H 11/10/18 06:15 - Time Spent With Patient Time Spent with Patient: greater than 35 minutes Time Spent with Patient: Greater than 35 minutes spent on this patients care, greater than 50% of time spent counseling, educating, and coordinating care regarding the above mentioned plan. ICD10 Worksheet Patient Problems: Problems Problem Status Onset Abdominal pain Acute Colitis Acute
--- NOTE | 2018-11-11 09:30 | PCMIDPN ---
Assessment/Plan: Assessment/Plan: * Septic shock: May all be related to severe C difficile based on persistent diarrhea and edema noted on abdominal CT scan (could also be due to low protein state). Overall clinically improved versus yesterday although has some findings of delirium present. Based on need for pressor support, will increase oral vancomycin to 500 mg four times daily and continue IV metronidazole based on current guidelines. Await additional maturity of blood cultures prior to discontinuing meropenem but would like to stop this if cultures remain negative in order to decrease pressure for C difficile. Continue ICU supportive care. * Leukocytosis: May represent appropriate response to sepsis with increase today resultant of prominent bandemia yesterday. Also can be present with severe C difficile. Continue to follow over time. Time spent, greater than 35 min, which greater than half was spent in education/ counseling/coordination of care related to septic shock and C difficile colitis as well as plan of care. 11/11/18 09:26 11/11/18 09:40 Subjective: Patient with continued diarrhea. Abdominal pain/cramps less prominent. Blood pressure requiring pressor support. Mild dysuria persists. Objective: Vital Signs Temp Pulse Resp BP Pulse Ox 36.8 C 60 24 H 104/68 96 11/11/18 07:10 11/11/18 08:55 11/11/18 08:55 11/11/18 08:55 11/11/18 08:55 Microbiology 11/09/18 22:15 Gastrointestinal Tract Panel (PCR) - Final Stool Clostridium Difficile Detected Laboratory Results 11/11/18 08:40 11/10/18 11/11/18 11/12/18 05:59 05:59 05:59 Intake Total 600 4952.3 Output Total 600 2050 Balance 0 2902.3 ESR 1 MM/HR (0-20) 11/03/18 04:20 C-Reactive Protein < 5.0 mg/L (<10.0) 11/03/18 04:00 Oral vancomycin 125 mg four times daily # 2 Metronidazole 500 mg IV q.8 hours # 2 Meropenem 1 g IV q.8 hours # 2 Blood cultures x2 no growth to date Urine culture pending UA 1-[address] abdomen/pelvis reviewed and interpreted by me showing bowel wall edema affecting small bowel and colon Laboratory Tests 11/11/18 11/11/18 08:40 08:40 WBC 22.61 H Hct 31.0 L Plt Count 115 L Seg Neutrophils % 69.0 Band Neutrophils % 22.0 Creatinine 0.4 L Total Bilirubin 0.3 AST 22 ALT 34 Alkaline Phosphatase 107 Albumin 2.2 L - Physical Exam General Appearance: alert, no apparent distress, non-toxic, other (Mildly confused) EENT: No scleral icterus, No thrush Respiratory: lungs clear, No respiratory distress Cardiac/Chest: regular rate, rhythm Extremities: No inflammation Abdomen: non-tender, distended (Less prominent than yesterday), other ( Laparoscopic incision intact without erythema or drainage) Back: No CVA tenderness Skin: No rash Neuro/Psych: confused - Line/s RUE PICC Lines: No drainage, No erythema ICD10 Worksheet Patient Problems: Problems Problem Status Onset Abdominal pain Acute Colitis Acute
[2018-11-11 09:34] LABS: PLATELET COUNT 115 10^3/uL (150-400)
--- NOTE | 2018-11-11 09:47 | SOAPPROG ---
SOAP Progress Note Assessment/Plan: [facility] Progress Note Assessment: Ira Musa is a 33 year old female with a partial distal ileal obstruction syndrome of uncertain etiology (previous ileal colon biopsies not consistent with Crohn's disease), CT scan from yesterday with oral/IV still showing edematous distal ileum and right colon. The Clostridium difficile is likely a secondary complication and not the primary etiology. Celiac titers negative. Currently she is improving after a sepsis event from Clostridium difficile colitis and/or pyelonephritis and/or bacteremia (PICC line). Today we discussed an endoscopy/push enteroscopy and a repeat colonoscopy/ ileoscopy for biopsies if able to safely take the colonic prep in the next 1-2 days. Also, we discussed performing labs for rare bowel disease that can lead to edema, inflammation, dysmotility such as SLE, hereditary angioedema, systemic mastocytosis, scleroderma, seronegative celiac disease. Plan: 1. Okay to advance to full liquid diet 2. Continue TPN 3. Agree with vancomycin 125 mg QID and IV flagyl for CDIFF 4. Labs for diseases as above 5. Will evaluate her clinical status tomorrow to determine next steps Eli Nava MD 11/11/18 09:48 Subjective: having diarrhea, contrast evacuated, hungry wants to try more food Objective: Vital Signs Temp Pulse Resp BP Pulse Ox 36.8 C 60 24 H 104/68 96 11/11/18 07:10 11/11/18 08:55 11/11/18 08:55 11/11/18 08:55 11/11/18 08:55 Microbiology 11/09/18 22:15 Gastrointestinal Tract Panel (PCR) - Final Stool Clostridium Difficile Detected Laboratory Results 11/11/18 08:40 11/11/18 08:40 11/10/18 11/11/18 11/12/18 05:59 05:59 05:59 Intake Total 600 4952.3 Output Total 600 2050 Balance 0 2902.3 PT 17.0 SEC (12.0-15.0) H 11/10/18 06:15 INR 1.37 (0.83-1.16) H 11/10/18 06:15 Physical Exam - Physical Exam General Appearance: alert, anxiety Respiratory: chest non-tender, lungs clear, normal breath sounds Cardiac/Chest: regular rate, rhythm Abdomen: soft, other (mildly tender less bloated) Skin: normal color Neuro/Psych: alert, oriented x 3, other (very anxious) ICD10 Worksheet Patient Problems: Problems Problem Status Onset Abdominal pain Acute Colitis Acute
--- NOTE | 2018-11-11 13:03 | PDINTPN ---
[employer] Super[employer] Progress Note Assessment/Plan: 33 F admitted 10/31/18 with chronic abdominal pain since delivery of her healthy baby in late May. Her course was complicated by retained products of , requiring D&C in 07/2018, followed by uterine artery embolization. She had loose stools following delivery as well, but mostly constipation since the DC/embolization. Her workup included colonoscopy with biopsies that did not confirm Crohns, but suspicions were adequate to treat empirically with steroids and mesalamine. She eventually had an ex lap that confirmed only fecal impaction (as seen on CT) and was recovering on the floor when she developed profuse diarrhea and septic shock requiring pressors after aggressive IVF resuscitation. A repeat CT showed resolution of her previously dilated SB loops and diffu=se colitis along with positive testing for Cdiff. * Septic shock- likely newly developed C diff given presentation and rapid response to appropriate therapy. UA was bland (r/o pyelo), no evidence of perforation on CT, and blood cultures remain negative. PICC site without evidence of infection. Would continue observation in ICU today given uncertainties about her previous GI diagnosis * Fecal impaction/constipation- GI following closely and checking for atypical diseases, eg CTD. Also planning eventual further endoscopy. Slowly advancing diet. No further surgical intervention indicated at the moment. Surgery also following closely. I would continue to hold steroids,. Lipase low and no pancreatitis seen on CT. * C diff - on po vanco, IV flagyl. Her wbc is elevated today, but she did get steroids yesterday. Watch closely * Cardiomyopathy- she had an echo as part of her hypotension workup revealing an EF of only 40-45% without PH or clear Takutsubo (though mild LV dilation) Subjective: much better today and now off pressors. Still with diarrhea. Some delirium noted after received ativan last pm. Objective: Vital Signs Temp Pulse Resp BP Pulse Ox 36.8 C 80 20 86/53 L 97 11/11/18 07:10 11/11/18 11:00 11/11/18 11:00 11/11/18 11:00 11/11/18 11:00 Microbiology 11/09/18 22:15 Gastrointestinal Tract Panel (PCR) - Final Stool Clostridium Difficile Detected Laboratory Results 11/11/18 10:20 11/11/18 08:40 11/10/18 11/11/18 11/12/18 05:59 05:59 05:59 Intake Total 600 4952.3 Output Total 600 2049 425 Balance 0 2902.3 -425 PT 17.0 SEC (12.0-15.0) H 11/10/18 06:15 INR 1.37 (0.83-1.16) H 11/10/18 06:15 Physical Exam - Physical Exam General Appearance: WD/WN, alert, no apparent distress EENT: PERRL/EOMI Neck: supple Respiratory: lungs clear, normal breath sounds, decreased breath sounds, No respiratory distress, No accessory muscle use Cardiac/Chest: regular rate, rhythm, No edema Abdomen: normal bowel sounds, soft, guarding, No distended, No rigid Skin: normal color, warm/dry, No cyanosis Lymphatic: no adenopathy Extremities: No pedal edema Neuro/Psych: alert, normal mood/affect, oriented x 3 ICD10 Worksheet Patient Problems: Problems Problem Status Onset Abdominal pain Acute Colitis Acute
--- NOTE | 2018-11-11 14:54 | ASMTCMCOM ---
CM Note CM Note Notes: Pt remains on ICU, colonoscopy scheduled for tomorrow. Transfer on hold at this point. Discharge needs TBD at this time. CM to follow. Plan: TBD Date Signed: 11/11/2018 02:53 PM Electronically Signed By:MORTEZA Shoemaker
[2018-11-11] MEDS: TPN 1 EA BAG IV SCH (21:37)
[2018-11-11] MEDS: PROMETHAZINE HCL 25 MG/ML INJ IVP PRN (21:38)
[2018-11-11] MEDS: MELATONIN 3 MG TAB PO PRN (22:05)
[2018-11-12] MEDS: INSULIN REGULAR, HUMAN 100 UNIT/1 ML VIAL LOW SC SCH ×4 (01:18→19:02)
[2018-11-12] MEDS: KETOROLAC 15 MG/1 ML SDV IVP SCH ×4 (01:18→12:15)
[2018-11-12] MEDS: LEVOTHYROXINE 25 MCG TAB PO SCH (05:57)
[2018-11-12] MEDS: VANCOMYCIN 125 MG/2.5 ML UDL PO SCH ×4 (05:57→21:31)
[2018-11-12] MEDS: DICYCLOMINE 20 MG TAB PO SCH ×4 (05:57→19:57)
[2018-11-12] MEDS: PROMETHAZINE HCL 25 MG/ML INJ IVP PRN ×3 (06:22→22:54)
[2018-11-12 06:26] LABS: PLATELET COUNT 115 10^3/uL (150-400)
--- NOTE | 2018-11-12 08:25 | POSTANESTH ---
Post Anesthetic Evaluation Cardiovascular Status: Normal, Stable Respiratory Status: Similar to Pre-op Cond. Level of Consciousness/Mental Status: Can Participate in Eval Pain Control: Adequate, Prn Tx Ordered Nausea/Vomiting Control: Adequate, Prn Tx Ordered Complications Possibly Related to Anesthesia: None Noted
[2018-11-12] MEDS: ENOXAPARIN 40 MG/0.4 ML SYR SC SCH (09:03)
[2018-11-12] MEDS: PANTOPRAZOLE SODIUM 40 MG VIAL IVP SCH ×2 (09:03→20:02)
[2018-11-12] MEDS: ONDANSETRON 4 MG/2 ML VIAL IVP PRN (09:05)
--- NOTE | 2018-11-12 09:39 | SOAPPROG ---
CHARLES Progress Note Assessment/Plan: Assessment/Plan: 33 Y F initially thought to have Crohn's but now that has been in question. More likely some kind of enteritis, etiology unclear. +severe constipation. s/p ex laparoscopy with findings of small bowel dilated 2/2 fecal impaction at ileum. POD#4. Stable. +20 BMs yesterday and thru night, but seems to be slowing down this am. On oral vancomycin for c dif diagnosis. If ok with GI, then will get SBFT today c special attention to TI, R/O possible stricture based on OR findings of constipation and dilitation upstream from terminal ileum. S: pain is better. less distention, less cramping. +multiple BMs (has had large amounts of laxatives, and now dx of cdif). +nausea, phenergan helping. O: alert, nad mmm ctab anteriorly rrr abd softer, less distention, nt. 11/12/18 09:33 Objective: Vital Signs Temp Pulse Resp BP Pulse Ox 36.6 C 57 L 20 101/67 96 11/12/18 08:00 11/12/18 08:00 11/12/18 08:00 11/12/18 08:00 11/12/18 08:00 Laboratory Results 11/12/18 06:02 11/12/18 06:02 11/11/18 11/12/18 11/13/18 05:59 05:59 05:59 Intake Total 4952.3 2666.3 Output Total 2050 1475 Balance 2902.3 1191.3 PT 17.0 SEC (12.0-15.0) H 11/10/18 06:15 INR 1.37 (0.83-1.16) H 11/10/18 06:15 ICD10 Worksheet Patient Problems: Problems Problem Status Onset Abdominal pain Acute Colitis Acute
[2018-11-12] MEDS: SIMETHICONE 80 MG TAB CHEW PO SCH ×3 (11:55→21:32)
[2018-11-12] MEDS: SENNOSIDES/DOCUSATE SODIUM TAB PO SCH ×2 (11:55→19:58)
--- NOTE | 2018-11-12 13:56 | PDINTPN ---
Drapery Hand Progress Note Assessment/Plan: 33 F admitted 10/31/18 with chronic abdominal pain since delivery of her healthy baby in late May. Her course was complicated by retained products of , requiring D&C in 07/2018, followed by uterine artery embolization. She had loose stools following delivery as well, but mostly constipation since the DC/embolization. Her workup included colonoscopy with biopsies that did not confirm Crohns, but suspicions were adequate to treat empirically with steroids and mesalamine. She eventually had an ex lap that confirmed only fecal impaction (as seen on CT) and was recovering on the floor when she developed profuse diarrhea and septic shock requiring pressors after aggressive IVF resuscitation. A repeat CT showed resolution of her previously dilated SB loops and diffu=se colitis along with positive testing for Cdiff. * Septic shock- likely newly developed C diff given presentation and rapid response to appropriate therapy. UA was bland (r/o pyelo), no evidence of perforation on CT, and blood cultures remain negative. PICC site without evidence of infection. OK for transfer * Fecal impaction/constipation- GI following closely and checking for atypical diseases, eg CTD. Also planning eventual further endoscopy, likely 11/13/18. Slowly advancing diet. No further surgical intervention indicated at the moment. Surgery also following closely. I would continue to hold steroids,. Remarakably softer abdominal exam today * C diff - on po vanco, IV flagyl. Her wbc is reduced. Watch closely * Cardiomyopathy- she had an echo as part of her hypotension workup revealing an EF of only 40-45% without PH or clear Takutsubo (though mild LV dilation) * stable for floor 11/12/18 13:53 11/12/18 13:55 Subjective: stable overnight and remains off pressors. Reduced intensity and frequency of BM. Objective: Vital Signs Temp Pulse Resp BP Pulse Ox 36.6 C 62 18 107/76 99 11/12/18 08:00 11/12/18 12:00 11/12/18 12:00 11/12/18 12:00 11/12/18 12:00 Laboratory Results 11/12/18 06:02 11/12/18 06:02 11/11/18 11/12/18 11/13/18 05:59 05:59 05:59 Intake Total 4952.3 2666.3 Output Total 2050 1475 Balance 2902.3 1191.3 PT 17.0 SEC (12.0-15.0) H 11/10/18 06:15 INR 1.37 (0.83-1.16) H 11/10/18 06:15 Physical Exam - Physical Exam General Appearance: WD/WN, alert, no apparent distress EENT: PERRL/EOMI Neck: supple Respiratory: lungs clear, normal breath sounds, No respiratory distress, No accessory muscle use Cardiac/Chest: regular rate, rhythm, No edema, No JVD, No tachycardia Abdomen: non-tender, soft, other (clean incisions), No normal bowel sounds, No distended Skin: normal color, warm/dry, No cyanosis Lymphatic: no adenopathy Extremities: No pedal edema Neuro/Psych: alert, normal mood/affect, oriented x 3 ICD10 Worksheet Patient Problems: Problems Problem Status Onset Abdominal pain Acute Colitis Acute
--- NOTE | 2018-11-12 14:04 | PCMIDPN ---
Assessment/Plan: Assessment/Plan: * Septic shock: Likely all related to C difficile given negative blood cultures and no other identifiable source. Shock has resolved. Continue high- dose oral vancomycin and IV metronidazole. If patient has repeat colonoscopy, may allow for determination if pseudomembranes present. Patient would like to have her infant visit but concerned about C difficile; discussed with patient that C difficile unusual to cause disease in children less than 1 year of age. 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 * Leukocytosis: Decreased white blood cell count today which will be monitored over time. Likely represents appropriate response to septic shock/C difficile and anticipate resolution with time. Time spent, greater than 35 min, which greater than half was spent in education/ counseling/coordination of care related to sepsis and C difficile colitis including discussion of epidemiology and transmission as well as ongoing plan of care. 11/12/18 14:00 11/12/18 14:03 Subjective: Overall patient feels significantly improved. Continues to have diarrhea with 3 episodes so far today. Abdominal distension feels less prominent with less cramping. Patient has questions about infant visiting in the setting of C difficile. Objective: Vital Signs Temp Pulse Resp BP Pulse Ox 36.6 C 62 18 107/76 99 11/12/18 08:00 11/12/18 12:00 11/12/18 12:00 11/12/18 12:00 11/12/18 12:00 Laboratory Results 11/12/18 06:02 11/12/18 06:02 11/11/18 11/12/18 11/13/18 05:59 05:59 05:59 Intake Total 4952.3 2666.3 Output Total 2050 1475 Balance 2902.3 1191.3 ESR 11 MM/HR (0-20) 11/11/18 10:20 C-Reactive Protein 337.8 mg/L (<10.0) H 11/11/18 11:30 P.o. Vancomycin 500 mg Q 6 hr # 2, oral vancomycin # 3 Metronidazole 500 mg IV q.8 hours # 3 Blood cultures x2 no growth - Physical Exam General Appearance: alert, no apparent distress, non-toxic, other (Sitting up on couch) EENT: No scleral icterus, No thrush Respiratory: lungs clear, No respiratory distress Cardiac/Chest: regular rate, rhythm Abdomen: non-tender, distended (Less prominent) Skin: No rash - Line/s RUE PICC Lines: No drainage, No erythema ICD10 Worksheet Patient Problems: Problems Problem Status Onset Abdominal pain Acute Colitis Acute
--- NOTE | 2018-11-12 14:28 | SOAPPROG ---
SOAP Progress Note Assessment/Plan: [facility] Progress Note Assessment: Ira Musa is a 33 year old female with a partial distal ileal obstruction syndrome of uncertain etiology (previous ileal colon biopsies not consistent with Crohn's disease), CT scan with oral/IV still showing edematous distal ileum and right colon. The Clostridium difficile is likely a secondary complication and not the primary etiology. Recovering from sepsis and off vasopressors. We discussed an endoscopy/push enteroscopy and a repeat colonoscopy/ileoscopy tomorrow. Given the recent hypotension she is at increased risk for sedation and thus we will have Anesthesia support for this procedure. Plan: 1. Clear liquid diet, NPO after midnight except for bowel prep and medications 2. Miralax prep (32 oz/119 gm Miralax) over 2-3 hours tonight at 5 pm, if does not achieve yellow stools repeat the Miralax prep 3. Continue TPN 4. Agree with vancomycin 125 mg QID and IV flagyl for CDIFF 5. Did not offer FMT given uncertainty underlying bowel abnormality 6. Endoscopy/Push enteroscopy and colonoscopy tomorrow am Eli Nava MD 11/12/18 14:25 11/12/18 14:30 Subjective: still having loose stools, less bloated, not nauseated with drinking Objective: Vital Signs Temp Pulse Resp BP Pulse Ox 36.6 C 62 18 107/76 99 11/12/18 08:00 11/12/18 12:00 11/12/18 12:00 11/12/18 12:00 11/12/18 12:00 Laboratory Results 11/12/18 06:02 11/12/18 06:02 11/11/18 11/12/18 11/13/18 05:59 05:59 05:59 Intake Total 4952.3 2666.3 Output Total 7321 1475 Balance 2902.3 1191.3 PT 17.0 SEC (12.0-15.0) H 11/10/18 06:15 INR 1.37 (0.83-1.16) H 11/10/18 06:15 Physical Exam - Physical Exam General Appearance: alert, anxiety, thin Respiratory: lungs clear, normal breath sounds Abdomen: normal bowel sounds, non-tender, soft, distended Skin: normal color Extremities: normal range of motion Neuro/Psych: alert ICD10 Worksheet Patient Problems: Problems Problem Status Onset Abdominal pain Acute Colitis Acute
[2018-11-12] MEDS: NS 1,000 ML IV SCH (16:51)
[2018-11-12] MEDS ORDERED: POLYETHYLENE GLYCOL 3350 17 GM PKT PO ONE (17:00)
--- NOTE | 2018-11-12 18:15 | HOSPPROG ---
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: Sinus rhythm Exam: alert oriented looks tired but relaxed skin warm dry color pale, no jaundice resps not labored lungs clear BSs heart regular abd less right flank tenderness, less diffuse tenderness, less distended Minimal peripheral edema PICC site looks good in right arm and is nontender Echocardiogram: EF is reduced at 45% otherwise unremarkable Lab data: Sugars in good range Normal metabolic panel White count improved 17 Hemoglobin dropped a bit further Platelets still low but stable Microbiology: Stool 11/10 positive for C difficile Blood cultures 11/08 no growth to date; 11/10 no growth to date Urine culture 11/10 no growth to date Imaging: I reviewed images from CT scan of the abdomen done last night: Remarkably there is now some ascites particularly in the pelvis in small volume, and the remains diffuse distal small bowel and some large bowel inflammatory edema. There is no free air and no abscess. Overall however the bowel is much less distended. Liver spleen kidneys pancreas all appear unremarkable. No evidence of vascular issues ASSESSMENT: * Acute septic shock, now resolved after pressors and fluid resuscitation * Question if C diff or pyelonephritis or other cause of the shock and sepsis, right flank pain suggesting question of pyelonephritis (blood cultures and urine all negative but she was already on Ancef for mastitis) * C difficile colitis, improving on treatment * PICC catheter is another potential source for infection though the local site looks good * Cardiomyopathy with decreased ejection fraction at 45 %. Suspect this is acute in due to sepsis, but she could have a previous underlying issue related to or otherwise. No signs of heart failure at present. Needs close follow-up * Fecal impaction of terminal ileum acting as a small-bowel obstruction appears to have resolved at this time * Colitis and ileitis noted on endoscopy and again on CT abdomen, possible Crohn 's disease versus other causes * Left breast mastitis, acute, resolved with antibiotic therapy * Gestational diabetes, sugars a bit labile but mostly in reasonably good range at this time, no hypoglycemia * Severe protein calorie malnutrition with BMI 19 and 15 lb weight loss at time of admission, suspect related to her colitis and ongoing diarrhea from that PLANS: * Watch for any signs of recurring sepsis now off pressors * Continue meropenem and Flagyl to cover for various sepsis sources; continue Flagyl and Vanco for C diff * Continue TPN for the moment * Currently on clear liquids at this time * Continue steroids at this time * Plan for colonoscopy repeat tomorrow to reassess colitis and ileitis, possible transfer to [facility] for push enteroscopy and 2nd opinion in the next day or 2 * Should have repeat echocardiogram at some point in the future, consider ZACHARY- inhibitor upon discharge if stable renal function and otherwise Objective: Vital Signs Temp Pulse Resp BP Pulse Ox 36.6 C 65 19 103/67 93 11/12/18 08:00 11/12/18 16:00 11/12/18 16:00 11/12/18 16:00 11/12/18 16:00 Laboratory Results 11/12/18 06:02 11/12/18 06:02 11/11/18 11/12/18 11/13/18 06:59 06:59 06:59 Intake Total 4952.3 2666.3 Output Total 2050 1475 Balance 2902.3 1191.3 PT 17.0 SEC (12.0-15.0) H 11/10/18 06:15 INR 1.37 (0.83-1.16) H 11/10/18 06:15 - Time Spent With Patient Time Spent with Patient: greater than 35 minutes Time Spent with Patient: Greater than 35 minutes spent on this patients care, greater than 50% of time spent counseling, educating, and coordinating care regarding the above mentioned plan. ICD10 Worksheet Patient Problems: Problems Problem Status Onset Abdominal pain Acute Colitis Acute
[2018-11-12] MEDS: ACETAMINOPHEN 325 MG TAB PO PRN (19:57)
[2018-11-12] MEDS: TPN 1 EA BAG IV SCH (21:31)
[2018-11-12] MEDS: MELATONIN 3 MG TAB PO PRN (22:54)
[2018-11-13] MEDS: INSULIN REGULAR, HUMAN 100 UNIT/1 ML VIAL LOW SC SCH ×5 (01:24→23:15)
[2018-11-13] MEDS: PROMETHAZINE HCL 25 MG/ML INJ IVP PRN (05:27)
[2018-11-13] MEDS: DICYCLOMINE 20 MG TAB PO SCH ×4 (05:27→21:02)
[2018-11-13] MEDS: VANCOMYCIN 125 MG/2.5 ML UDL PO SCH ×4 (05:30→21:05)
[2018-11-13] MEDS: LEVOTHYROXINE 25 MCG TAB PO SCH (05:30)
[2018-11-13 06:49] LABS: PLATELET COUNT 137 10^3/uL (150-400)
[2018-11-13] MEDS: NS 1,000 ML IV SCH (07:38)
[2018-11-13] MEDS: ONDANSETRON 4 MG/2 ML VIAL IVP PRN (07:41)
--- NOTE | 2018-11-13 09:46 | PDANEPAE ---
ANE Past Medical History - Cardiovascular History Hx Hypertension: No Hx Arrhythmias: No Hx Chest Pain: No Hx Coronary Artery / Peripheral Vascular Disease: No Hx CHF / Valvular Disease: No Hx Palpitations: Yes - Pulmonary History Hx COPD: No Hx Asthma/Reactive Airway Disease: No Hx Recent Upper Respiratory Infection: No Hx Oxygen in Use at Home: No Hx Sleep Apnea: No Sleep Apnea Screening Result - Last Documented: Negative - Endocrine History Hx Diabetes: No Hypothyroid: Yes Hyperthyroid: No Obesity: no - Renal History Hx Renal Disorders: No - Liver History Hx Hepatic Disorders: No - GI History Hx Gastrointestinal Disorders: Yes Gastrointestinal History Comment: H/O C Dificile - Other Health History Other Health History: H/O C Dif and sepsis - Chronic Pain History Chronic Pain: Yes ANE Review of Systems Review of Systems: - Exercise capacity Exercise capacity: >=4 METS METS (RN): 4 METS ANE Patient History - Allergies Allergies/Adverse Reactions: No Known Allergies Allergy (Verified 10/31/18 21:02) - Home Medications Home Medications: Levothyroxine [Synthroid 25 mcg (*)] 25 mcg PO DAILY06 10/23/18 [Last Taken ] - NPO status NPO Since - Liquids (Date): 11/13/18 NPO Since - Liquids (Time): 00:00 NPO Since - Solids (Date): 11/10/18 NPO Since - Solids (Time): 00:00 - Anes Hx Anes Hx: no prior problems - Smoking Hx Smoking Status: Never smoked Marijuana use: No - Alcohol Use Alcohol Use: Rarely - Family Anes Hx Family Anes Hx: neg - N/A ANE Labs/Vital Signs - Labs Result Diagrams: 11/13/18 05:40 11/12/18 06:02 - Vital Signs Blood Pressure: 103/71 Heart Rate: 51 Respiratory Rate: 16 O2 Sat (%): 98 Height: 167.64 cm Weight: 53.4 kg ANE Physical Exam - Airway Neck exam: FROM Mallampati Score: Class 2 Mouth exam: normal dental/mouth exam - Pulmonary Pulmonary: no respiratory distress, no rales or rhonchi, clear to auscultation - Cardiovascular Cardiovascular: regular rate and rhythym, no murmur, rub, or gallop - ASA Status ASA Status: II ANE Anesthesia Plan Anesthesia Plan: MAC Total IV Anesthesia: Yes
[2018-11-13] MEDS ORDERED: fentaNYL 100 MCG/2 ML INJ ONE (10:00)
[2018-11-13] MEDS ORDERED: PROPOFOL 200 MG/20 ML VIAL ONE (10:00)
[2018-11-13] MEDS ORDERED: ONDANSETRON 4 MG/2 ML VIAL IVP PRN (10:07)
[2018-11-13] MEDS ORDERED: NALOXONE HCL 0.4 MG/ML INJ IVP PRN (10:07)
[2018-11-13] MEDS ORDERED: PHENYLEPHRINE HCL 100 MCG/ML SYR IVP PRN (10:07)
[2018-11-13] MEDS ORDERED: LR 500 ML IV PRN (10:07)
[2018-11-13] MEDS ORDERED: fentaNYL 100 MCG/2 ML INJ IVP PRN (10:07)
[2018-11-13] MEDS ORDERED: PROMETHAZINE HCL 25 MG/ML INJ IVP PRN (10:07)
[2018-11-13] MEDS ORDERED: ONDANSETRON 4 MG/2 ML VIAL ONE (10:18)
--- NOTE | 2018-11-13 11:06 | GIREPORT ---
[facility] Surgical Services - Endoscopy Department Patient Name: Ira Musa Procedure Date: 11/13/2018 9:46 AM Patient Type: Inpatient Attending MD/ ER Physician: Eli Nava MD Procedure: Small bowel enteroscopy Indications: Unexplained periumbilical abdominal distress/pain, Abnormal abdominal C T, Diarrhea Patient Profile: 33 year old female with previous distal ileal obstruction then develope d Clostridium difficile colitis while hospitalized. Providers: Eli Nava MD Medicines: Monitored Anesthesia Care Complications: No immediate complications. Description of Procedure: After obtaining informed consent, the endoscope was passed under direct vision. Throughout the procedure, the patient's blood pressure, pulse, and oxygen saturations were monitored continuously. The Colonoscope was introduced through the mouth, and advanced to the proximal jejunum. Aft er obtaining informed consent, the endoscope was passed under direct visio n. Throughout the procedure, the patient's blood pressure, pulse, and oxyg en saturations were monitored continuously. The small bowel enteroscopy wa s accomplished without difficulty. The patient tolerated the procedure we ll. Findings: The examined esophagus was normal. Biopsies were taken with a cold forc eps for histology. Estimated blood loss was minimal. Diffuse minimal inflammation characterized by erythema was found in the entire examined stomach. Biopsies were taken with a cold forceps for Helicobacter pylori testing. Estimated blood loss was minimal. There was no evidence of significant pathology in the duodenal bulb, in the first portion of the duodenum, in the second portion of the duodenum, i n the third portion of the duodenum and in the fourth portion of the duodenum . Biopsies for histology were taken with a cold forceps for evaluation of celiac disease. Estimated blood loss was minimal. There was no evidence of significant pathology in the proximal jejunum. Biopsies were taken with a cold forceps for histology. Estimated blood loss was minimal. Estimated Blood Loss: Estimated blood loss was minimal. Post Op Diagnosis: - Normal esophagus. Biopsied. - Gastritis. Biopsied. - Normal duodenal bulb, first portion of the duodenum, second portion o f the duodenum, third portion of the duodenum and fourth portion of the duode num. Biopsied. - The examined portion of the jejunum was normal. Biopsied. Recommendation: - Return patient to hospital nava for ongoing care. - Advance diet as tolerated. - Await results of biopsies. - Perform a colonoscopy today. - Thank you for allowing me to participate in the care of this patient. Attending Participation: I personally performed the entire procedure. Eli Nava MD Eli Nava MD 11/13/2018 11:05:23 AM This report has been signed electronicallyEli Nava MD Number of Addenda: 0 Note Initiated On: 11/13/2018 9:46 AM [email or web address]
--- NOTE | 2018-11-13 11:14 | POSTANESTH ---
Post Anesthetic Evaluation Cardiovascular Status: Normal, Stable Respiratory Status: Normal, Stable Level of Consciousness/Mental Status: Can Participate in Eval Pain Control: Adequate, Prn Tx Ordered Nausea/Vomiting Control: Adequate, Prn Tx Ordered Complications Possibly Related to Anesthesia: None Noted
--- NOTE | 2018-11-13 11:21 | GIREPORT ---
[facility] Surgical Services - Endoscopy Department Patient Name: Ira Msua Procedure Date: 11/13/2018 9:47 AM Patient Type: Inpatient Attending MD/ ER Physician: Eli Nava MD Procedure: Colonoscopy Indications: Periumbilical abdominal pain, Abdominal pain in the right lower quadran t, Abnormal CT of the GI tract, Colitis Patient Profile: 33 year old female with previous distal ileal obstruction then develope d Clostridium difficile colitis while hospitalized. Providers: Eli Nava MD Medicines: Monitored Anesthesia Care Complications: No immediate complications. Description of Procedure: After obtaining informed consent, the scope was passed under direct vis ion. Throughout the procedure, the patient's blood pressure, pulse, and oxyg en saturations were monitored continuously. The Colonoscope was introduced through the anus and advanced to 20 cm into the ileum. The colonoscopy was performed without difficulty. The patient tolerated the procedure well. The quality of the bowel preparation was good. The terminal ileum, ileoceca l valve, appendiceal orifice, and rectum were photographed. Findings: The distal ileum appeared normal. Biopsies were taken with a cold force ps for histology. Estimated blood loss was minimal. The ileum, 20 cm from the ileocecal valve contained a single (solitary) ten mm ulcer. No bleeding was present. No stigmata of recent bleeding were seen. Biopsies were taken with a cold forceps for histology. Estimated blood loss was minimal. The ileum, 15 cm from the ileocecal valve appeared normal. Biopsies wer e taken with a cold forceps for histology. Estimated blood loss was minim al. A localized area of mucosa in the terminal ileum was granular. Biopsies were taken with a cold forceps for histology. Estimated blood loss was minim al. Diffuse moderate inflammation characterized by erosions, erythema and m ucus was found in the entire colon. Biopsies were taken with a cold forceps for histology. Estimated blood loss was minimal. Internal hemorrhoids were found during retroflexion. Estimated Blood Loss: Estimated blood loss was minimal. Post Op Diagnosis: - The examined portion of the ileum was normal ~25 cm from insertion. Biopsied. - A single (solitary) ulcer in the ileum, 20 cm from the ileocecal valv e. Crohn's disease most common reason for ulcer. Biopsied. - The examined portion of the ileum distal to the ulcer was normal ~ 10 -15 cm from insertion. Biopsied. - Granularity in the terminal ileum without ulceration. Biopsied. - Diffuse moderate inflammation was found in the entire examined colon secondary to pseudomembranous colitis. Biopsied. - Internal hemorrhoids. Recommendation: - Return patient to ICU for ongoing care. - Advance diet as tolerated. - Restarted Solumedrol 20 mg TID for now, may need to increase the dose and/or a biologic therapy. - Continue po vancomycin, though increase dose to 250 mg QID - Continue metronidazole 500 mg IV q8 for now - Await results of biopsies. - Thank you for allowing me to participate in the care of this patient. Attending Participation: I personally performed the entire procedure. Eli Nava MD Eli Nava MD 11/13/2018 11:21:05 AM This report has been signed electronicallyEli Nava MD Number of Addenda: 0 Note Initiated On: 11/13/2018 9:47 AM Total Procedure Duration Time 0 hours 23 minutes 8 seconds [email or web address]
[2018-11-13] MEDS: SENNOSIDES/DOCUSATE SODIUM TAB PO SCH ×2 (11:31→21:08)
[2018-11-13] MEDS: SIMETHICONE 80 MG TAB CHEW PO SCH ×3 (11:32→21:04)
[2018-11-13] MEDS: ENOXAPARIN 40 MG/0.4 ML SYR SC SCH (12:21)
[2018-11-13] MEDS: PANTOPRAZOLE SODIUM 40 MG VIAL IVP SCH ×2 (12:21→21:04)
[2018-11-13] MEDS: BUDESONIDE 3 MG EC CAP PO SCH (12:22)
[2018-11-13] MEDS: ACETAMINOPHEN 325 MG TAB PO PRN (14:05)
[2018-11-13] MEDS: MESALAMINE 250 MG PO SCH ×2 (15:07→21:02)
[2018-11-13] MEDS: methylPREDNISolone SOD SUCC 40 MG/ML VIAL IVP SCH ×2 (15:08→21:04)
--- NOTE | 2018-11-13 16:16 | PCMIDPN ---
Assessment/Plan: Assessment: 33-year-old woman with C diff colitis complicating possible Crohn' s disease. Overall she has improved with no vasopressor support required and decreasing diarrhea volume and frequency. Can discontinue Flagyl as a potential cause of her nausea. We will continue with the high-dose oral vancomycin at least until she is out of the ICU. Due to her travels and her plan to me in suppression will check T spot TB test on Saturday as this is the next day that it can go out to [facility]. In addition will check Coccidioides antibodies, Brucella antibody, Histoplasma urine antigen. Discussed in detail with the patient and her family that is possible she could have been exposed to an organism like tuberculosis while in [facility] and the immune system shift from could have predisposed her to dissemination and extra pulmonary disease manifesting as terminal ileitis. 1. Severe C diff colitis, improving 2. Possible Crohn's disease 3. Immunocompromised patient due to corticosteroid use systemically 4. Travel history with approximately 3 and half months in [facility] Plan: 1. Discontinue Flagyl 2. Continue oral vancomycin 500 mg p.o. Q 6 3. Testing ordered for Coccidioides antibodies, Brucella antibody, Histoplasma urine antigen, T spot TB test to be sent on Saturday Flex Schmidt MD Infectious Diseases 11/13/18 16:16 Subjective: Frequency and amount of diarrhea has decreased. This is in the setting of having bowel prep for colonoscopy this morning last evening. She underwent colonoscopy this morning with preliminary findings suggesting an ulceration in the ileum and increased suspicion for Crohn's disease. She has been started on methylprednisolone in addition to budesonide. 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 She has spent significant amount of time between [place] and [facility]. Additional travel includes trips to [place] and [place]. Objective: Vital Signs Temp Pulse Resp BP Pulse Ox 36.4 C 59 L 14 99/68 L 95 11/13/18 11:53 11/13/18 11:53 11/13/18 11:53 11/13/18 11:53 11/13/18 11:53 Microbiology 11/10/18 23:59 Urine Culture - Final Urine,Clean Catch Laboratory Results 11/13/18 05:40 11/12/18 06:02 11/12/18 11/13/18 11/14/18 05:59 05:59 05:59 Intake Total 2666.3 1500 300 Output Total 1475 0 Balance 1191.3 1500 300 ESR 11 MM/HR (0-20) 11/11/18 10:20 C-Reactive Protein 337.8 mg/L (<10.0) H 11/11/18 11:30 Medications Generic Name Dose Route Start Last Admin Trade Name Elias PRN Reason Stop Dose Admin Vancomycin HCl 500 mg 11/11/18 12:00 11/13/18 15:08 Vancocin Oral Liquid PO 12/11/18 11:59 500 mg QID [facility] Protocol Methylprednisolone Sodium Succinate 20 mg 11/13/18 14:00 11/13/18 15:08 Solu-Medrol IVP 05/12/19 13:59 20 mg Q8HRS [facility] Budesonide 9 mg 11/13/18 09:00 11/13/18 12:22 Entocort Ec PO 05/12/19 08:59 9 mg DAILY [facility] Microbiology 11/10/18 23:59 Urine,Clean Catch Urine Culture - Final 11/09/18 22:15 Stool Gastrointestinal Tract Panel (PCR) - Final Clostridium Difficile Detected 11/08/18 21:15 Nasal, Sinus - Anaerobic Tube/Swab Respiratory Panel (PCR) - Final No Organism Detected By Pcr 11/10/18 11:55 Blood Blood Culture - Preliminary 11/10/18 10:45 Blood Blood Culture - Preliminary 11/08/18 21:40 Blood Blood Culture - Preliminary 11/08/18 21:20 Blood Blood Culture - Preliminary Laboratory Tests 11/12/18 11/12/18 11/13/18 06:02 06:02 05:40 WBC 17.01 H 8.38 Hgb 9.6 L 10.2 L Plt Count 115 L 137 L Absolute Seg Neuts 14.27 H 5.61 Creatinine 0.4 L - Physical Exam General Appearance: no apparent distress, thin, non-toxic EENT: No scleral icterus Respiratory: No accessory muscle use Skin: No erythema Neuro/Psych: alert, normal mood/affect, oriented x 3, No confused - Time Spent With Patient Time Spent with Patient: greater than 35 minutes (Spent more than 35 min with patient and family at bedside discussing infectious differential of terminal ileitis and risk factors) Time Spent with Patient: Greater than 35 minutes spent on this patients care, greater than 50% of time spent counseling, educating, and coordinating care regarding the above mentioned plan. ICD10 Worksheet Patient Problems: Problems Problem Status Onset Abdominal pain Acute Colitis Acute
--- NOTE | 2018-11-13 17:06 | HOSPPROG ---
Hospitalist Progress Note Assessment/Plan: 33 yo F w likely crohn's here w prolonged, complex stay. ? Crohn's: colonoscopy results s/o crohn's s/p bx on solumedrol and budesonide no biologic until tissue dx and improved c diff cdiff: severe but improving benign abdominal exam continue po vanc; dc flagyl 2/2 nausea nausea: refractory to phenergan and zofran trial of ativan dc of flagyl sepsis: septic physiology has resolved proph: lmwh dispo: icu Subjective: case d/w dr lara. colonoscopy w inflamed terminal ileum w ulcer, biopsied. c/o ongoing nausea Objective: Vital Signs Temp Pulse Resp BP Pulse Ox 36.4 C 59 L 14 99/68 L 95 11/13/18 11:53 11/13/18 11:53 11/13/18 11:53 11/13/18 11:53 11/13/18 11:53 Microbiology 11/10/18 23:59 Urine Culture - Final Urine,Clean Catch Laboratory Results 11/13/18 05:40 11/12/18 06:02 11/12/18 11/13/18 11/14/18 05:59 05:59 05:59 Intake Total 2666.3 1500 300 Output Total 1475 0 Balance 1191.3 1500 300 PT 17.0 SEC (12.0-15.0) H 11/10/18 06:15 INR 1.37 (0.83-1.16) H 11/10/18 06:15 - Physical Exam Constitutional: no apparent distress, appears nourished Eyes: PERRL, anicteric sclera Ears, Nose, Mouth, Throat: moist mucous membranes, hearing normal Cardiovascular: regular rate and rhythym, no murmur, rub, or gallop Respiratory: no respiratory distress, no rales or rhonchi Gastrointestinal: distension, other (hypoactive bowel sounds. per pt, was loud prior to today), No normoactive bowel sounds, No guarding, No rebound Skin: warm, normal color Musculoskeletal: full muscle strength Neurologic: AAOx3 ICD10 Worksheet Patient Problems: Problems Problem Status Onset Abdominal pain Acute Colitis Acute
[2018-11-13] MEDS: LORazepam 2 MG/ML INJ IVP PRN ×2 (17:48→23:01)
[2018-11-13] MEDS: TPN 1 EA BAG IV SCH (21:07)
[2018-11-13] MEDS: MELATONIN 3 MG TAB PO PRN (23:01)
[2018-11-14] MEDS: VANCOMYCIN 125 MG/2.5 ML UDL PO SCH ×4 (06:16→21:09)
[2018-11-14] MEDS: DICYCLOMINE 20 MG TAB PO SCH ×4 (06:17→20:57)
[2018-11-14] MEDS: MESALAMINE 250 MG PO SCH ×4 (06:17→20:57)
[2018-11-14] MEDS: methylPREDNISolone SOD SUCC 40 MG/ML VIAL IVP SCH ×3 (06:18→21:10)
[2018-11-14] MEDS: LEVOTHYROXINE 25 MCG TAB PO SCH (06:18)
[2018-11-14] MEDS: INSULIN REGULAR, HUMAN 100 UNIT/1 ML VIAL LOW SC SCH ×3 (06:18→16:36)
[2018-11-14 06:52] LABS: PLATELET COUNT 158 10^3/uL (150-400)
[2018-11-14] MEDS: BUDESONIDE 3 MG EC CAP PO SCH (09:22)
[2018-11-14] MEDS: NS 1,000 ML IV SCH (09:22)
[2018-11-14] MEDS: PANTOPRAZOLE SODIUM 40 MG VIAL IVP SCH ×2 (09:23→20:57)
[2018-11-14] MEDS: SIMETHICONE 80 MG TAB CHEW PO SCH ×3 (09:23→21:25)
[2018-11-14] MEDS: ENOXAPARIN 40 MG/0.4 ML SYR SC SCH (09:23)
[2018-11-14] MEDS: SENNOSIDES/DOCUSATE SODIUM TAB PO SCH ×2 (09:35→20:57)
--- NOTE | 2018-11-14 11:07 | SOAPPROG ---
SOAP Progress Note Assessment/Plan: Assessment/plan: 33 y/o F admitted with abdominal pain/n/v. S/p ex laparoscopy with findings of small bowel dilated 2/2 fecal impaction at ileum. S/p colonoscopy and upper endoscopy. Findings consistent with Crohn's. Solumedrol restarted. C. diff. Frequency of BMs has decreased. Still passing gas. Flagyl d/c'ed. Septic shock. Unclear etiology. Resolved. Still recommend SBFT at some point. S: Feeling much better. Nausea and abdominal cramps almost completely resolved. Tolerating full liquid diet. Passing gas. O: Alert and oriented Afebrile VSS RRR CTAB, no increased WOB Abdomen: Soft, nontender, incision sites cdi. Still distended, but improved. 11/14/18 11:01 Objective: Vital Signs Temp Pulse Resp BP Pulse Ox 36.6 C 65 19 121/73 H 96 11/14/18 10:35 11/14/18 10:35 11/14/18 10:35 11/14/18 10:35 11/14/18 10:35 Microbiology 11/08/18 21:40 Blood Culture - Final Blood 11/08/18 21:20 Blood Culture - Final Blood 11/10/18 23:59 Urine Culture - Final Urine,Clean Catch Laboratory Results 11/14/18 06:15 11/14/18 06:15 11/13/18 11/14/18 11/15/18 05:59 05:59 05:59 Intake Total 1500 1852 Output Total 2200 Balance 1500 -348 PT 17.0 SEC (12.0-15.0) H 11/10/18 06:15 INR 1.37 (0.83-1.16) H 11/10/18 06:15 ICD10 Worksheet Patient Problems: Problems Problem Status Onset Abdominal pain Acute Colitis Acute
--- NOTE | 2018-11-14 11:58 | HOSPPROG ---
Hospitalist Progress Note Assessment/Plan: 33 yo F w likely crohn's here w prolonged, complex stay. ? Crohn's: colonoscopy results s/o crohn's s/p bx on solumedrol and budesonide no biologic until tissue dx and improved c diff beginning to eat, would like to advance diet patient wishes to be eating and having bm's prior to dc. reasonable considering failure of early dc on las admit and this prolonged hospital stay cdiff: severe but improving benign abdominal exam continue po vanc; dc flagyl 10/25 nausea nausea: refractory to phenergan and zofran trial of ativan dc of flagyl 11/14 improved sepsis: septic physiology has resolved proph: lmwh dispo: icu Subjective: much less nausea, hungry. case d/w dr dalton. no bm since yesterday Objective: Vital Signs Temp Pulse Resp BP Pulse Ox 36.6 C 65 19 121/73 H 96 11/14/18 10:35 11/14/18 10:35 11/14/18 10:35 11/14/18 10:35 11/14/18 10:35 Microbiology 11/08/18 21:40 Blood Culture - Final Blood 11/08/18 21:20 Blood Culture - Final Blood 11/10/18 23:59 Urine Culture - Final Urine,Clean Catch Laboratory Results 11/14/18 06:15 11/14/18 06:15 11/13/18 11/14/18 11/15/18 05:59 05:59 05:59 Intake Total 1500 1852 Output Total 2200 Balance 1500 -348 PT 17.0 SEC (12.0-15.0) H 11/10/18 06:15 INR 1.37 (0.83-1.16) H 11/10/18 06:15 - Physical Exam Constitutional: no apparent distress, appears nourished Eyes: PERRL, anicteric sclera Ears, Nose, Mouth, Throat: moist mucous membranes, hearing normal Cardiovascular: regular rate and rhythym, no murmur, rub, or gallop Respiratory: no respiratory distress, no rales or rhonchi Gastrointestinal: normoactive bowel sounds, soft, non-tender abdomen, distension , No guarding, No rebound Genitourinary: no bladder fullness, No phan in urethra Skin: warm, normal color Musculoskeletal: full muscle strength Neurologic: AAOx3 ICD10 Worksheet Patient Problems: Problems Problem Status Onset Abdominal pain Acute Colitis Acute
--- NOTE | 2018-11-14 12:11 | PCMIDPN ---
Assessment/Plan: Assessment: 33-year-old woman with C diff colitis complicating possible Crohn' s disease. Overall she continues to improve which is likely a combination of treating likely Crohn's disease with systemic steroids and improvement of her C diff colitis complicating possible Crohn's. Her nausea is improved pretty dramatically since yesterday again likely combination of stopping metronidazole which certainly can cause nausea in addition to increased effect of systemic steroids. We can decrease her oral vancomycin to 250 mg every 6 hr in planned for a total of a 10 day course. Although if the symptoms recur and depending on her degree of immune suppression we may do a bit longer taper it to ensure she does not recur to complicate her Crohn's disease. 1. Severe C diff colitis, improved 2. Possible Crohn's disease; Improving with systemic steroids 3. Immunocompromised patient due to corticosteroid use systemically 4. Travel history with approximately 3 [place] months in [place] Plan: 1. Decrease oral vancomycin to 250mg PO q6 hours 2. Pending tests: Coccidioides antibodies, Brucella antibody, Histoplasma urine antigen 3. Ordered T Spot TB test to be sent Saturday Flex Schmidt MD Infectious Diseases 11/14/18 12:05 Subjective: No fevers or chills overnight. Overall she feels much better today compared to yesterday, with much decreased nausea, increased appetite, and decreased frequency of diarrhea. Objective: Vital Signs Temp Pulse Resp BP Pulse Ox 36.6 C 65 19 121/73 H 96 11/14/18 10:35 11/14/18 10:35 11/14/18 10:35 11/14/18 10:35 11/14/18 10:35 Microbiology 11/08/18 21:40 Blood Culture - Final Blood 11/08/18 21:20 Blood Culture - Final Blood 11/10/18 23:59 Urine Culture - Final Urine,Clean Catch Laboratory Results 11/14/18 06:15 11/14/18 06:15 11/13/18 11/14/18 11/15/18 05:59 05:59 05:59 Intake Total 1500 1852 Output Total 2200 Balance 1500 -348 ESR 11 MM/HR (0-20) 11/11/18 10:20 C-Reactive Protein 337.8 mg/L (<10.0) H 11/11/18 11:30 Medications Generic Name Dose Route Start Last Admin Trade Name Freq PRN Reason Stop Dose Admin Methylprednisolone Sodium Succinate 20 mg 11/13/18 14:00 11/14/18 06:18 Solu-Medrol IVP 05/12/19 13:59 20 mg Q8HRS [facility] Vancomycin HCl 250 mg 11/14/18 10:45 Vancocin Oral Liquid PO 12/11/18 11:59 QID [facility] Protocol Discontinued Medications Generic Name Dose Route Start Last Admin Trade Name Elias PRN Reason Stop Dose Admin Metronidazole/Sodium Chloride 100 mls @ 100 mls/hr 11/10/18 11:30 11/13/18 12 :21 Flagyl 500 Mg (Premix) IV 12/10/18 11:29 100 mls Q8H [facility] Protocol Vancomycin HCl 500 mg 11/11/18 12:00 11/14/18 06:16 Vancocin Oral Liquid PO 12/11/18 11:59 500 mg QID [facility] Protocol Microbiology 11/10/18 23:59 Urine,Clean Catch Urine Culture - Final 11/09/18 22:15 Stool Gastrointestinal Tract Panel (PCR) - Final Clostridium Difficile Detected 11/10/18 11:55 Blood Blood Culture - Preliminary 11/10/18 10:45 Blood Blood Culture - Preliminary Laboratory Tests 11/13/18 11/14/18 05:40 06:15 WBC 8.38 12.10 H Hgb 10.2 L 11.7 L Plt Count 137 L 158 Absolute Seg Neuts 5.61 10.39 H Absolute Lymphocytes 1.90 0.38 L - Physical Exam General Appearance: no apparent distress, thin, non-toxic EENT: No scleral icterus Respiratory: No accessory muscle use Neck: full range of motion, supple Skin: No erythema Neuro/Psych: alert, normal mood/affect, oriented x 3, No confused - Time Spent With Patient Time Spent with Patient: greater than 25 minutes Time Spent with Patient: Greater than 25 minutes spent on this patients care, greater than 50% of time spent counseling, educating, and coordinating care regarding the above mentioned plan. ICD10 Worksheet Patient Problems: Problems Problem Status Onset Abdominal pain Acute Colitis Acute
--- NOTE | 2018-11-14 14:12 | SOAPPROG ---
CHARLES Progress Note Assessment/Plan: [facility] Progress Note (in process) Assessment: Anthony Musa is a 33 year old female with a working diagnosis of inflammatory stricturing distal ileal Crohn's disease. Preliminary pathology showing acute on chronic ileitis with skip areas of normal ileum in between. Preliminary pathology without granulomas.There is no malignancy or viral cytopathic effect. Anthony is slowly recovering also from Clostridium difficile colitis. We had an indepth discussion about treating the CDIFF and staying on steroids until biologic therapy is started, ideally, as an outpatient. Plan: 0. Nutrition: advance to low residue diet, consider stopping TPN in upcoming days 1. Solumedrol 20 mg TID (restarted on 11/13/2018) with eventual plan to transition to prednisone 2. Budesonide 9 mg daily (start on 11/13/2018) 3. Pentasa 1 gram QID (start on 11/13/2108) 4. Vancomycin 250 mg QID for a total of 14 days (start on 11/10/2018) 5. Follow up on other biopsies from yesterday 6. Follow up on HCV, HBV surf antigen, TSpot and TPMT 7. Follow up on several outstanding labs for CTD 8. Follow up with GI of the [facility] to further discuss starting a biologic therapy 9. Dr. Bowman rounding this weekend Eli Nava MD 11/14/18 14:10 Subjective: less nauseated since stopping flagyl, passing flatus, abdomen less tender, liquid bowel movements Objective: Vital Signs Temp Pulse Resp BP Pulse Ox 36.6 C 65 19 121/73 H 96 11/14/18 10:35 11/14/18 10:35 11/14/18 10:35 11/14/18 10:35 11/14/18 10:35 Microbiology 11/08/18 21:40 Blood Culture - Final Blood 11/08/18 21:20 Blood Culture - Final Blood 11/10/18 23:59 Urine Culture - Final Urine,Clean Catch Laboratory Results 11/14/18 06:15 11/14/18 06:15 11/13/18 11/14/18 11/15/18 05:59 05:59 05:59 Intake Total 1500 1852 Output Total 2200 Balance 1500 -348 PT 17.0 SEC (12.0-15.0) H 11/10/18 06:15 INR 1.37 (0.83-1.16) H 11/10/18 06:15 Physical Exam - Physical Exam General Appearance: alert, no apparent distress Neck: non-tender Respiratory: chest non-tender, lungs clear, normal breath sounds Cardiac/Chest: normal peripheral pulses, regular rate, rhythm Abdomen: distended, other (mild tenderness but soft) Neuro/Psych: no motor/sensory deficits, alert, normal mood/affect, oriented x 3 ICD10 Worksheet Patient Problems: Problems Problem Status Onset Abdominal pain Acute Colitis Acute
--- NOTE | 2018-11-14 15:00 | ASMTCMCOM ---
CM Note CM Note Notes: Per Dr. Werner's note Cdiff severe but improving. No therapies ordered. Likely patient will d/c independent to home. CM will follow. Date Signed: 11/14/2018 02:59 PM Electronically Signed By:May Easley LCSW
[2018-11-14 16:42] LABS: HEPATITIS A ANTIBODY TOTAL NEGATIVE (NEGATIVE); HEPATITIS B SURFACE ANTIGEN NEGATIVE (NEGATIVE); HEPATITIS C ANTIBODY TOTAL NEGATIVE (NEGATIVE)
[2018-11-14] MEDS ORDERED: METOCLOPRAMIDE 10 MG/2 ML VIAL ONE (19:38)
[2018-11-14] MEDS: TPN 1 EA BAG IV SCH (20:48)
[2018-11-14] MEDS: ONDANSETRON 4 MG/2 ML VIAL IVP PRN (20:58)
[2018-11-14] MEDS: LORazepam 2 MG/ML INJ IVP PRN (21:11)
[2018-11-14] MEDS: MELATONIN 3 MG TAB PO PRN (21:25)
[2018-11-15] MEDS: INSULIN REGULAR, HUMAN 100 UNIT/1 ML VIAL LOW SC SCH ×5 (01:26→23:47)
[2018-11-15] MEDS: MESALAMINE 250 MG PO SCH ×4 (06:11→20:58)
[2018-11-15] MEDS: VANCOMYCIN 125 MG/2.5 ML UDL PO SCH ×4 (06:12→21:10)
[2018-11-15] MEDS: methylPREDNISolone SOD SUCC 40 MG/ML VIAL IVP SCH ×3 (06:12→20:59)
[2018-11-15] MEDS: LEVOTHYROXINE 25 MCG TAB PO SCH (06:12)
[2018-11-15] MEDS: DICYCLOMINE 20 MG TAB PO SCH ×2 (06:12→11:54)
[2018-11-15 06:56] LABS: PLATELET COUNT 218 10^3/uL (150-400)
[2018-11-15] MEDS: ENOXAPARIN 40 MG/0.4 ML SYR SC SCH (08:00)
[2018-11-15] MEDS: SENNOSIDES/DOCUSATE SODIUM TAB PO SCH ×2 (08:01→20:58)
[2018-11-15] MEDS: BUDESONIDE 3 MG EC CAP PO SCH (08:03)
[2018-11-15] MEDS: SIMETHICONE 80 MG TAB CHEW PO SCH (08:03)
[2018-11-15] MEDS: PANTOPRAZOLE SODIUM 40 MG VIAL IVP SCH (08:04)
--- NOTE | 2018-11-15 09:47 | PCMIDPN ---
Assessment/Plan: #Sepsis secondary to Cdiff: resolved #Severe Cdiff w pseudomembranes on colonoscopy: much better, formed stool. Nausea resolves since stopping --plan to complete 14 days of PO vancomycin --call ID for additional questions. No ID F/u needed. GI can manage completion of therapy --patient needs T spot before starting biologics. #? Crohn's: patient reports to be that bx showed Crohn's and was AFB neg. on solumedrol and budesonide Meds vancomycin 250mg PO QID #5 Microbiology 11/09/18 22:15 Stool Gastrointestinal Tract Panel (PCR) - Final Clostridium Difficile Detected 11/08/18 21:40 Blood Cx (2) neg 11/10/18 10:45 Blood Cx (2) NGTD Subjective: feeling much better, slight bloating, no abdominal pain Objective: Vital Signs Temp Pulse Resp BP Pulse Ox 36.4 C 61 16 123/86 H 96 11/15/18 08:00 11/15/18 08:00 11/15/18 08:00 11/15/18 08:00 11/15/18 08:00 Microbiology 11/08/18 21:40 Blood Culture - Final Blood 11/08/18 21:20 Blood Culture - Final Blood Laboratory Results 11/15/18 06:20 11/15/18 06:20 11/14/18 11/15/18 11/16/18 05:59 05:59 05:59 Intake Total 1852 3040 Output Total 2200 Balance -348 3040 ESR 11 MM/HR (0-20) 11/11/18 10:20 C-Reactive Protein 337.8 mg/L (<10.0) H 11/11/18 11:30 - Physical Exam General Appearance: alert, no apparent distress, thin, non-toxic EENT: No thrush Respiratory: lungs clear, No accessory muscle use Neck: supple Cardiac/Chest: bradycardia Extremities: No pedal edema Abdomen: normal bowel sounds (slightly increased), non-tender, distended (mild) Skin: No rash Neuro/Psych: alert, normal mood/affect, oriented x 3 - Line/s RUE PICC Lines: No drainage, No erythema - Time Spent With Patient Time Spent with Patient: greater than 35 minutes Time Spent with Patient: Greater than 35 minutes spent on this patients care, greater than 50% of time spent counseling, educating, and coordinating care regarding the above mentioned plan. ICD10 Worksheet Patient Problems: Problems Problem Status Onset Abdominal pain Acute Colitis Acute
--- NOTE | 2018-11-15 11:09 | SOAPPROG ---
SOAP Progress Note Assessment/Plan: Assessment: Assessment/Plan: 33 y/o F admitted with abdominal pain/n/v. S/p ex laparoscopy with findings of small bowel dilated 2/2 fecal impaction at ileum. S/p colonoscopy and upper endoscopy. Findings consistent with Crohn's. Solumedrol restarted-WBC increased today. C. diff. -having small amount mucoid stool-continue vancomycin Consider weaning TPN if continues to tolerate solid food Will see again on Saturday. Please call me tomorrow if surgical issue arise S: Feeling much better. No nausea, eating small amounts regular food. + flatus. O: Alert and oriented, NAD Afebrile VSS no increased WOB Abdomen: Soft, nontender, incision sites cdi. Still distended, but improved. +BS Plan: 11/15/18 11:09 11/15/18 11:10 11/15/18 11:15 11/15/18 11:19 11/15/18 13:40 Objective: Vital Signs Temp Pulse Resp BP Pulse Ox 36.4 C 61 16 123/86 H 96 11/15/18 08:00 11/15/18 08:00 11/15/18 08:00 11/15/18 08:00 11/15/18 08:00 Microbiology 11/08/18 21:40 Blood Culture - Final Blood 11/08/18 21:20 Blood Culture - Final Blood Laboratory Results 11/15/18 06:20 11/15/18 06:20 11/14/18 11/15/18 11/16/18 05:59 05:59 05:59 Intake Total 1852 3040 Output Total 2200 Balance -348 3040 PT 17.0 SEC (12.0-15.0) H 11/10/18 06:15 INR 1.37 (0.83-1.16) H 11/10/18 06:15 ICD10 Worksheet Patient Problems: Problems Problem Status Onset Abdominal pain Acute Colitis Acute
[2018-11-15] MEDS: NS 1,000 ML IV SCH (11:46)
--- NOTE | 2018-11-15 13:29 | SOAPPROG ---
SOAP Progress Note Assessment/Plan: Assessment/Plan: 1. Large ileal ulceration, with prior obstructive symptoms. Continues to be slowly doing better. Passing gas, without significant nausea, but no significant b.m. No vomiting, and eating better. Still with some bloating, but active b.s. - cont IV steroids today; tomorrow, may be able to switch to prednisone 30 mg bid - cont pentasa - stop entocort (a weak steroid, compared to solumedrol) - d/c TPN - BC I.V. - d/c dicyclomine, simethicone, change PPI to oral (simplify things) - path pending 2. c diff positive. Some nonspecific colitis mentioned on her colonoscopy, but no pseudomembranes mentioned. Path pending. May be a false positive only, but agree with empiric treatment for 14 days. No retesting. 3. Epigastric pain x [address] unremarkable, as well as EGD two days prior. Nl lipase. ? nonspecific or a nondetected proximal small bowel ulcer. If so, should hopefully resolve with time and the above current management. 11/15/18 13:22 Subjective: cc: small bowel ulcer This is my first visit with this pt. Tolerating diet. Passing gas, but no bm. Denies significant nausea. No vomiting. Epigastric pain x 2 weeks. Denies ASA, NSAIDs prior to this illness. Objective: Vital Signs Temp Pulse Resp BP Pulse Ox 36.4 C 61 16 123/86 H 96 11/15/18 08:00 11/15/18 08:00 11/15/18 08:00 11/15/18 08:00 11/15/18 08:00 Microbiology 11/08/18 21:40 Blood Culture - Final Blood 11/08/18 21:20 Blood Culture - Final Blood Laboratory Results 11/15/18 06:20 11/15/18 06:20 11/14/18 11/15/18 11/16/18 05:59 05:59 05:59 Intake Total 1852 3040 Output Total 2200 Balance -348 3040 PT 17.0 SEC (12.0-15.0) H 11/10/18 06:15 INR 1.37 (0.83-1.16) H 11/10/18 06:15 Elevated wbc due to steroids. Formal path pending. Prior terminal ileum bx negative. Physical Exam - Physical Exam General Appearance: WD/WN, alert, no apparent distress EENT: PERRL/EOMI, normal ENT inspection, pharynx normal, TMs normal Neck: non-tender, full range of motion, supple, normal inspection Respiratory: chest non-tender, lungs clear, normal breath sounds Cardiac/Chest: normal peripheral pulses, regular rate, rhythm Peripheral Pulses: 2+: carotid (R), carotid (L), femoral (R), femoral (L), dorsalis-pedis (R), dorsalis-pedis (L) Abdomen: normal bowel sounds, soft, No non-tender (Epigastric tenderness. Bloated.) Pelvic Exam: deferred Rectal: deferred Back: Normal inspection Skin: normal color, warm/dry Lymphatic: no adenopathy Extremities: normal range of motion, non-tender, normal inspection, normal capillary refill Neuro/Psych: no motor/sensory deficits, alert, normal mood/affect, oriented x 3 ICD10 Worksheet Patient Problems: Problems Problem Status Onset Abdominal pain Acute Colitis Acute
--- NOTE | 2018-11-15 15:45 | HOSPPROG ---
Hospitalist Progress Note Assessment/Plan: 33 yo F w likely crohn's here w prolonged, complex stay. Crohn's: colonoscopy results s/o crohn's s/p bx on solumedrol and budesonide no biologic until tissue dx and improved c diff GI recommending continuing IV steroids and Pentasa, may be able to switch to PO Prednisone 30 mg BID tomorrow D/c TPN per GI, patient is tolerating diet well this AM Also d/c dicyclomine, simethicone, and changed PPI to PO cdiff: severe but improving benign abdominal exam continue po vanc (total 14 day course); dc flagyl 10/25 nausea nausea: refractory to phenergan and zofran trial of ativan dc flagyl 11/14 improved sepsis: septic physiology has resolved proph: lmwh dispo: icu Objective: Vital Signs Temp Pulse Resp BP Pulse Ox 36.4 C 61 16 123/86 H 96 11/15/18 08:00 11/15/18 08:00 11/15/18 08:00 11/15/18 08:00 11/15/18 08:00 Laboratory Results 11/15/18 06:20 11/15/18 06:20 11/14/18 11/15/18 11/16/18 05:59 05:59 05:59 Intake Total 1852 3040 Output Total 2200 Balance -348 3040 PT 17.0 SEC (12.0-15.0) H 11/10/18 06:15 INR 1.37 (0.83-1.16) H 11/10/18 06:15 ICD10 Worksheet Patient Problems: Problems Problem Status Onset Abdominal pain Acute Colitis Acute
[2018-11-15] MEDS ORDERED: METOCLOPRAMIDE 10 MG/2 ML VIAL ONE (20:45)
[2018-11-15] MEDS: ONDANSETRON 4 MG/2 ML VIAL IVP PRN (20:55)
[2018-11-15] MEDS: MELATONIN 3 MG TAB PO PRN (20:59)
[2018-11-15] MEDS: LORazepam 2 MG/ML INJ IVP PRN (20:59)
--- NOTE | 2018-11-16 01:28 | GOP ---
[f rep st] OPERATIVE REPORT DATE OF OPERATION: 11/06/2018 SURGEON: Agustin Disla MD [employer]ILDING: Eli Petty NP. PREOPERATIVE DIAGNOSIS: Recurrent small bowel obstruction. POSTOPERATIVE DIAGNOSIS: Obstipation. PROCEDURE PERFORMED: Diagnostic laparoscopy. FINDINGS: The patient was found to have no evidence of any intraabdominal adhesions or other etiology for a small bowel obstruction. She was noted to have hard stool in the right colon as well as for approximately 12 inches up the terminal ileum with golf ball-sized hard pieces of stool. The terminal ileum was slightly inflamed, but there was no fat creeping or perforation or purulence to suggest Crohn's disease or other inflammatory bowel problems, and the bowel was quite soft and supple. The proximal bowel, however, was moderately dilated, and the bowel was run from one end to the other with no evidence of adhesions or tumors or other etiologies. DESCRIPTION OF PROCEDURE: The patient was brought to the operating room where she received satisfactory general endotracheal anesthesia. She was placed in the supine position and prepped and draped in the usual sterile fashion. A periumbilical incision was made. A Veress needle was inserted. Pneumoperitoneum was established. A trocar was introduced, laparoscope introduced. Good visualization was obtained. She clearly had dilated bowel all the way to the cecum. Two other trocars were placed in the lower abdomen under direct vision, and the bowel was gently evaluated with the above-noted findings. No adhesions required lysis. There was an appendix which was not inflamed. Tubes and ovaries appeared to be normal. There was no purulence or bleeding. There was significant fluid in the abdominal cavity. Thorough evaluation of the bowel was done laparoscopically with no indications for any need to open up for resection. The wound was irrigated. Hemostasis was assured. Trocars were removed under direct vision. Trocar sites were closed with 4-0 Monocryl subcuticular stitch for the skin and all layers infiltrated with 0.5% Marcaine. Blood loss was negligible. She was taken to recovery room in good condition. There were no complications. /[id number]/MODL MTDD
[2018-11-16 05:16] LABS: PLATELET COUNT 222 10^3/uL (150-400)
[2018-11-16] MEDS: INSULIN REGULAR, HUMAN 100 UNIT/1 ML VIAL LOW SC SCH ×3 (05:43→18:51)
[2018-11-16] MEDS: methylPREDNISolone SOD SUCC 40 MG/ML VIAL IVP SCH ×3 (06:11→22:25)
[2018-11-16] MEDS: MESALAMINE 250 MG PO SCH ×4 (06:11→22:26)
[2018-11-16] MEDS: VANCOMYCIN 125 MG/2.5 ML UDL PO SCH ×4 (06:11→22:25)
[2018-11-16] MEDS: LEVOTHYROXINE 25 MCG TAB PO SCH (06:11)
[2018-11-16] MEDS: PANTOPRAZOLE SODIUM 40 MG TAB PO SCH ×2 (08:13→22:27)
[2018-11-16] MEDS: SENNOSIDES/DOCUSATE SODIUM TAB PO SCH ×2 (08:13→22:26)
[2018-11-16] MEDS: ENOXAPARIN 40 MG/0.4 ML SYR SC SCH (08:14)
[2018-11-16] MEDS ORDERED: NS 1,000 ML IV SCH (11:30)
--- NOTE | 2018-11-16 12:20 | SOAPPROG ---
SOAP Progress Note Assessment/Plan: Assessment: Assessment/Plan: 33 y/o F admitted with abdominal pain/n/v. S/p ex laparoscopy with findings of small bowel dilated 2/2 fecal impaction at ileum. S/p colonoscopy and upper endoscopy. Findings consistent with Crohn's and ulcer at TI. Solumedrol restarted C. diff.-continue vancomycin Clears only until feeling better after eating, then adat. I think we can hold off on TPN another 24 hours and see if she continues to have return of bowel function S: Started having nausea and cramping after eating yesterday. + flatus this am. O: Alert and oriented, NAD Afebrile VSS no increased WOB, lungs CTA HR regular Abdomen: Soft, nontender, incision sites cdi. Much less distended. +BS Plan: 11/15/18 11:09 11/15/18 11:10 11/15/18 11:15 11/15/18 11:19 11/15/18 13:40 11/16/18 12:17 11/16/18 12:24 Objective: Vital Signs Temp Pulse Resp BP Pulse Ox 36.6 C 58 L 20 95/57 L 96 11/16/18 08:00 11/16/18 11:19 11/16/18 11:19 11/16/18 11:19 11/16/18 11:19 Microbiology 11/10/18 11:55 Blood Culture - Final Blood 11/10/18 10:45 Blood Culture - Final Blood Laboratory Results 11/16/18 05:05 11/15/18 06:20 11/15/18 11/16/18 11/17/18 05:59 05:59 05:59 Intake Total 3040 1585 Balance 3040 1585 PT 17.0 SEC (12.0-15.0) H 11/10/18 06:15 INR 1.37 (0.83-1.16) H 11/10/18 06:15 ICD10 Worksheet Patient Problems: Problems Problem Status Onset Abdominal pain Acute Colitis Acute
--- NOTE | 2018-11-16 12:33 | SOAPPROG ---
SOAP Progress Note Assessment/Plan: Assessment/Plan: 1. Large ileal ulceration, with prior obstructive symptoms. Some obstructive symptoms last night, but significantly better today, with two bms, passing gas, less bloating, hungry. - cont IV steroids for today; tomorrow, may be able to switch to prednisone 30 mg bid - cont pentasa - resume low fiber diet, but she knows to be more lidia - BC I.V. - d/c daily routine blood work - path pending 2. c diff positive. Some nonspecific colitis mentioned on her colonoscopy, but no pseudomembranes mentioned. Path pending. May be a false positive only, but agree with empiric treatment for 14 days. No retesting. 3. Epigastric pain x [address] unremarkable, as well as EGD two days prior. Nl lipase. ? nonspecific or a nondetected proximal small bowel ulcer. If so, should hopefully resolve with time and the above current management. 11/16/18 12:29 Subjective: cc: small bowel ulceration Rougher time last night, with increased bloating. Today, however, doing better , with two bowel movements, passing gas, less bloating. Hungry. No rigors, chills, sweats. Objective: Vital Signs Temp Pulse Resp BP Pulse Ox 36.6 C 58 L 20 95/57 L 96 11/16/18 08:00 11/16/18 11:19 11/16/18 11:19 11/16/18 11:19 11/16/18 11:19 Microbiology 11/10/18 11:55 Blood Culture - Final Blood 11/10/18 10:45 Blood Culture - Final Blood Laboratory Results 11/16/18 05:05 11/15/18 06:20 11/15/18 11/16/18 11/17/18 05:59 05:59 05:59 Intake Total 3040 1585 Balance 3040 1585 PT 17.0 SEC (12.0-15.0) H 11/10/18 06:15 INR 1.37 (0.83-1.16) H 11/10/18 06:15 Path pending Physical Exam - Physical Exam General Appearance: WD/WN, alert, no apparent distress EENT: PERRL/EOMI, normal ENT inspection, pharynx normal, TMs normal Neck: non-tender, full range of motion, supple, normal inspection Respiratory: chest non-tender, lungs clear, normal breath sounds Cardiac/Chest: normal peripheral pulses, regular rate, rhythm Peripheral Pulses: 2+: carotid (R), carotid (L), femoral (R), femoral (L), dorsalis-pedis (R), dorsalis-pedis (L) Abdomen: normal bowel sounds, soft, No non-tender (moderate epigastric tenderness) Pelvic Exam: deferred Rectal: deferred Back: Normal inspection Skin: normal color, warm/dry Lymphatic: no adenopathy Extremities: normal range of motion, non-tender, normal inspection, normal capillary refill Neuro/Psych: no motor/sensory deficits, alert, normal mood/affect, oriented x 3 ICD10 Worksheet Patient Problems: Problems Problem Status Onset Abdominal pain Acute Colitis Acute
--- NOTE | 2018-11-16 13:41 | HOSPPROG ---
Hospitalist Progress Note Assessment/Plan: 33 yo F w likely crohn's here w prolonged, complex stay. Crohn's: colonoscopy results s/o crohn's s/p bx on solumedrol and budesonide no biologic until tissue dx and improved c diff GI recommending continuing IV steroids and Pentasa, may be able to switch to PO Prednisone 30 mg BID tomorrow D/c TPN per GI, patient is tolerating diet well this AM Also d/c dicyclomine, simethicone, and changed PPI to PO cdiff: severe but improving benign abdominal exam continue po vanc (total 14 day course); dc flagyl 10/25 nausea nausea: refractory to phenergan and zofran trial of ativan dc flagyl 11/14 improved sepsis: septic physiology has resolved proph: lmwh dispo: Pending clinical course Subjective: Patient reports increased distention, bloating yesterday evening. Improved as of this AM with passing gas and had a BM Objective: Vital Signs Temp Pulse Resp BP Pulse Ox 36.6 C 58 L 20 95/57 L 96 11/16/18 08:00 11/16/18 11:19 11/16/18 11:19 11/16/18 11:19 11/16/18 11:19 Microbiology 11/10/18 11:55 Blood Culture - Final Blood 11/10/18 10:45 Blood Culture - Final Blood Laboratory Results 11/16/18 05:05 11/15/18 06:20 11/15/18 11/16/18 11/17/18 05:59 05:59 05:59 Intake Total 3040 1585 Balance 3040 1585 PT 17.0 SEC (12.0-15.0) H 11/10/18 06:15 INR 1.37 (0.83-1.16) H 11/10/18 06:15 - Physical Exam Constitutional: no apparent distress Eyes: PERRL Ears, Nose, Mouth, Throat: moist mucous membranes Cardiovascular: regular rate and rhythym Respiratory: no respiratory distress Gastrointestinal: tenderness, distension, No guarding, No rebound Genitourinary: no bladder fullness Skin: warm Musculoskeletal: full muscle strength Neurologic: AAOx3 Psychiatric: interacting appropriately ICD10 Worksheet Patient Problems: Problems Problem Status Onset Abdominal pain Acute Colitis Acute
[2018-11-16] MEDS: NS 1,000 ML IV SCH (15:28)
[2018-11-16] MEDS ORDERED: D50W 25 GM/50 ML SYR IVP PRN (20:36)
[2018-11-16] MEDS: LORazepam 2 MG/ML INJ IVP PRN (22:25)
[2018-11-16] MEDS: MELATONIN 3 MG TAB PO PRN (22:26)
[2018-11-17] MEDS: VANCOMYCIN 125 MG/2.5 ML UDL PO SCH ×4 (05:53→23:06)
[2018-11-17] MEDS: MESALAMINE 250 MG PO SCH ×4 (05:53→23:27)
[2018-11-17] MEDS: NS 1,000 ML IV SCH (05:53)
[2018-11-17] MEDS: methylPREDNISolone SOD SUCC 40 MG/ML VIAL IVP SCH ×3 (05:53→23:07)
[2018-11-17] MEDS: LEVOTHYROXINE 25 MCG TAB PO SCH (05:53)
[2018-11-17] MEDS: INSULIN LISPRO 100 UNIT/ML SC SCH ×3 (08:54→18:28)
--- NOTE | 2018-11-17 09:36 | SOAPPROG ---
SOAP Progress Note Assessment/Plan: Assessment/plan: 33 y/o F admitted with abdominal pain/n/v. S/p ex laparoscopy with findings of small bowel dilated 2/2 fecal impaction at ileum. S/p colonoscopy and upper endoscopy. Findings consistent with Crohn's. IV steroids started. Plan to transition to oral steroids this week. C. diff. Frequency of BMs has decreased. Still passing gas. Flagyl d/c'ed. Septic shock. Unclear etiology. Resolved. TPN discontinued. Low fiber diet Ok to buff cap IV. Dispo: pending clinical course. Likely home this week. S: Feeling much better. Nausea and abdominal cramps almost completely resolved. Tolerating solid food. Still having loose BMs, but less frequent O: Alert and oriented Afebrile VSS RRR CTAB, no increased WOB Abdomen: Soft, nontender, incision sites cdi. Still distended, but improved. 11/17/18 09:33 Objective: Vital Signs Temp Pulse Resp BP Pulse Ox 36.6 C 45 L 18 132/82 H 95 11/17/18 08:00 11/17/18 08:00 11/17/18 08:00 11/17/18 08:00 11/17/18 08:00 Microbiology 11/10/18 11:55 Blood Culture - Final Blood 11/10/18 10:45 Blood Culture - Final Blood Laboratory Results 11/16/18 05:05 11/15/18 06:20 11/16/18 11/17/18 11/18/18 05:59 05:59 05:59 Intake Total 1585 900 Balance 1585 900 PT 17.0 SEC (12.0-15.0) H 11/10/18 06:15 INR 1.37 (0.83-1.16) H 11/10/18 06:15 ICD10 Worksheet Patient Problems: Problems Problem Status Onset Abdominal pain Acute Colitis Acute
[2018-11-17] MEDS: PANTOPRAZOLE SODIUM 40 MG TAB PO SCH (09:43)
[2018-11-17] MEDS: ENOXAPARIN 40 MG/0.4 ML SYR SC SCH (09:43)
[2018-11-17] MEDS: SENNOSIDES/DOCUSATE SODIUM TAB PO SCH (09:43)
--- NOTE | 2018-11-17 10:40 | SOAPPROG ---
[facility]LES Progress Note Assessment/Plan: Assessment: CALLED TO SEE PATIENT TONIGHT FOR INCREASING ABDOMINAL PAIN AND DISTENTION. PATIENT IS BEEN HER OFF AND ON FOR NEARLY 2 WEEKS WITH CRAMPY ABDOMINAL PAIN. SHE IS PRESENTLY UNDERGOING A GOLYTELY BOWEL PREP WHICH IS CAUSED HER SEVERE INCREASING DISCOMFORT. X-RAYS HAVE SUGGESTED SMALL-BOWEL OBSTRUCTION BUT SHE DOES HAVE A LARGE AMOUNT OF FECAL MATERIAL STILL IN HER COLON BUT IS NOT HAD A REAL BOWEL MOVEMENT FOR SEVERAL DAYS AND ONLY MINIMAL FLATUS. NG TUBE WAS JUST PLACED A DRAINING ALMOST A L OF FLUID BUT APPEARS TO BE MOSTLY GOLYTELY ALTHOUGH IT IS BILE TINGED. SHE HAS BEEN AFEBRILE AND WITH NO TACHYCARDIA OR VITAL SIGN CHANGES. HER LACTIC ACID IS NORMAL. WHITE COUNT IS QUITE ELEVATED BUT SHE HAS BEEN ON IV STEROIDS GENERAL: SHE IS AFEBRILE AND ALERT A BUT HAVING CRAMPY ABDOMINAL PAIN HEENT NONICTERIC WITH NG TUBE IN PLACE, NO ADENOPATHY CHEST CLEAR COR REGULAR RHYTHM ABDOMEN SLIGHTLY DISTENDED DIFFUSELY MILDLY TENDER BUT SOFT WITH NO REBOUND OR GUARDING AND NO OBVIOUS HERNIAS IMPRESSION: DIAGNOSIS IS STILL UNCLEAR SHE DOES NOT APPEAR TO ACTUALLY HAVE INFLAMMATORY BOWEL DISEASE SINCE SHE HAS NOT RESPONDED WELL TO STEROIDS AND HER BIOPSIES WERE AND NEGATIVE. SHE COULD HAVE SOME ADHESIONS SECONDARY TO HER PREVIOUS UTERINE ARTERY EMBOLIZATION BUT SHE HAS HAD NO PREVIOUS INTRA- ABDOMINAL SURGERY. IS PERPLEXING THAT SHE HAS NOT IMPROVED IN 2 WEEKS WITH VARIOUS TREATMENTS INCLUDING CATHARSIS, STEROIDS AND OTHER DIAGNOSTIC TESTS I WOULD RECOMMEND CONTINUED NG SUCTION AND LAPAROSCOPY IN THE A.M. IF SHE IS NOT SIGNIFICANTLY IMPROVED. IN HER PRESENT STATE I DOUBT THAT WE COULD DO ANY FURTHER DIAGNOSTIC SUCH SMALL-BOWEL FOLLOW-THROUGH OR REPEAT COLONOSCOPY. RISKS AND OPTIONS BEEN FULLY DISCUSSED AND WE WILL RECHECK IN 3 4 HR. Plan: POSSIBLE LAPAROSCOPY IN THE A.M. OR SOONER IF SHE DETERIORATES 11/06/18 11:38 11/06/18 11:46 PATIENT SOMEWHAT BETTER OVERNIGHT ON NG SUCTION BUT MINIMAL OUTPUT FROM THE NG. SHE REMAINS AFEBRILE WITH STABLE VITAL SIGNS ABDOMEN IS MUCH SOFTER AND LESS TENDER WITH ACTIVE BOWEL SOUNDS. 2 WAY ABDOMEN X-RAY IS STILL PENDING. THE PLAN AT THIS POINT IS TO STILL CONSIDER LAPAROSCOPY DEPENDING ON THE RESULTS OF THE 2 WAY ABDOMEN. RISKS AND OPTIONS OF AGAIN BEEN FULLY DISCUSSED WITH THE PATIENT AND HER 11/06/18 11:48 PATIENT'S CONDITION IS NOT CHANGED MUCH. STILL NO FLATUS OR BOWEL MOVEMENTS BUT LESS PAIN AND ACTIVE BOWEL SOUNDS. RISKS AND OPTIONS BEEN FULLY DISCUSSED. HOWEVER SHE WISHES TO BE TRANSFERRED TO THE [facility] SHE KNOWS A SURGEON THERE AND THAT IS IN THE PROCESS OF BEING FACILITATED. SHE WILL NEED A COPY OF HER IMAGING STUDIES 11/17/18 10:39 Much improved today with slight distention but afebrile/eating well/abdomen soft nontender with active bowel sounds/less diarrhea Please refer to my nurse practitioner's note, Eli Petty Objective: Vital Signs Temp Pulse Resp BP Pulse Ox 36.6 C 45 L 18 132/82 H 95 11/17/18 08:00 11/17/18 08:00 11/17/18 08:00 11/17/18 08:00 11/17/18 08:00 Microbiology 11/10/18 11:55 Blood Culture - Final Blood 11/10/18 10:45 Blood Culture - Final Blood Laboratory Results 11/16/18 05:05 11/15/18 06:20 11/16/18 11/17/18 11/18/18 05:59 05:59 05:59 Intake Total 1585 900 Balance 1585 900 PT 17.0 SEC (12.0-15.0) H 11/10/18 06:15 INR 1.37 (0.83-1.16) H 11/10/18 06:15 ICD10 Worksheet Patient Problems: Problems Problem Status Onset Abdominal pain Acute Colitis Acute
[2018-11-17 11:09] LABS: BRUCELLA AB IGM Negative (Negative); BRUCELLA ANTIBODY IGG Negative (Negative); INTERPRETATION See Comments
--- NOTE | 2018-11-17 11:35 | ASMTCMCOM ---
CM Note CM Note Notes: Pts case discussed w/ Dr. Todd. Pt does not have any d/c needs. Pt will d/c independent when medically stable. No therapies ordered. CM available for changes. Plan: Independent Date Signed: 11/17/2018 11:33 AM Electronically Signed By:MORTEZA Duque
--- NOTE | 2018-11-17 12:40 | SOAPPROG ---
SOAP Progress Note Assessment/Plan: Assessment/Plan: 1. Large ileal ulceration, with prior obstructive symptoms. Continues to do better. - cont IV steroids for one more day; tomorrow, should be able to switch to prednisone 30 mg bid. Will then watch her 1 - 2 days more in-house. - cont pentasa - d/c IVF - change sennokot to daily 2. c diff positive. Some nonspecific colitis mentioned on her colonoscopy, but no pseudomembranes mentioned. Path without pseudomembranes. May be a false positive only, but agree with empiric treatment for 14 days. No retesting. 3. Epigastric pain x [address] unremarkable, as well as EGD two days prior. Nl lipase. ? dyspepsia from steroids, or a nondetected proximal small bowel ulcer. If the former, PPI bid has not seemed to help. - d/c PPI, try sucralfate in liquid form bid instead. 11/17/18 12:36 Subjective: cc: ileal ulcer Continues to do better. 4 bm/24 hours. Tolerating po. Epigastric pain about the same. Less bloating. No rigors, chills. Objective: Vital Signs Temp Pulse Resp BP Pulse Ox 36.6 C 45 L 18 132/82 H 95 11/17/18 08:00 11/17/18 08:00 11/17/18 08:00 11/17/18 08:00 11/17/18 08:00 Microbiology 11/10/18 11:55 Blood Culture - Final Blood 11/10/18 10:45 Blood Culture - Final Blood Laboratory Results 11/16/18 05:05 11/15/18 06:20 11/16/18 11/17/18 11/18/18 05:59 05:59 05:59 Intake Total 1585 900 Balance 1585 900 PT 17.0 SEC (12.0-15.0) H 11/10/18 06:15 INR 1.37 (0.83-1.16) H 11/10/18 06:15 Path of ulceration without granulomas, and without necessarily chronicity. Duodenal, eosophageal, gastric bx negative. Physical Exam - Physical Exam General Appearance: WD/WN, alert, no apparent distress EENT: PERRL/EOMI, normal ENT inspection, pharynx normal, TMs normal Neck: non-tender, full range of motion, supple, normal inspection Respiratory: chest non-tender, lungs clear, normal breath sounds Cardiac/Chest: normal peripheral pulses, regular rate, rhythm Peripheral Pulses: 2+: carotid (R), carotid (L), femoral (R), femoral (L), dorsalis-pedis (R), dorsalis-pedis (L) Abdomen: normal bowel sounds, non-tender, soft Pelvic Exam: deferred Rectal: deferred Back: Normal inspection Skin: normal color, warm/dry Lymphatic: no adenopathy Extremities: normal range of motion, non-tender, normal inspection, normal capillary refill Neuro/Psych: no motor/sensory deficits, alert, normal mood/affect, oriented x 3 ICD10 Worksheet Patient Problems: Problems Problem Status Onset Abdominal pain Acute Colitis Acute
--- NOTE | 2018-11-17 12:43 | PCMIDPN ---
Assessment/Plan: Assessment: 33-year-old woman with C diff colitis complicating possible Crohn' s disease. Continued improvement with ongoing loose stools; being maintained on stool softeners to limit recurrence of bowel obstruction. Decrease oral vancomycin to standard dosing to finish therapy. No contraindication to starting TNF-alpha blockade prior to finishing therapy for C diff colitis if otherwise indicated. 1. Severe C diff colitis, improved 2. Possible Crohn's disease; Improving with systemic steroids 3. Immunocompromised patient due to corticosteroid use systemically 4. Travel history with approximately 3 [place] in [place] Plan: 1. Decrease oral vancomycin to 125mg PO q6 hours; Stop date 11/26/18 2. Negative testing: Coccidioides antibodies, Brucella antibody, Histoplasma urine antigen 3. Pending tests: T Spot TB Flex Schmidt MD Infectious Diseases 11/17/18 12:39 Subjective: No fever or chills. Denies nausea, rash. Appetite improving. Ambulating without difficulty. Loose stools continue but no abdominal pain. Eating more solid foods and tolerating well. No new concerns today. Objective: Vital Signs Temp Pulse Resp BP Pulse Ox 36.6 C 45 L 18 132/82 H 95 11/17/18 08:00 11/17/18 08:00 11/17/18 08:00 11/17/18 08:00 11/17/18 08:00 Microbiology 11/10/18 11:55 Blood Culture - Final Blood 11/10/18 10:45 Blood Culture - Final Blood Laboratory Results 11/16/18 05:05 11/15/18 06:20 11/16/18 11/17/18 11/18/18 05:59 05:59 05:59 Intake Total 1585 900 Balance 1585 900 ESR 11 MM/HR (0-20) 11/11/18 10:20 C-Reactive Protein 337.8 mg/L (<10.0) H 11/11/18 11:30 Medications Generic Name Dose Route Start Last Admin Trade Name Freq PRN Reason Stop Dose Admin Vancomycin HCl 125 mg 11/17/18 12:00 Vancocin Oral Liquid PO 11/26/18 06:00 QID ALICIA Protocol Laboratory Tests 11/13/18 11/14/18 11/15/18 17:55 06:15 06:20 WBC 16.37 H Hgb 11.2 L Plt Count 218 Absolute Seg Neuts 12.06 H Absolute Lymphocytes 1.33 Brucella IgG Antibody Negative Brucella IgM Antibody Negative Coccidioides Ab (CF) Pending Coccidioides IgM Titer Pending Cryptococcus Ag Screen Negative Urine Histoplasma Ag 0.00 TB Blood Test (T-Spot) 11/16/18 11/17/18 05:05 04:30 WBC 14.00 H Hgb 11.0 L Plt Count 222 Absolute Seg Neuts 10.78 H Absolute Lymphocytes 0.84 L Brucella IgG Antibody Brucella IgM Antibody Coccidioides Ab (CF) Coccidioides IgM Titer Cryptococcus Ag Screen Urine Histoplasma Ag TB Blood Test (T-Spot) Pending - Physical Exam General Appearance: no apparent distress, thin, non-toxic EENT: No scleral icterus Respiratory: No accessory muscle use Neck: full range of motion Skin: No erythema Neuro/Psych: alert, normal mood/affect, oriented x 3, No confused - Time Spent With Patient Time Spent with Patient: greater than 25 minutes Time Spent with Patient: Greater than 25 minutes spent on this patients care, greater than 50% of time spent counseling, educating, and coordinating care regarding the above mentioned plan. ICD10 Worksheet Patient Problems: Problems Problem Status Onset Abdominal pain Acute Colitis Acute
--- NOTE | 2018-11-17 16:09 | HOSPPROG ---
Hospitalist Progress Note Assessment/Plan: 33 yo F w likely crohn's here w prolonged, complex stay. Crohn's: colonoscopy results s/o crohn's s/p bx on solumedrol and budesonide no biologic until tissue dx and improved c diff GI recommending continuing IV steroids and Pentasa, may be able to switch to PO Prednisone 30 mg BID tomorrow D/c TPN per GI, patient is tolerating diet well this AM Also d/c dicyclomine, simethicone, and changed PPI to PO cdiff: severe but improving benign abdominal exam continue po vanc, dose decreased to 125mg PO q6 hours per ID today Stop date 11/26/18 (total 14 day course) dc flagyl 10/25 nausea nausea: refractory to phenergan and zofran trial of ativan dc flagyl 11/14 improved sepsis: septic physiology has resolved proph: lmwh dispo: Pending clinical course Subjective: Patient reports loose BMs overnight, passing gas, no n/v this AM Objective: Vital Signs Temp Pulse Resp BP Pulse Ox 35.6 C L 72 18 98/67 L 93 11/17/18 12:00 11/17/18 12:00 11/17/18 12:00 11/17/18 12:00 11/17/18 12:00 Laboratory Results 11/16/18 05:05 11/15/18 06:20 11/16/18 11/17/18 11/18/18 05:59 05:59 05:59 Intake Total 1585 900 Balance 1585 900 PT 17.0 SEC (12.0-15.0) H 11/10/18 06:15 INR 1.37 (0.83-1.16) H 11/10/18 06:15 - Physical Exam Constitutional: no apparent distress Eyes: PERRL Ears, Nose, Mouth, Throat: moist mucous membranes Cardiovascular: regular rate and rhythym Respiratory: no respiratory distress Gastrointestinal: distension, No tenderness Skin: warm Musculoskeletal: full muscle strength Neurologic: AAOx3 Psychiatric: interacting appropriately ICD10 Worksheet Patient Problems: Problems Problem Status Onset Abdominal pain Acute Colitis Acute
[2018-11-17] MEDS: SUCRALFATE 1 GM/10 ML UDCUP PO SCH (23:05)
[2018-11-17] MEDS: LORazepam 2 MG/ML INJ IVP PRN (23:13)
[2018-11-17] MEDS: MELATONIN 3 MG TAB PO PRN (23:28)
[2018-11-18] MEDS: MESALAMINE 250 MG PO SCH ×4 (05:24→22:07)
[2018-11-18] MEDS: LEVOTHYROXINE 25 MCG TAB PO SCH (05:24)
[2018-11-18] MEDS: methylPREDNISolone SOD SUCC 40 MG/ML VIAL IVP SCH (05:25)
[2018-11-18] MEDS: VANCOMYCIN 125 MG/2.5 ML UDL PO SCH ×4 (05:25→22:08)
--- NOTE | 2018-11-18 06:04 | GCON ---
[f rep st] CONSULTATION DATE OF CONSULTATION: 11/07/2018 HISTORY OF PRESENT ILLNESS: The patient is a 33-year-old female who was recently discharged and has been readmitted for the last 4 days for a small bowel obstruction, which she is on and off improved. She was seen on her last admission by a supervisory forester where a colonoscopy was suggestive of Director [place] hn disease. However, the biopsies came back negative. She was treated at some point with steroids a nd seemed to improve, but now has worsened again and is readmitted for a small bowel obstruction. Sammie rice has thickness of the terminal ileum on her CT scan, but she has not been able to have a small-bowel follow-through or MR enterography. Her sed rates and CRPs have been normal as have her white counts and she has been afebrile, but she has been unable to eat much and has been plagued with some diarrh ea. PAST MEDICAL HISTORY: Includes hypothyroidism and childbirth. She did have to have chemoembolizatio n of a uterine artery for bleeding approximately 3 months ago. FAMILY HISTORY: Negative and noncontributory. SOCIAL HISTORY: Reveals she does not smoke. She is and a recently born baby. MEDICATIONS: None but vitamins. ALLERGIES: None. PHYSICAL EXAMINATION: GENERAL: Reveals an alert and cooperative 33-year-old female in no acute dist ress. HEAD AND NECK: Benign without icterus, adenopathy, or oral lesions. CHEST: Clear to auscult ation and percussion. CARDIAC: Regular rhythm without murmurs. ABDOMEN: Soft, slightly distended, more tender in the epigastrium than anywhere. She does have bowel sounds. There are no obvious her nias. EXTREMITIES: Benign, full range of motion, full pulses. NEUROLOGIC: Physiologic. IMPRESSION: Recurrent small bowel obstructions of uncertain etiology, but possibly related to Crohn disease. The possibility of some adhesive problems secondary to her chemoembolization procedure has been considered. PLAN: Continue observation and nasogastric suction. Consider laparoscopy if she is not improving. We will follow her with you. /[id number]/MODL
[2018-11-18] MEDS: INSULIN LISPRO 100 UNIT/ML SC SCH (08:25)
[2018-11-18] MEDS ORDERED: PROMETHAZINE HCL 25 MG/ML INJ IVP PRN (09:19)
[2018-11-18] MEDS: SENNOSIDES/DOCUSATE SODIUM TAB PO SCH (09:25)
[2018-11-18] MEDS: SUCRALFATE 1 GM/10 ML UDCUP PO SCH ×2 (09:25→22:08)
[2018-11-18] MEDS: ENOXAPARIN 40 MG/0.4 ML SYR SC SCH (09:27)
--- NOTE | 2018-11-18 11:47 | SOAPPROG ---
SOAP Progress Note Assessment/Plan: Assessment/Plan: 1. Large ileal ulceration, with prior obstructive symptoms. Continues to do better. - prednisone 30 mg bid. Will then watch her 1 - 2 days more in-house. - cont pentasa - no biologic while in-house (I discussed this with Dr. Niño, her outpt. G.I. doc). 2. c diff positive. Some nonspecific colitis mentioned on her colonoscopy, but no pseudomembranes mentioned. Path without pseudomembranes. May be a false positive only, but agree with empiric treatment for 14 days. No retesting. 3. Epigastric pain x [address] unremarkable, as well as EGD two days prior. Nl lipase. ? dyspepsia from steroids, or a nondetected proximal small bowel ulcer. No benefit yet from sucralfate. 11/18/18 11:43 Subjective: cc: ileal ulcer Continues to do well, with a small b.m. today, tolerating p.o. No benefit yet with sucralfate, in terms of her epigastric pain. No rigors, chills. Objective: Vital Signs Temp Pulse Resp BP Pulse Ox 36.9 C 47 L 14 122/68 H 97 11/18/18 08:00 11/18/18 08:00 11/18/18 08:00 11/18/18 08:00 11/18/18 08:00 Laboratory Results 11/16/18 05:05 11/15/18 06:20 11/17/18 11/18/18 11/19/18 05:59 05:59 05:59 Intake Total 900 1290 Balance 900 1290 PT 17.0 SEC (12.0-15.0) H 11/10/18 06:15 INR 1.37 (0.83-1.16) H 11/10/18 06:15 11/13 path of ulcer without granulomas. Biopsies otherwise unremarkable ( yolanda species mentioned on esophageal bx, but the esophagus was actually normal, so suspect commensal organism only, and not causing disease). Physical Exam - Physical Exam General Appearance: WD/WN, alert, no apparent distress EENT: PERRL/EOMI, normal ENT inspection, pharynx normal, TMs normal Neck: non-tender, full range of motion, supple, normal inspection Respiratory: chest non-tender, lungs clear, normal breath sounds Cardiac/Chest: normal peripheral pulses, regular rate, rhythm Peripheral Pulses: 2+: carotid (R), carotid (L), femoral (R), femoral (L), dorsalis-pedis (R), dorsalis-pedis (L) Abdomen: normal bowel sounds, non-tender, soft (less distended!) Pelvic Exam: deferred Rectal: deferred Back: Normal inspection Skin: normal color, warm/dry Lymphatic: no adenopathy Extremities: normal range of motion, non-tender, normal inspection, normal capillary refill Neuro/Psych: no motor/sensory deficits, alert, normal mood/affect, oriented x 3 ICD10 Worksheet Patient Problems: Problems Problem Status Onset Abdominal pain Acute Colitis Acute
--- NOTE | 2018-11-18 12:59 | HOSPPROG ---
Hospitalist Progress Note Assessment/Plan: 33 yo F w likely crohn's here w prolonged, complex stay. Crohn's: colonoscopy results s/o crohn's s/p bx on solumedrol and budesonide no biologic until tissue dx and improved c diff GI recommending continuing steroids and Pentasa, switched to PO Prednisone 30 mg BID today D/c TPN per GI, patient is tolerating diet well this AM Also d/c dicyclomine, simethicone, and changed PPI to PO cdiff: severe but improving benign abdominal exam continue po vanc, dose decreased to 125mg PO q6 hours per ID on 11/17 Stop date 11/26/18 (total 14 day course) dc flagyl 10/25 nausea nausea: refractory to phenergan and zofran trial of ativan dc flagyl 11/14 improved sepsis: septic physiology has resolved proph: lmwh dispo: Pending clinical course Subjective: Patient reports BM this AM, tolerating breakfast well Objective: Vital Signs Temp Pulse Resp BP Pulse Ox 36.5 C 89 16 90/66 L 96 11/18/18 11:46 11/18/18 11:46 11/18/18 11:46 11/18/18 12:45 11/18/18 11:46 Laboratory Results 11/16/18 05:05 11/15/18 06:20 11/17/18 11/18/18 11/19/18 05:59 05:59 05:59 Intake Total 900 1290 Balance 900 1290 PT 17.0 SEC (12.0-15.0) H 11/10/18 06:15 INR 1.37 (0.83-1.16) H 11/10/18 06:15 - Physical Exam Constitutional: no apparent distress Eyes: PERRL Ears, Nose, Mouth, Throat: moist mucous membranes Cardiovascular: regular rate and rhythym Respiratory: no respiratory distress Gastrointestinal: tenderness, distension Skin: warm Musculoskeletal: full muscle strength Neurologic: AAOx3 Psychiatric: interacting appropriately ICD10 Worksheet Patient Problems: Problems Problem Status Onset Abdominal pain Acute Colitis Acute
[2018-11-18] MEDS: predniSONE 20 MG TAB PO SCH (17:39)
[2018-11-18] MEDS ORDERED: predniSONE 20 MG TAB PO SCH (18:00)
[2018-11-18] MEDS: LORazepam 2 MG/ML INJ IVP PRN (22:09)
[2018-11-18] MEDS: MELATONIN 3 MG TAB PO PRN (22:30)
[2018-11-19] MEDS: MESALAMINE 250 MG PO SCH ×4 (06:03→22:04)
[2018-11-19] MEDS: LEVOTHYROXINE 25 MCG TAB PO SCH (06:03)
[2018-11-19] MEDS: VANCOMYCIN 125 MG/2.5 ML UDL PO SCH ×4 (06:04→22:03)
[2018-11-19] MEDS: ENOXAPARIN 40 MG/0.4 ML SYR SC SCH (09:08)
[2018-11-19] MEDS: SUCRALFATE 1 GM/10 ML UDCUP PO SCH ×2 (09:08→22:02)
[2018-11-19] MEDS: SENNOSIDES/DOCUSATE SODIUM TAB PO SCH (09:08)
[2018-11-19] MEDS: predniSONE 20 MG TAB PO SCH ×2 (09:54→18:58)
--- NOTE | 2018-11-19 10:07 | SOAPPROG ---
CHARLES Progress Note Assessment/Plan: Assessment/Plan: 33 Y F s/p laparoscopy and endoscopy. Likely Crohn's. +ileal ulceration. Tolerating oral prednisone now. Pentasa started. Regular diet. On PO vanc for cdif diagnosis. Mild residual epigastric pain. Appreciate GI and medicine input. Dispo: likely tomorrow if continues to do well. S: feeling better all around. less pain, less nausea. eating well. O: alert, nad, smiling mmm ctab anteriorly rrr abd markedly softer,nt. 11/19/18 10:05 Objective: Vital Signs Temp Pulse Resp BP Pulse Ox 36.9 C 53 L 16 115/68 95 11/19/18 08:19 11/19/18 08:19 11/19/18 08:19 11/19/18 08:19 11/19/18 08:19 Laboratory Results 11/16/18 05:05 11/15/18 06:20 11/18/18 11/19/18 11/20/18 05:59 05:59 05:59 Intake Total 1290 500 Balance 1290 500 PT 17.0 SEC (12.0-15.0) H 11/10/18 06:15 INR 1.37 (0.83-1.16) H 11/10/18 06:15 ICD10 Worksheet Patient Problems: Problems Problem Status Onset Abdominal pain Acute Colitis Acute
--- NOTE | 2018-11-19 10:31 | SOAPPROG ---
SOAP Progress Note Assessment/Plan: Assessment/Plan: 1. Large ileal ulceration, with prior obstructive symptoms. Continues to do better, now on prednisone. - cont. prednisone 30 mg bid. - cont pentasa - no biologic while in-house (I discussed this with Dr. Niño, her outpt. G.I. doc) - stop sennekot If doing well tomorrow, d/c home. Upon discharge, no PPI or sucralfate (not really helping). Will need some ativan to use prn. 2. c diff positive. Some nonspecific colitis mentioned on her colonoscopy, but no pseudomembranes mentioned. Path without pseudomembranes. May be a false positive only, but agree with empiric treatment for 14 days. No retesting. 3. Epigastric pain x [address] unremarkable, as well as EGD two days prior. Nl lipase. ? dyspepsia from steroids, or a nondetected proximal small bowel ulcer. No benefit yet from sucralfate yet. Continue one more day, and if still not helping tomorrow, will d/c. 11/19/18 10:28 Subjective: cc: ileal ulceration Continues to do better. Tolerating po. One bm, passing gas. Less bloated. Epigastric pain about the same, despite sucralfate. Objective: Vital Signs Temp Pulse Resp BP Pulse Ox 36.9 C 53 L 16 115/68 95 11/19/18 08:19 11/19/18 08:19 11/19/18 08:19 11/19/18 08:19 11/19/18 08:19 Laboratory Results 11/16/18 05:05 11/15/18 06:20 11/18/18 11/19/18 11/20/18 05:59 05:59 05:59 Intake Total 1290 500 Balance 1290 500 PT 17.0 SEC (12.0-15.0) H 11/10/18 06:15 INR 1.37 (0.83-1.16) H 11/10/18 06:15 Physical Exam - Physical Exam General Appearance: WD/WN, alert, no apparent distress EENT: PERRL/EOMI, normal ENT inspection, pharynx normal, TMs normal Neck: non-tender, full range of motion, supple, normal inspection Respiratory: chest non-tender, lungs clear, normal breath sounds Cardiac/Chest: normal peripheral pulses, regular rate, rhythm Peripheral Pulses: 2+: carotid (R), carotid (L), femoral (R), femoral (L), dorsalis-pedis (R), dorsalis-pedis (L) Abdomen: normal bowel sounds, non-tender, soft Pelvic Exam: deferred Rectal: deferred Back: Normal inspection Skin: normal color, warm/dry Lymphatic: no adenopathy Extremities: normal range of motion, non-tender, normal inspection, normal capillary refill Neuro/Psych: no motor/sensory deficits, alert, normal mood/affect, oriented x 3 ICD10 Worksheet Patient Problems: Problems Problem Status Onset Abdominal pain Acute Colitis Acute
--- NOTE | 2018-11-19 14:14 | HOSPPROG ---
Hospitalist Progress Note Assessment/Plan: 33 yo F w likely crohn's here w prolonged, complex stay. Crohn's: colonoscopy results s/o crohn's s/p bx on solumedrol and mesalamine no biologic until tissue dx and improved c diff GI recommending continuing steroids and Pentasa, switched to PO Prednisone 30 mg BID on 11/18 (previously on Methylpred) D/c TPN per GI over the weekend, patient is tolerating diet well this AM cdiff: severe but improving benign abdominal exam continue po vanc, dose decreased to 125mg PO q6 hours per ID on 11/17 Stop date 11/26/18 (total 14 day course) dc flagyl 10/25 nausea nausea: refractory to phenergan and zofran trial of ativan dc flagyl 11/14 improved sepsis: septic physiology has resolved Epigastric pain: - x 2 weeks. Unclear etiology at this time - CT unremarkable, as well as EGD two days prior. Also normal lipase - ? dyspepsia from steroids, or a nondetected proximal small bowel ulcer. - GI initially order PPI PO then d/c, switched to sucralfate without any improvement - GI recommends continuing sucralfate for 1 more day then d/c tomorrow if no improvement proph: lmwh dispo: Pending clinical course, likely d/c tomorrow if abdominal pain, tolerating diet well, and passing gas/having BM Subjective: Patient reports tolerating diet well, had semi-formed BM this morning, passing gas Objective: Vital Signs Temp Pulse Resp BP Pulse Ox 36.6 C 85 16 97/61 L 95 11/19/18 12:11 11/19/18 12:11 11/19/18 12:11 11/19/18 12:11 11/19/18 12:11 Laboratory Results 11/16/18 05:05 11/15/18 06:20 11/18/18 11/19/18 11/20/18 05:59 05:59 05:59 Intake Total 1290 500 Balance 1290 500 PT 17.0 SEC (12.0-15.0) H 11/10/18 06:15 INR 1.37 (0.83-1.16) H 11/10/18 06:15 - Physical Exam Constitutional: no apparent distress Eyes: PERRL Ears, Nose, Mouth, Throat: moist mucous membranes Cardiovascular: regular rate and rhythym Respiratory: no respiratory distress Gastrointestinal: normoactive bowel sounds, tenderness (epigastric area), distension Genitourinary: no bladder fullness Skin: warm Musculoskeletal: full muscle strength Neurologic: AAOx3 Psychiatric: interacting appropriately ICD10 Worksheet Patient Problems: Problems Problem Status Onset Abdominal pain Acute Colitis Acute
[2018-11-19] MEDS: MELATONIN 3 MG TAB PO PRN (22:03)
[2018-11-19] MEDS: LORazepam 2 MG/ML INJ IVP PRN (22:03)
[2018-11-20] MEDS: VANCOMYCIN 125 MG/2.5 ML UDL PO SCH ×2 (05:40→12:49)
[2018-11-20] MEDS: LEVOTHYROXINE 25 MCG TAB PO SCH (05:40)
[2018-11-20] MEDS: MESALAMINE 250 MG PO SCH ×2 (05:40→12:49)
[2018-11-20 08:35] VITALS: BP 95/68
--- NOTE | 2018-11-20 08:50 | SOAPPROG ---
SOAP Progress Note Assessment/Plan: Assessment/plan: 33 y/o F admitted with abdominal pain/n/v. S/p ex laparoscopy with findings of small bowel dilated 2/2 fecal impaction at ileum. S/p colonoscopy and upper endoscopy. Findings consistent with Crohn's. Oral steroids started C. diff. Frequency of BMs has decreased. Still passing gas. Oral vanc. Septic shock. Unclear etiology. Resolved. TPN discontinued. Low fiber diet Dispo: Hopefully home today. S: Tolerating oral steroids. Still c/o epigastric pain, meds don't seem to help. O: Alert and oriented Afebrile VSS RRR CTAB, no increased WOB Abdomen: Soft, nontender, incision sites cdi. Still distended, but improved. 11/20/18 08:49 Objective: Vital Signs Temp Pulse Resp BP Pulse Ox 36.8 C 73 14 95/68 L 94 11/20/18 08:00 11/20/18 08:00 11/20/18 08:00 11/20/18 08:00 11/20/18 08:00 Laboratory Results 11/16/18 05:05 11/15/18 06:20 11/19/18 11/20/18 11/21/18 05:59 05:59 05:59 Intake Total 500 1500 Balance 500 1500 PT 17.0 SEC (12.0-15.0) H 11/10/18 06:15 INR 1.37 (0.83-1.16) H 11/10/18 06:15 ICD10 Worksheet Patient Problems: Problems Problem Status Onset Abdominal pain Acute Colitis Acute
[2018-11-20] MEDS: ENOXAPARIN 40 MG/0.4 ML SYR SC SCH (08:54)
[2018-11-20] MEDS: SUCRALFATE 1 GM/10 ML UDCUP PO SCH (08:54)
[2018-11-20] MEDS: predniSONE 20 MG TAB PO SCH (08:54)
--- NOTE | 2018-11-20 09:55 | SOAPPROG ---
SOAP Progress Note Assessment/Plan: Assessment/Plan: Large ileal ulceration, with prior obstructive symptoms. Continues to do better , now on prednisone. OK to d/c home. Upon d/c, recommend: - prednisone 30 mg p.o. bid, until she sees me (use 5 mg tabs, to help with tapering) - pentasa 1 g p.o. qid - a few weeks worth of ativan prn - no PPI, sucralfate needed - vanco, to finish course. No retesting. I will arrange outpt GI f/u. Thanks! 11/20/18 09:51 Subjective: cc: ileal ulceration Continues to do well, without bloating, vomiting, fever, rigors. Had another bm. Tolerating po. Epigastric pain the same. Objective: Vital Signs Temp Pulse Resp BP Pulse Ox 36.8 C 73 14 95/68 L 94 11/20/18 08:00 11/20/18 08:00 11/20/18 08:00 11/20/18 08:00 11/20/18 08:00 Laboratory Results 11/16/18 05:05 11/15/18 06:20 11/19/18 11/20/18 11/21/18 05:59 05:59 05:59 Intake Total 500 1500 Balance 500 1500 PT 17.0 SEC (12.0-15.0) H 11/10/18 06:15 INR 1.37 (0.83-1.16) H 11/10/18 06:15 Physical Exam - Physical Exam General Appearance: WD/WN, alert, no apparent distress EENT: PERRL/EOMI, normal ENT inspection, pharynx normal, TMs normal Neck: non-tender, full range of motion, supple, normal inspection Respiratory: chest non-tender, lungs clear, normal breath sounds Cardiac/Chest: normal peripheral pulses, regular rate, rhythm Peripheral Pulses: 2+: carotid (R), carotid (L), femoral (R), femoral (L), dorsalis-pedis (R), dorsalis-pedis (L) Abdomen: normal bowel sounds, non-tender, soft Pelvic Exam: deferred Rectal: deferred Back: Normal inspection Skin: normal color, warm/dry Lymphatic: no adenopathy Extremities: normal range of motion, non-tender, normal inspection, normal capillary refill Neuro/Psych: no motor/sensory deficits, alert, normal mood/affect, oriented x 3 ICD10 Worksheet Patient Problems: Problems Problem Status Onset Abdominal pain Acute Colitis Acute
--- NOTE | 2018-11-20 11:27 | HOSPPROG ---
Hospitalist Progress Note Assessment/Plan: 33 yo F w/ recent, tentative diagnosis of Crohn's disease presents with likely ileus/SBO. Crohn's: colonoscopy results s/o crohn's s/p bx on solumedrol and mesalamine no biologic until tissue dx and improved c diff GI recommending continuing steroids and Pentasa, switched to PO Prednisone 30 mg BID on 11/18 (previously on Methylpred) D/c TPN per GI over the weekend, patient is tolerating diet well this AM cdiff: severe but improving benign abdominal exam continue po vanc, dose decreased to 125mg PO q6 hours per ID on 11/17 Stop date 11/26/18 (total 14 day course) dc flagyl 10/25 nausea nausea: refractory to phenergan and zofran Ativan has helped Large ileal ulceration, with prior obstructive symptoms. Continues to do better , now on prednisone. sepsis: septic physiology has resolved Epigastric pain: - x 2 weeks. Unclear etiology at this time - CT unremarkable, as well as EGD two days prior. Also normal lipase - ? dyspepsia from steroids, or a nondetected proximal small bowel ulcer. dispo: home w family support Subjective: Ira is feeling well, has some abdominal discomfort Objective: Vital Signs Temp Pulse Resp BP Pulse Ox 36.8 C 73 14 95/68 L 94 11/20/18 08:00 11/20/18 08:00 11/20/18 08:00 11/20/18 08:00 11/20/18 08:00 Laboratory Results 11/16/18 05:05 11/15/18 06:20 11/19/18 11/20/18 11/21/18 05:59 05:59 05:59 Intake Total 500 1500 Balance 500 1500 PT 17.0 SEC (12.0-15.0) H 11/10/18 06:15 INR 1.37 (0.83-1.16) H 11/10/18 06:15 - Physical Exam Constitutional: other (thin) Respiratory: no respiratory distress Skin: warm Musculoskeletal: generalized weakness Neurologic: AAOx3 Psychiatric: interacting appropriately ICD10 Worksheet Patient Problems: Problems Problem Status Onset Abdominal pain Acute Colitis Acute
--- NOTE | 2018-11-20 12:09 | PDIAF ---
- Diagnosis Code Status: Full Code - Medication Management Discharge Medications: electronically signed and located in the Home Medication List. - Orders Isolation Type: CDIFF Isolation, Contact Isolation Diet Recommendation: other Additional Instructions: prednisone 30 mg p.o. bid, until she sees me (use 5 mg tabs, to help with tapering) - pentasa 1 g p.o. qid - a few weeks worth of ativan prn continue po vanc, dose decreased to 125mg PO q6 hours per ID on 11/17 Stop date 11/26/18 (total 14 day course) - Follow Up Care Current Providers and Referrals: Elisa Archuleta MD [Primary Care Provider] - Flex Schmidt MD [Medical Doctor] - (Follow up as needed. Call above phone number to schedule an appointment if needed.)
--- NOTE | 2018-11-20 12:13 | PCMIDPN ---
Assessment/Plan: Assessment: 33-year-old woman with C diff colitis complicating possible Crohn' s disease. She shows no ongoing evidence for active C diff colitis. Will continue vancomycin through a total of 14 day course as planned. Discussed with her symptoms that would suggest a C diff recurrence when she goes off of the vancomycin, and the uncertainty with underlying probable inflammatory bowel disease in interpreting diarrhea recurrence. She is given infectious disease clinic information to call if her diarrhea recurs to assist her in determining if empiric therapy and/or testing is warranted. 1. Severe C diff colitis, improved 2. Possible Crohn's disease; Improving with systemic steroids 3. Immunocompromised patient due to corticosteroid use systemically 4. Travel history with approximately 3 [place] in [place] Plan: 1. Continue oral vancomycin to 125mg PO q6 hours; Stop date 11/26/18 2. Pending tests: T Spot TB Flex Schmidt MD Infectious Diseases 11/20/18 12:12 Subjective: No fever or chills. She continues to have epic grass trick abdominal discomfort that is unchanged. Cramping abdominal pain with meals and prior to bowel movements that resolves with walking and moving her bowels respectively. She notes overall she still has quite a ways to go to get back to her normal self but she is improving slowly. In the past few days she has had between 1 and 4 "stringy" bowel movements with no rishi diarrhea and no constipation. Objective: Vital Signs Temp Pulse Resp BP Pulse Ox 36.8 C 73 14 95/68 L 94 11/20/18 08:00 11/20/18 08:00 11/20/18 08:00 11/20/18 08:00 11/20/18 08:00 Laboratory Results 11/16/18 05:05 11/15/18 06:20 11/19/18 11/20/18 11/21/18 05:59 05:59 05:59 Intake Total 500 1500 Balance 500 1500 ESR 11 MM/HR (0-20) 11/11/18 10:20 C-Reactive Protein 337.8 mg/L (<10.0) H 11/11/18 11:30 - Physical Exam General Appearance: no apparent distress, thin, non-toxic EENT: No scleral icterus Respiratory: No accessory muscle use Neck: full range of motion, supple Extremities: No swelling, No erythema Skin: No erythema Neuro/Psych: alert, normal mood/affect, oriented x 3, No confused - Time Spent With Patient Time Spent with Patient: greater than 25 minutes (This us with patient her father the overall risk for relapse with C diff colitis, the fact that patients with inflammatory bowel disease are not necessarily included in studies evaluating relapse, the uncertainty of detecting C diff DNA on repeat testing even if diarrhea recurs, and treatment planning if she does have a possible or probable recurrence of C diff) Time Spent with Patient: Greater than 25 minutes spent on this patients care, greater than 50% of time spent counseling, educating, and coordinating care regarding the above mentioned plan. ICD10 Worksheet Patient Problems: Problems Problem Status Onset Abdominal pain Acute Colitis Acute
--- NOTE | 2018-11-20 13:21 | GDS ---
[f rep st] DISCHARGE SUMMARY DISCHARGE DIAGNOSES: 1. Newly diagnosed Crohn disease. 2. Severe Clostridium difficile. 3. Nausea. 4. Large ileal ulceration. 5. Sepsis. 6. Epigastric pain. 7. Mastitis. CONSULTATIONS: 1. Dr. Nuno. 2. Dr. Agustin Disla. 3. Dr. Mario Alberto Mota. Briefly, the patient is a 33-year-old woman who has a complex past medical history. In July 2018, she gave to a little girl. This was complicated by retained placenta requiring uterine embolization. She has chronic problems with constipation and has had associated diarrhea. She was seen in the emergency department in late September, with abdominal pain and nausea and vomiting. At that time, she had a CT scan, which showed severe constipation including stool distention within the distal ileum. Eventually, she was admitted for further evaluation and seen by Gastroenterology. She underwent a colonoscopy with concerns of possible Crohn disease. Her terminal ileum was noted to have some erythematous and inflamed mucosal surfaces, which were biopsied. She was treated with prednisone 40 mg daily and was then discharged on September 29, with steroids and close GI followup. She also, during that hospital stay, received ceftriaxone and metronidazole. She was then readmitted on October 01, for ongoing epigastric pain with associated nausea. Her x-rays on admission showed that she had ileus versus a small-bowel obstruction. She was seen and evaluated by surgical team. An abdominal CT scan was performed, which showed a persistent small-bowel dilation affecting the jejunum and the ileum with right-sided colonic constipation. She was treated with IV steroids. She underwent a laparoscopic evaluation on November 06, with findings of dilated small bowel secondary to fecal impaction in the terminal ileum. She also had some mastitis and was treated with cefazolin. On November 10, she developed fevers with rigors with new onset diarrhea. She had a PICC line that had been placed and was getting TPN. It was noted that she had Clostridium difficile. She was treated in the ICU. There was no clear-cut etiology of her sepsis. Over time she improved. The TPN had been weaned off and she is eating well, though she still has some epigastric pain. Today, she will be discharged home with close followup with Dr. Bowman and Dr. Flex Schmidt. She is very excited about leaving the hospital and feels ready to be discharged. HOSPITAL COURSE PER PROBLEM: 1. Crohn's. This is per biopsy. She will continue on oral steroids. GI will wean these off. She also will be on Pentasa. She will not be on any type of biologic treatment until her C diff is completely resolved. 2. Clostridium difficile. This had been severe. She is having more formed stools. She will continue oral vancomycin for a 14 day treatment. 3. Nausea. This has been refractory to Phenergan and Zofran. Ativan has helped. I will give her a prescription for this. 4. Large ileal ulceration with prior obstructive symptoms. She is doing better with this. She is on prednisone. 5. Sepsis, resolved. 6. Epigastric pain, unclear. It could be dyspepsia from the steroids or nondetected small-bowel ulcer. She feels this is manageable at discharge. 7. Mastitis was treated with IV antibiotics. DISCHARGE CONDITION: Stable. Blood pressure is 95/68, heart rate is 73, respiratory rate of 14, O2 sats on room air 94%, temperature is 36.8 Celsius. MEDICATIONS AT DISCHARGE: Please see the EMR. DISCHARGE INSTRUCTIONS: 1. Prednisone 30 mg b.i.d. until she sees Dr. Bowman. He will adjust her dosing. To take with food. 2. Pentasa 1 g p.o. q.i.d. 3. Vancomycin q.i.d. until November 26. 4. Recommend she start calcium and vitamin D while on steroids. We will ask her to get an okay from GI to be on this. 5. To slowly start walking outside to get her strength. I will give her a prescription for physical therapy. 6. Low-fiber diet. 7. If she develops fever, chills, chest pain, shortness of breath, or worsening abdominal pain, return to the ER. Greater than 30 minutes discharging and coordinating the patient's care. Copy requested to: Dr. Bowman /[id number]/MODL MTDD
== END 2018-11-20 13:20 | disposition short-term general hospital (02) | DRG 356 ==
LOC: F3N 11-01 05:25 → OBSVTOIN 11-01 13:17 → F3E 11-03 14:58 → F2N 11-10 11:27 → F3E 11-16 16:10
PROVIDERS: ADMIT Student in an Organized Health Care Education/Training Program; ATTEND Student in an Organized Health Care Education/Training Program
PROC: 02HV33Z Insertion of Infusion Device into Superior Vena Cava, Percutaneous Approach (ICD-10-PCS; 2018-11-03)
PROC: 0WJG4ZZ Inspection of Peritoneal Cavity, Percutaneous Endoscopic Approach (ICD-10-PCS; principal; 2018-11-06 13:15)
PROC: 0DBF8ZX Excision of Right Large Intestine, Via Natural or Artificial Opening Endoscopic, Diagnostic (ICD-10-PCS; 2018-11-13 09:45)
PROC: 0DB98ZX Excision of Duodenum, Via Natural or Artificial Opening Endoscopic, Diagnostic (ICD-10-PCS; 2018-11-13 09:45)
PROC: 0DBB8ZX Excision of Ileum, Via Natural or Artificial Opening Endoscopic, Diagnostic (ICD-10-PCS; 2018-11-13 09:45)
PROC: 0DBA8ZX Excision of Jejunum, Via Natural or Artificial Opening Endoscopic, Diagnostic (ICD-10-PCS; 2018-11-13 09:45)
PROC: 0DB68ZX Excision of Stomach, Via Natural or Artificial Opening Endoscopic, Diagnostic (ICD-10-PCS; 2018-11-13 09:45)
PROC: 0DBG8ZX Excision of Left Large Intestine, Via Natural or Artificial Opening Endoscopic, Diagnostic (ICD-10-PCS; 2018-11-13 09:45)
PROC: 0DB58ZX Excision of Esophagus, Via Natural or Artificial Opening Endoscopic, Diagnostic (ICD-10-PCS; 2018-11-13 09:45)
DX: K50.912 Crohn's disease, unspecified, with intestinal obstruction (principal); A04.72 Enterocolitis due to Clostridium difficile, not specified as recurrent; K63.3 Ulcer of intestine; A41.9 Sepsis, unspecified organism; R65.20 Severe sepsis without septic shock; N61.0 Mastitis without abscess; N12 Tubulo-interstitial nephritis, not specified as acute or chronic; R10.13 Epigastric pain; I42.9 Cardiomyopathy, unspecified; K56.7 Ileus, unspecified; K56.41 Fecal impaction; E43 Unspecified severe protein-calorie malnutrition; R63.6 Underweight; Z68.1 Body mass index [BMI] 19.9 or less, adult; E03.9 Hypothyroidism, unspecified; I49.3 Ventricular premature depolarization
CPT/HCPCS: 82657-90; 83516-90; 83520-90; 86147-90; 86162-90; 86225-90; 86622-90; 86635-90; 86708-90; 87385-90; 96374; C1751; G0378; G0463; G0472; J0690; J0694; J1170; J1650; J1815; J1885; J2060; J2185; J2212; J2250; J2405; J2550; J2704; J2765; J2920; J2930; J2997; J3010; J3475; J3480; J7512; Q9967

== ENCOUNTER 2018-12-01 08:32 | Emergency (ER) | payer OTHER ==
[2018-12-01] MEDS ORDERED: ONDANSETRON 4 MG/2 ML VIAL IVP ONE (08:51)
[2018-12-01] MEDS ORDERED: NS 1,000 ML IV ONE (08:51)
[2018-12-01 09:18] LABS: PLATELET COUNT 232 10^3/uL (150-400)
--- NOTE | 2018-12-01 09:47 | EDPHY ---
H & P Time Seen by Provider: 12/01/18 08:49 HPI/ROS: HPI Muscle aches, joint aches, intermittent fever, malaise, upper abdominal discomfort. 33-year-old female, history of Crohn's disease and a large small-bowel ulceration. She is currently being managed by Dr. Rad Bowman of the Gastroenterology Service. She is currently on prednisone 30 mg twice daily. He also has been taking senna. She reports that Saturday she started developing intermittent cramping across her upper abdomen. She reports that on Saturday she started feeling fatigued with achiness to her muscles and joints and intermittent fevers. She reports that the cramping continued. She spoke with Rad Bowman and he felt that she should come to the emergency department to be evaluated for influenza and the possibility of worsening of her ulcer. She tells me her last solid food was on Saturday. She had a small amount of smoothie at about 7:30 a.m. This morning. She has had some associated nausea with her upper abdominal cramping episodes but otherwise no vomiting. She reports having several brown to orange colored solid stools over the last 24 hr. No bloody or melenic stool. Dr. Rad Bowman felt she should get an MR enterography study to evaluate her ulcer while she is in the emergency department as a part of her workup. The patient is also you're to have this study done. ROS: Constitutional: As above. No chills. Eyes: No discharge. No changes in vision. ENT: No sore throat. No nasal congestion or rhinorrhea. Respiratory: No cough. No shortness of breath. Cardiac: No chest pain, no palpitations. Gastrointestinal: As above, no vomiting, no diarrhea. Genitourinary: No hematuria. No dysuria or increased frequency with urination. Musculoskeletal: No back pain. No neck pain. As above. Skin: No rashes. Neurological: No headache. No focal weakness or altered sensation. Past medical history: Crohn's, PVCs, hypothyroid, gestational diabetes, sepsis , C diff. As above. Social history: Here with her . No alcohol. Nonsmoker. Physical Exam: General Appearance: Alert, she is not distressed, she appears comfortable. This patient is responding to questions appropriately and in full sentences. This patient appears well-hydrated and well-nourished. Eyes: Pupils equal and round no pallor or injection. No lid edema, erythema or injection. Respiratory: There are no retractions, lungs are clear to auscultation with good air movement bilaterally. Cardiovascular: Regular rate and rhythm. No murmur. Gastrointestinal: Abdomen is soft and without any significant tenderness on palpation, no masses, bowel sounds normal. No focal tenderness at McBurney's point. No Pringle sign. Neurological: Motor sensory function is grossly intact. Cranial nerves are normal. Gait is normal. Skin: Warm and dry, no rashes. Musculoskeletal: Neck is supple and nontender. No pain on flexion of her neck. Extremities are symmetrical. All joints range without pain or impingement. Psychiatric: No agitation. No depression. Database: EKG: Imaging: Procedures: Emergency department course: Triage vital signs reviewed. She is afebrile. She was initially mildly tachycardic in triage. On my evaluation her tachycardia has resolved her heart rate is currently in the mid 60s. She has a benign abdomen. IV was established , she was started on IV normal saline with 500 cc to 1 L to be given over the next hour. She was given 4 mg of IV Zofran for nausea. Influenza testing and standard blood work and urinalysis to be obtained. MR enterography to be obtained. The patient and her endorse. 11:05 a.m., the patient was re-evaluated, she is resting comfortably at this time. Repeat abdominal exam she is soft and without significant tenderness on palpation throughout her abdomen. Results of her blood work and urinalysis discussed with her and her . She is currently scheduled to have an MR enterography study done at 2:00 p.m.. She had a smoothie at 7:30 a.m. And she needs to be NPO for at least 6 hr for this study. She is asking to be discharged and asking if this can be done as an outpatient. 11:10 a.m., I spoke with her sandstone inspector repairer Dr. Rad Bowman. Results of her emergency department workup were discussed in detail with him. My physical exam findings were reviewed with him as well. He feels comfortable with her being discharged and having the MR enterography study done as an outpatient. He will then follow up with the results of this study and with the patient later today. I relayed this to the patient and her . She feels comfortable being discharged. We have arranged for the MR enterography study to be done as an outpatient study at 2:00 p.m. As previously scheduled. Follow- up and return to emergency department precautions were thoroughly reviewed with her . All of their questions were answered. The patient was discharged in good condition. Differential Diagnosis: The differential diagnosis on this patient includes but is not limited to influenza, viral syndrome, Crohn's exacerbation, small-bowel ulceration. This represents a partial list of diagnoses considered. These considerations are based on history, physical exam, past history, reassessment and diagnostic testing. Smoking Status: Never smoked Constitutional: Initial Vital Signs Temperature (C) 36.1 C 12/01/18 08:37 Heart Rate 104 H 12/01/18 08:37 Respiratory Rate 16 12/01/18 08:37 Blood Pressure 105/77 12/01/18 08:37 O2 Sat (%) 94 12/01/18 08:37 O2 Delivery Mode Room Air Allergies/Adverse Reactions: No Known Allergies Allergy (Verified 12/01/18 08:36) Home Medications: Medication Instructions Recorded Levothyroxine [Synthroid 25 mcg 25 mcg PO DAILY06 10/23/18 (*)] LORazepam [Ativan] 0.5 mg PO Q6 PRN #21 tablet 11/20/18 Melatonin [Melatonin 3 MG (*)] 4.5 mg PO HS PRN #0 tab 11/20/18 Mesalamine [Pentasa 250 mg (*)] 1,000 mg PO QID #60 cap.cr 11/20/18 predniSONE 30 mg PO BID #200 tab 11/20/18 Medical Decision Making - Data Points Laboratory Results: Laboratory Results 12/01/18 09:05 12/01/18 09:05 12/01/18 12/01/18 12/01/18 09:05 09:05 09:05 WBC RBC Hgb Hct MCV MCH MCHC RDW Plt Count MPV Neut % (Auto) Lymph % (Auto) Andrew % (Auto) Eos % (Auto) Baso % (Auto) Nucleat RBC Rel Count Absolute Neuts (auto) Absolute Lymphs (auto) Absolute Monos (auto) Absolute Eos (auto) Absolute Basos (auto) Absolute Nucleated RBC Immature Gran % Immature Gran # RBC/WBC/PLT Morphology Platelet Estimate Sodium 134 mEq/L L mEq/L (135-145) Potassium 4.6 mEq/L mEq/L (3.5-5.2) Chloride 99 mEq/L mEq/L (97-110) Carbon Dioxide 25 mEq/l mEq/l (22-31) Anion Gap 10 mEq/L mEq/L (6-14) BUN 12 mg/dL mg/dL (7-23) Creatinine 0.6 mg/dL mg/dL (0.6-1.0) Estimated GFR > 60 Glucose 140 mg/dL H mg/dL (70-100) Calcium 9.5 mg/dL mg/dL (8.5-10.4) Total Bilirubin 0.6 mg/dL mg/dL (0.1-1.4) Conjugated Bilirubin 0.3 mg/dL mg/dL (0.0-0.5) Unconjugated Bilirubin 0.3 mg/dL mg/dL (0.0-1.1) AST 18 IU/L IU/L (14-46) ALT 28 IU/L IU/L (9-52) Alkaline Phosphatase 70 IU/L IU/L (38-126) Total Protein 6.2 g/dL L g/dL (6.3-8.2) Albumin 3.5 g/dL g/dL (3.5-5.0) Lipase 49 IU/L IU/L (23-300) Beta HCG, Qual NEGATIVE Urine Color Urine Appearance Urine pH Ur Specific Mcintosh Urine Protein Urine Ketones Urine Blood Urine Nitrate Urine Bilirubin Urine Urobilinogen Ur Leukocyte Esterase Urine RBC Urine WBC Ur Epithelial Cells Hyaline Casts Urine Mucus Urine Glucose Nasal Influenza A PCR NEGATIVE FOR FLU A (NEGATIVE) Nasal Influenza B PCR NEGATIVE FOR FLU B (NEGATIVE) 12/01/18 12/01/18 09:05 08:36 WBC 27.99 10^3/uL H 10^3/uL (3.80-9.50) RBC 4.59 10^6/uL 10^6/uL (4.18-5.33) Hgb 14.5 g/dL g/dL (12.6-16.3) Hct 42.3 % % (38.0-47.0) MCV 92.2 fL fL (81.5-99.8) MCH 31.6 pg pg (27.9-34.1) MCHC 34.3 g/dL g/dL (32.4-36.7) RDW 13.5 % % (11.5-15.2) Plt Count 232 10^3/uL 10^3/uL (150-400) MPV 10.2 fL fL (8.7-11.7) Neut % (Auto) 89.2 % H % (39.3-74.2) Lymph % (Auto) 3.8 % L % (15.0-45.0) Andrew % (Auto) 5.6 % % (4.5-13.0) Eos % (Auto) 0.1 % L % (0.6-7.6) Baso % (Auto) 0.3 % % (0.3-1.7) Nucleat RBC Rel Count 0.0 % % (0.0-0.2) Absolute Neuts (auto) 24.97 10^3/uL H 10^3/uL (1.70-6.50) Absolute Lymphs (auto) 1.06 10^3/uL 10^3/uL (1.00-3.00) Absolute Monos (auto) 1.57 10^3/uL H 10^3/uL (0.30-0.80) Absolute Eos (auto) 0.03 10^3/uL 10^3/uL (0.03-0.40) Absolute Basos (auto) 0.08 10^3/uL 10^3/uL (0.02-0.10) Absolute Nucleated RBC 0.00 10^3/uL 10^3/uL (0-0.01) Immature Gran % 1.0 % % (0.0-1.1) Immature Gran # 0.28 10^3/uL H 10^3/uL (0.00-0.10) RBC/WBC/PLT Morphology TNP Platelet Estimate TNP Sodium Potassium Chloride Carbon Dioxide Anion Gap BUN Creatinine Estimated GFR Glucose Calcium Total Bilirubin Conjugated Bilirubin Unconjugated Bilirubin AST ALT Alkaline Phosphatase Total Protein Albumin Lipase Beta HCG, Qual Urine Color YELLOW Urine Appearance CLEAR Urine pH 6.0 (5.0-7.5) Ur Specific Mcintosh 1.014 (1.002-1.030) Urine Protein NEGATIVE (NEGATIVE) Urine Ketones NEGATIVE (NEGATIVE) Urine Blood NEGATIVE (NEGATIVE) Urine Nitrate NEGATIVE (NEGATIVE) Urine Bilirubin NEGATIVE (NEGATIVE) Urine Urobilinogen NEGATIVE EU EU (0.2-1.0) Ur Leukocyte Esterase NEGATIVE (NEGATIVE) Urine RBC NONE SEEN /hpf /hpf (0-3) Urine WBC 1-3 /hpf /hpf (0-3) Ur Epithelial Cells TRACE /lpf /lpf (NONE-1+) Hyaline Casts 1-5 /lpf /lpf (0-1) Urine Mucus TRACE /lpf /lpf (NONE-1+) Urine Glucose NEGATIVE (NEGATIVE) Nasal Influenza A PCR Nasal Influenza B PCR Medications Given: Discontinued Medications Sodium Chloride (Ns) 1,000 mls @ 0 mls/hr IV EDNOW ONE; Wide Open PRN Reason: Protocol Stop: 12/01/18 08:52 Last Admin: 12/01/18 09:06 Dose: 1,000 mls Ondansetron HCl (Zofran) 4 mg IVP EDNOW ONE Stop: 12/01/18 08:52 Last Admin: 12/01/18 09:12 Dose: Not Given Departure - Departure Disposition: Home, Routine, Self-Care Clinical Impression: Abdominal pain, Crohns disease Condition: Good Instructions: Crohn Disease (ED) Additional Instructions: Read and follow provided instructions. Follow-up with your sandstone inspector repairer, Dr. Rad Bowman, as discussed this afternoon for results of your MR enterography study. This study has been arrange for you as an outpatient at 2:00 p.m. As discussed. Continue taking her medication as prescribed after you're MR enterography study. Return to the emergency department for worsening abdominal pain, vomiting, bloody stool, fever or other serious concerns. Referrals: Rad Bowman MD, FACG [Medical Doctor] - As per Instructions
[2018-12-01 11:01] VITALS: BP 100/65
== END 2018-12-01 11:39 | disposition home or self-care (01) ==
DX: K50.00 Crohn's disease of small intestine without complications (principal); R10.10 Upper abdominal pain, unspecified; E86.9 Volume depletion, unspecified
CPT/HCPCS: 96374

== ENCOUNTER → 2018-12-01 | Outpatient (CLI) | payer OTHER ==
[~2018-12-01] MED LIST: GADOBUTROL 10 ML VIAL IVP ONE; GLUCAGON HCL 0.3 MG in SYRINGE 0.3 ML IVP ONE
== END ==
LOC: FIMAGING 13:07
PROVIDERS: ATTEND Emergency Medicine
DX: R10.13 Epigastric pain (principal); Z87.11 Personal history of peptic ulcer disease; K52.9 Noninfective gastroenteritis and colitis, unspecified
CPT/HCPCS: A9585; J1610

== ENCOUNTER 2018-12-09 01:05 | Inpatient (IN) | payer OTHER ==
[2018-12-09] MEDS ORDERED: ONDANSETRON 4 MG/2 ML VIAL IVP ONE (01:31)
[2018-12-09] MEDS ORDERED: HYDROmorphONE/DILAUDID 2 MG/ML INJ IVP ONE (01:31)
--- NOTE | 2018-12-09 01:35 | EDPHY ---
H & P Stated Complaint: ABD PAIN AND CRAMPING, DIARRHEA, C-DIFF NOW Time Seen by Provider: 12/09/18 01:14 HPI/ROS: HPI The patient presents with abdominal cramping which is intermittent lasting for about 30 sec at a time which has gotten progressively worse over the last several days. This is associated with loose yellowish stools, about 4 per day. The patient has recently been diagnosed with C diff colitis as well as Crohn' s disease. She is currently on vancomycin. She is being followed by infectious disease in Gastroenterology. She contacted her primary care physician Dr. Tayler leslie who instructed her to come to the emergency department. There is some concern for mesenteric ischemia given her ongoing symptoms.. REVIEW OF SYSTEMS 10 systems were reviewed and negative with the exception of the elements mentioned in the history of present illness. PMHx: Recent C difficile colitis which caused sepsis and prolonged hospitalization, previously on vancomycin, then on, again on vancomycin now, some concern for Crohn's disease Soc Hx: Housed, recently PHYSICAL General Appearance: Alert, no distress Eyes: Pupils equal and round no pallor or injection ENT, Mouth: Mucous membranes moist Respiratory: There are no retractions, lungs are clear to auscultation Cardiovascular: Regular rate and rhythm Gastrointestinal: Abdomen is soft and tender in the right lower quadrant with some firmness Neurological: A&O, moves all extremities Skin: Warm and dry, no rashes Musculoskeletal: Neck is supple non tender Extremities: symmetrical, full range of motion Psychiatric: Patient is oriented X 3, there is no agitation Source: Patient, Old records Exam Limitations: No limitations - Personal History Current Tetanus/Diphtheria Vaccine: Yes Current Tetanus Diphtheria and Acellular Pertussis (TDAP): Yes - Medical/Surgical History Hx Asthma: No Hx Chronic Respiratory Disease: No Hx Diabetes: No Hx Cardiac Disease: No Hx Renal Disease: No Hx Cirrhosis: No Hx Alcoholism: No Hx HIV/AIDS: No Hx Splenectomy or Spleen Trauma: No Other PMH: PVC's, thyroid, gestational diabeties, retained placenta sx, chron's , sepsis, c.diff - Social History Smoking Status: Never smoked Constitutional: Initial Vital Signs Temperature (C) 36.3 C 12/09/18 01:09 Heart Rate 85 12/09/18 01:09 Respiratory Rate 18 12/09/18 01:09 Blood Pressure 137/85 H 12/09/18 01:09 O2 Sat (%) 96 12/09/18 01:09 O2 Delivery Mode Room Air O2 (L/minute) 2 Allergies/Adverse Reactions: No Known Allergies Allergy (Verified 12/09/18 01:12) Home Medications: Medication Instructions Recorded Levothyroxine [Synthroid 25 mcg 25 mcg PO DAILY06 10/23/18 (*)] Mesalamine [Pentasa 250 mg (*)] 1,000 mg PO QID #60 cap.cr 11/20/18 predniSONE 30 mg PO BID #200 tab 11/20/18 Pantoprazole Sodium [Protonix 40mg 40 mg PO DAILY 12/09/18 (*)] Vancomycin [Vancomycin (*)] 125 mg PO Q6 12/09/18 Medical Decision Making - Diagnostics Imaging Results: CT abdomen pelvis with IV contrast demonstrates distended small-bowel loops in the lower abdomen and right lower quadrant with her which are filled with fluid and stool with thickening of the small bowel loops in the right lower quadrant involving the terminal ileum, there is also wall thickening of the cecum and ascending colon. Enteritis verses ileitis, no free air, no sign of mesenteric ischemia, interpreted by direct Radiology. Differential Diagnosis: This is a 33-year-old female, recently , currently being treated for C diff colitis with oral vancomycin, on a prednisone taper with concern for underlying Crohn's disease who presents with worsening right lower quadrant abdominal pain associated with frequent stools. Here, she is afebrile, she does have tenderness of her right lower quadrant. Patient was given IV fluids and Dilaudid for pain with improvement in her symptoms. His labs were checked and do reveal a leukocytosis though this is improved from previous testing. CT scan abdomen pelvis was performed which demonstrated inflammation of the small bowel with ileus. I consulted with Dr. Lester the patient's primary care physician. We have decided to admit the patient for ongoing pain control, GI consultation. There is concern that she may have underlying Crohn's disease with flare. - Data Points Laboratory Results: Laboratory Results 12/09/18 01:30 12/09/18 01:30 12/09/18 12/09/18 12/09/18 03:45 01:30 01:30 WBC 14.63 10^3/uL H 10^3/uL (3.80-9.50) RBC 4.42 10^6/uL 10^6/uL (4.18-5.33) Hgb 14.0 g/dL g/dL (12.6-16.3) Hct 40.8 % % (38.0-47.0) MCV 92.3 fL fL (81.5-99.8) MCH 31.7 pg pg (27.9-34.1) MCHC 34.3 g/dL g/dL (32.4-36.7) RDW 13.0 % % (11.5-15.2) Plt Count 297 10^3/uL 10^3/uL (150-400) MPV 9.5 fL fL (8.7-11.7) Neut % (Auto) Not Reported Lymph % (Auto) Not Reported Bland % (Auto) Not Reported Eos % (Auto) Not Reported Baso % (Auto) Not Reported Nucleat RBC Rel Count Not Reported Absolute Neuts (auto) Not Reported Absolute Lymphs (auto) Not Reported Absolute Monos (auto) Not Reported Absolute Eos (auto) Not Reported Absolute Basos (auto) Not Reported Absolute Nucleated RBC Not Reported Immature Gran % Not Reported Seg Neutrophils % 57.4 % % Band Neutrophils % 2.0 % % Lymphocytes % 27.7 % % Monocytes % 3.0 % % Eosinophils % 0.0 % % Basophils % 1.0 % % Metamyelocytes % 0.0 % % Myelocytes % 8.9 % % Promyelocytes % 0.0 % % Blast Cells % 0.0 % % Immature Gran # Not Reported Absolute Seg Neuts 8.40 10^3/uL H 10^3/uL (1.70-6.50) Absolute Band Neuts 0.29 10^3/uL 10^3/uL (0.00-0.70) Absolute Lymphocytes 4.05 10^3/uL H 10^3/uL (1.00-3.00) Absolute Monocytes 0.44 10^3/uL 10^3/uL (0.30-0.80) Absolute Eosinophils 0.00 10^3/uL L 10^3/uL (0.03-0.40) Absolute Basophils 0.15 10^3/uL H 10^3/uL (0.02-0.10) Absolute Metamyelocyte 0.00 10^3/mL 10^3/mL (0.00-0.00) Absolute Myelocytes 1.30 10^3/mL H 10^3/mL (0.00-0.00) Absolute Promyelocytes 0.00 10^3/uL 10^3/uL (0.00-0.00) Absolute Plasma Cells 0.00 10^3/uL 10^3/uL (0.00-0.00) Nucleated RBCs 0 /100 WBC /100 WBC (0-0) Atypical Lymphocytes 1+ H Absolute Blast Cells 0.00 10^3/uL 10^3/uL (0.00-0.00) Plasma Cells % 0.0 % % Toxic Granulation PRESENT H Platelet Estimate ADEQUATE (ADEQ) Elliptocytes 1+ H VBG Lactic Acid 1.7 mmol/L mmol/L (0.7-2.1) Sodium 139 mEq/L mEq/L (135-145) Potassium 3.6 mEq/L mEq/L (3.5-5.2) Chloride 100 mEq/L mEq/L (97-110) Carbon Dioxide 30 mEq/l mEq/l (22-31) Anion Gap 9 mEq/L mEq/L (6-14) BUN 13 mg/dL mg/dL (7-23) Creatinine 0.6 mg/dL mg/dL (0.6-1.0) Estimated GFR > 60 Glucose 90 mg/dL mg/dL (70-100) Calcium 9.5 mg/dL mg/dL (8.5-10.4) Total Bilirubin 0.2 mg/dL mg/dL (0.1-1.4) AST 17 IU/L IU/L (14-46) ALT 40 IU/L IU/L (9-52) Alkaline Phosphatase 57 IU/L IU/L (38-126) Total Protein 6.2 g/dL L g/dL (6.3-8.2) Albumin 3.7 g/dL g/dL (3.5-5.0) Medications Given: Discontinued Medications Hydromorphone HCl (Dilaudid) 0.5 mg IVP EDNOW ONE Stop: 12/09/18 01:32 Last Admin: 12/09/18 01:43 Dose: 0.5 mg Sodium Chloride (Ns) 1,000 mls @ 0 mls/hr IV EDNOW ONE; Wide Open PRN Reason: Protocol Stop: 12/09/18 01:32 Last Admin: 12/09/18 03:48 Dose: 1,000 mls Sodium Chloride (Ns) 1,000 mls @ 0 mls/hr IV EDNOW ONE; Wide Open PRN Reason: Protocol Stop: 12/09/18 03:48 Last Admin: 12/09/18 03:56 Dose: 1,000 mls Ondansetron HCl (Zofran) 4 mg IVP EDNOW ONE Stop: 12/09/18 01:32 Last Admin: 12/09/18 01:43 Dose: 4 mg Departure - Departure Disposition: [facility] Inpatient Acute Clinical Impression: Enteritis, RLQ abdominal pain, C. difficile colitis Condition: Fair
[2018-12-09] MEDS: NS 1,000 ML IV ONE ×2 (01:42→03:48)
[2018-12-09 01:44] LABS: PLATELET COUNT 297 10^3/uL (150-400)
[2018-12-09] MEDS ORDERED: IOPAMIDOL (ISOVUE 370) 100 ML BTL IV ONE (02:15)
[2018-12-09] MEDS ORDERED: NS 1,000 ML IV ONE (03:47)
[2018-12-09] MEDS ORDERED: D5W LR 1,000 ML IV SCH (07:00)
[2018-12-09] MEDS: POLYETHYLENE GLYCOL 3350 17 GM PKT PO SCH ×3 (08:46→21:36)
[2018-12-09] MEDS: predniSONE 20 MG TAB PO SCH (09:14)
[2018-12-09] MEDS: PANTOPRAZOLE SODIUM 40 MG TAB PO SCH ×2 (09:14→21:38)
[2018-12-09] MEDS: ACETAMINOPHEN 500 MG TAB PO PRN ×2 (09:34→17:20)
[2018-12-09] MEDS: VANCOMYCIN 125 MG/2.5 ML UDL PO SCH ×3 (09:35→21:38)
[2018-12-09] MEDS: MESALAMINE 250 MG PO SCH ×4 (09:35→21:38)
[2018-12-09] MEDS: POTASSIUM Cl (KCl) 20 MEQ in D5W LR 1,000 ML IV SCH (09:44)
[2018-12-09] MEDS ORDERED: VANCOMYCIN 125 MG/2.5 ML UDL PO SCH ×2 (12:00)
[2018-12-09] MEDS ORDERED: NON-FORMULARY NEW DRUG (Vancomycin 125 MG) PO SCH (12:00)
--- NOTE | 2018-12-09 12:12 | GCON ---
[f rep st] CONSULTATION DATE OF CONSULTATION: 12/09/2018 CHIEF COMPLAINT: Abdominal pain. HISTORY OF PRESENT ILLNESS: I am asked to see this patient in consultation by Dr. Jaquan Lester for a chief complaint of abdominal pain. The patient is a 33- year-old followed by Dr. Bowman. She has had issues with abdominal pain since giving earlier this year, apparently had a complicated delivery requiring uterine embolization. In September, then had a prolonged admission for abdominal pain. In October, there was a CT scan showing some thickening of the cecum and ileum. She underwent a colonoscopy that apparently showed an ulceration high in the ileum, although, biopsies were not conclusive for Crohn disease, nonetheless, she was treated with steroids. Unfortunately, patient developed C difficile with difficulty responding to vancomycin, was and placed on Dificid. Also during this period of time the patient had a followup MR enterography. According to Dr. Bowman, this was negative without evidence of persistent ulcer. Prometheus testing was not conclusive for IBD and her prednisone was tapered quickly due to ongoing C difficile. The patient was then placed on Dificid per Dr. Mota. Over the weekend, she started to develop abdominal pain, crampy in nature, and returned to the hospital. Her last bowel movement was Saturday, although, she states she was having somewhat irregular stools that were yellow and loose, but no blood in the stools. The patient states that she is feeling better overnight. ALLERGIES: No reported allergies. MEDICINES: At home include Synthroid, Pentasa, prednisone, Protonix, and vancomycin. PAST MEDICAL HISTORY: Difficult delivery September 2018, recent C difficile, ileal ulceration. FAMILY HISTORY: Dad had a history of diverticulosis. There is no IBD in the family. SOCIAL HISTORY: She does not smoke. Not actively drinking. REVIEW OF SYSTEMS: I performed a complete review of systems, which is negative except for the pertinent positives and negatives noted above in the HPI. PHYSICAL EXAM: She is currently afebrile at 36.5, BP 106/73, pulse 75. She is alert and oriented, no apparent distress. EYES: No scleral icterus. HEENT: No oral lesions. CARDIOVASCULAR: Regular rate and rhythm. CHEST: Clear to auscultation. ABDOMEN: Slightly distended. There are normal bowel sounds. Soft. There is no rebound. NEUROLOGIC: Nonfocal. SKIN: No rashes. LABORATORY DATA: White count is 14, hematocrit normal at 40. Chemistries normal. CT scan of the abdomen done 12/09/[address] angiogram is negative for any vascular abnormalities. No evidence of ischemia. There is distention of the small-bowel with stool material. There is also moderate stool within the colon. These findings are consistent with constipation or early small-bowel obstruction. No reports of ileitis or inflammation are given on the CT scan. ASSESSMENT: 1. Abdominal pain. 2. Clostridium difficile colitis. 3. Abnormal CT scan was consistent with constipation. 4. Ileal ulceration, although, workup is not consistent with inflammatory bowel disease. I think her ongoing pain at this point is most likely from constipation, which she may be developing as she is treating her Clostridium difficile colitis. This seems less likely to be Crohn's as there is no obvious inflammation. No evidence of ischemia. Discussed with Dr. Mota of Infectious Disease regarding possibility of continued Clostridium difficile colitis and may need to consider a flexible sigmoidoscopy if she does not get better. PLAN: 1. Agree with treatment of her constipation. She is going to receive MiraLAX and then a suppository. 2. We will monitor for improvement. If she does not have a bowel movement or no significant improvement, may consider flexible sigmoidoscopy at least to rule out underlying active C difficile that may require further treatment such as fecal transplant. Thank you for this consult. /[id number]/MODL MTDD
--- NOTE | 2018-12-09 14:12 | ASMTCMCOM ---
CM Note CM Note Notes: Pt is a 33 y/o female admitted for abdominal pain, enteritis, hx of c diff. This is a Dr. Lester pt. Pt will d/c independent without any needs. Pt observed walking around the unit without any trouble. No therapies ordered at this time. CM available for changes. Plan: Independent Date Signed: 12/09/2018 02:12 PM Electronically Signed By:MORTEZA Duque
[2018-12-09] MEDS ORDERED: BISACODYL 10 MG SUPP PR ONE (15:12)
--- NOTE | 2018-12-09 18:30 | PCMIDPN ---
Assessment/Plan: Assessment/Plan: * Recurrent Clostridium difficile colitis: Doubt current presentation related to ongoing/progressive C difficile colitis. CT scan most compatible with significant constipation without clinical findings to suggest related to toxic megacolon. Will continue oral vancomycin as she feels this is been more helpful than fidaxomicin. If fails to improve after constipation relieved, would then recommend flexible sigmoidoscopy or colonoscopy to repeat assessment for evidence of pseudomembranes. If present, likely course of action would be to proceed with fecal transplantation. Time spent, greater than 35 min, which greater than half was spent in education/ counseling/coordination of care related to recurrent C difficile colitis and abdominal pain as well as CT findings of significant constipation. Plan of care was reviewed with patient and Dr. Michaud today. 12/09/18 18:24 Subjective: Patient known to me from recent care including during preceding hospitalization at which point in time patient had septic shock associated with C difficile colitis. Patient also had evidence of terminal ileal ulceration with consideration for Crohn's disease although definitive diagnosis remains unclear. Was discharged on oral vancomycin and prednisone previously with improvement in symptoms. After stopping oral vancomycin, she developed recurrent diarrhea with associated crampy abdominal pain and fever. Evaluation at that time in the emergency department revealed a white blood cell count [id number] with MR enterography showing minimal residual edema and mucosal enhancement throughout the colon. She was resumed on oral vancomycin and seen in my office on 12/02/2018. Recommendation was made to transition to fidaxomicin based on recurrent disease which was undertaken on 12/04/2018. She initially felt clinically improved but on the evening of 12/06/2018 developed recurrent crampy abdominal pain with some loose stool. Abdominal pain was most prominent in the right lower quadrant and associated with nausea. She had progressive abdominal pain and nausea prompting further evaluation at [facility]. CT scan of the abdomen and pelvis was performed which showed significant stool throughout the colon felt to be compatible constipation as well as some mild distention of the small bowel with stool present. Patient did not have recurrent fever, chills or night sweats. Oral intake was maintained. Please see my green way note dated 12/02/2018 for additional details. Given the above findings, I was notified of her admission for further infectious disease follow-up. Objective: Vital Signs Temp Pulse Resp BP Pulse Ox 36.6 C 68 16 99/58 L 97 12/09/18 15:41 12/09/18 15:41 12/09/18 15:41 12/09/18 15:41 12/09/18 15:41 Laboratory Results 12/09/18 06:54 12/08/18 12/09/18 12/10/18 05:59 05:59 05:59 Intake Total 2250 750 Balance 2250 750 ESR 4 MM/HR (0-20) 12/09/18 06:54 C-Reactive Protein 5.1 mg/L (<10.0) 12/09/18 06:54 Oral vancomycin 125 mg p.o. four times daily # 1 CT abdomen and pelvis as outlined above which was reviewed and interpreted by me with Radiology today - Physical Exam General Appearance: alert, no apparent distress, thin, non-toxic EENT: No scleral icterus, No conjunctival petechiae Respiratory: lungs clear, No respiratory distress Cardiac/Chest: regular rate, rhythm Extremities: No inflammation Abdomen: distended (Mild), tender (Right lower quadrant without peritoneal signs ) Skin: No rash ICD10 Worksheet Patient Problems: Problems Problem Status Onset C. difficile colitis Acute Enteritis Acute RLQ abdominal pain Acute Abdominal pain Acute Colitis Acute
--- NOTE | 2018-12-10 00:04 | GHP ---
[f rep st] HISTORY AND PHYSICAL DATE OF ADMISSION: 12/09/2018 REASON FOR ADMISSION: Abdominal pain. HISTORY: The patient is a 33-year-old female who was recently hospitalized for protracted stay with C difficile and was given a diagnosis of Crohn disease. Subsequently, the diagnosis of Crohn disease was withdrawn, and it was felt that her problems were primarily related to C difficile and issues wi th intestinal motility. She was placed on a high dose of prednisone for the presumptive diagnosis of Crohn disease, and this is being weaned. She was having increased abdominal pain last night and pre sented to the emergency room with severe abdominal pain. CT scan primarily as a CT angiogram reveale d good blood flow to the colon, but distended terminal loops of small bowel and significant constipat ion in the large bowel. White count was elevated but was substantially reduced from a previous white count. Inflammatory markers were checked and were normal. She is being admitted for control of korey n and concern about what the underlying diagnosis might actually be. PAST MEDICAL HISTORY: Significant for delivery with a retained placenta, which was discovered someti me after delivery and she had problems with bleeding and underwent an embolization of her uterine art yareli to control the bleeding. She was placed on antibiotics during this course of time and then prese nted to the emergency room in September with abdominal pain and the appearance of constipation on her C T scan. She was ultimately admitted and was later found to have C difficile. During the course of h ospitalization, she had an episode of hypotension and shock and was admitted to the ICU, placed on fl uid tenriism and pressors. REVIEW OF SYSTEMS: She has been doing better. She has been eating better. However, she has been cutler ving some cramps and had a couple bowel movements over the weekend but had increasing cramps to the p oint of them being intolerable the day of admission. PHYSICAL EXAMINATION: GENERAL APPEARANCE: Reveals a 33-year-old pleasant female who is having some mild abdominal pain with waves of more severe abdominal pain. HEENT: The pupils were equal and reac tive to light. LUNGS: Clear. HEART: Regular rate and rhythm. ABDOMEN: Bowel sounds were present . She has mild abdominal tenderness with distention. DIAGNOSTIC DATA: CT scan is reviewed. IMPRESSION: Clostridium difficile colitis with a history of being given a diagnosis of Crohn disease although this diagnosis is strongly questioned at this point in time. She currently has significant constipation with backup into her terminal ileum. PLAN: We will place on stool softeners. Consider rectal suppository or an enema. Will observe for any worsening symptoms. /[id number]/MODL
[2018-12-10] MEDS: HYDROmorphONE/DILAUDID 1 MG/ML INJ IVP PRN ×3 (01:29→11:23)
[2018-12-10] MEDS: ONDANSETRON 4 MG/2 ML VIAL IVP PRN ×3 (01:29→12:29)
[2018-12-10] MEDS: ACETAMINOPHEN 500 MG TAB PO PRN ×3 (03:18→21:34)
[2018-12-10] MEDS: VANCOMYCIN 125 MG/2.5 ML UDL PO SCH ×4 (03:18→21:34)
[2018-12-10] MEDS: MESALAMINE 250 MG PO SCH (06:01)
[2018-12-10] MEDS: POLYETHYLENE GLYCOL 3350 17 GM PKT PO SCH ×2 (08:44→21:35)
[2018-12-10] MEDS: PANTOPRAZOLE SODIUM 40 MG TAB PO SCH ×2 (08:45→21:34)
[2018-12-10] MEDS: predniSONE 20 MG TAB PO SCH (08:45)
[2018-12-10] MEDS ORDERED: BISACODYL 10 MG SUPP PR ONE (09:08)
--- NOTE | 2018-12-10 11:08 | SOAPPROG ---
SOAP Progress Note Assessment/Plan: Assessment: Abd pain worse today Constipation only small results post supp C. diff Ilial ulcer unclear cause f/u MRE normal Plan: Discussed flex sig with ID but postpone for now as will not s=change treatment Check 2 way abd to r/o SBO Continue steroids, if increase in small bowel dilation then increase steroids (OK per ID) If no e/o SBO then consider Movantik Will try enema now Suggest capsule endoscopy as outpatient with Hawa houser 12/10/18 11:02 Subjective: CC abd pain Still with pain no results with supp, pain worse with PO laxative Objective: Vital Signs Temp Pulse Resp BP Pulse Ox 36.7 C 71 16 108/71 94 12/10/18 08:00 12/10/18 08:00 12/10/18 08:00 12/10/18 08:00 12/10/18 08:00 Laboratory Results 12/09/18 06:54 12/09/18 12/10/18 12/11/18 05:59 05:59 05:59 Intake Total 2250 1150 Output Total 2 Balance 2250 1148 Physical Exam - Physical Exam General Appearance: alert Respiratory: lungs clear Cardiac/Chest: regular rate, rhythm Abdomen: non-tender, soft (distened some increase tympany) ICD10 Worksheet Patient Problems: Problems Problem Status Onset C. difficile colitis Acute Enteritis Acute RLQ abdominal pain Acute Abdominal pain Acute Colitis Acute
[2018-12-10] MEDS: LORazepam 0.5 MG TAB PO PRN ×2 (12:29→21:47)
[2018-12-10] MEDS: SENNOSIDES/DOCUSATE SODIUM TAB PO SCH ×2 (12:29→21:34)
[2018-12-10] MEDS: POTASSIUM Cl (KCl) 20 MEQ in D5W LR 1,000 ML IV SCH ×2 (12:29→21:30)
[2018-12-10] MEDS ORDERED: GASTROVIEW 30 ML UNIT PR ONE (13:38)
[2018-12-10] MEDS: BISACODYL 5 MG EC TAB PO PRN (16:33)
--- NOTE | 2018-12-10 17:15 | PCMIDPN ---
Assessment/Plan: Assessment: 33-year-old woman with severe constipation without a clear cause. She is no longer having diarrhea which may reflect her previous diarrhea was overflow related to developing constipation. She is not having overt symptoms to suggest C diff infection uncontrolled and continuing to contribute to this hospitalization. Her T spot TB test is pending from 12/02 with another infectious etiology potentially be in Chagas disease, chronic that could manifest as neurologic dysfunction of the colon resulting in constipation; this is a remote possibility. 1. Severe constipation resulting in inability to tolerate p.o. Intake 2. C diff colitis, persistent 3. History of ileitis and proximal cecitis without clear etiology Plan: 1. Continue oral vancomycin 2. Pending test: T spot TB from 12/02, send serology for Chagas disease with a.m. Labs Flex Schmidt MD Infectious Diseases 12/10/18 17:16 Subjective: No fever or chills in the past 24-hours. Unable to tolerate oral diet. Abdomen remains distended with minimal stool output after suppository. No rash. Continues to have ways of cramping pain there severe requiring narcotic analgesia. Objective: Vital Signs Temp Pulse Resp BP Pulse Ox 36.7 C 65 16 107/74 95 12/10/18 15:32 12/10/18 15:32 12/10/18 15:32 12/10/18 15:32 12/10/18 15:32 Laboratory Results 12/09/18 06:54 12/09/18 12/10/18 12/11/18 05:59 05:59 05:59 Intake Total 2250 1150 Output Total 2 Balance 2250 1148 ESR 4 MM/HR (0-20) 12/09/18 06:54 C-Reactive Protein 5.1 mg/L (<10.0) 12/09/18 06:54 Medications Generic Name Dose Route Start Last Admin Trade Name Freq PRN Reason Stop Dose Admin Prednisone 20 mg 12/11/18 09:00 Prednisone PO 06/09/19 08:59 DAILY [facility] Vancomycin HCl 125 mg 12/09/18 09:30 12/10/18 15:30 Vancocin Oral Liquid PO 01/08/19 09:29 125 mg 0300,0900,1500,2100 [facility] Protocol Microbiology 11/09/18 22:15 Stool Gastrointestinal Tract Panel (PCR) - Final Clostridium Difficile Detected Laboratory Tests 11/16/18 12/01/18 12/01/18 05:05 09:05 09:05 WBC 14.00 H 27.99 H Absolute Neuts (auto) 24.97 H Absolute Lymphs (auto) 1.06 Absolute Seg Neuts Absolute Lymphocytes 0.84 L ESR Creatinine AST ALT C-Reactive Protein Total Protein Beta HCG, Qual NEGATIVE C. difficile Tox (PCR) TB Blood Test (T-Spot) 12/01/18 12/02/18 12/09/18 17:30 09:51 01:30 WBC 14.63 H Absolute Neuts (auto) Absolute Lymphs (auto) Absolute Seg Neuts 8.40 H Absolute Lymphocytes 4.05 H ESR Creatinine AST ALT C-Reactive Protein Total Protein Beta HCG, Qual C. difficile Tox (PCR) POSITIVE H TB Blood Test (T-Spot) Pending 12/09/18 12/09/18 12/09/18 01:30 06:54 06:54 WBC Absolute Neuts (auto) Absolute Lymphs (auto) Absolute Seg Neuts Absolute Lymphocytes ESR 4 Creatinine 0.6 AST 17 ALT 40 C-Reactive Protein 5.1 Total Protein 6.2 L Beta HCG, Qual C. difficile Tox (PCR) TB Blood Test (T-Spot) Personally reviewed the images and interpreted the following radiographs: Abdominal x-ray from 12/10 revealing stool throughout the large colon - Physical Exam General Appearance: no apparent distress, non-toxic EENT: No scleral icterus Respiratory: No respiratory distress, No accessory muscle use Neck: full range of motion, supple Extremities: No erythema Abdomen: distended, other (No stethoscope in isolation room available for auscultation) Skin: No erythema Neuro/Psych: alert, oriented x 3, depressed affect, No confused - Time Spent With Patient Time Spent with Patient: greater than 35 minutes (Discussed with patient and her was at bedside the role C diff colitis may be playing in her acute illness, potential other infectious etiologies, and goals of this admission which include pain relief, relief of severe constipation, and return home while the diagnostic evaluation is ongoing) Time Spent with Patient: Greater than 35 minutes spent on this patients care, greater than 50% of time spent counseling, educating, and coordinating care regarding the above mentioned plan. ICD10 Worksheet Patient Problems: Problems Problem Status Onset C. difficile colitis Acute Enteritis Acute RLQ abdominal pain Acute Abdominal pain Acute Colitis Acute
--- NOTE | 2018-12-10 22:12 | PDMN ---
Medical Necessity Medical necessity: Change to inpt as of 12/10/18 @ 17:52, pt meets intp criteria per MD order and Gastroenterology GRG. 33 y/o w/recent prolonged hospital stay for C diff and questionable dx of Crohn's disease, now admitted w/severe abd pain, constipation. Upgraded to inpt for persistent/increased abd pain requiring narcotic analgesia, persistent severe constipation and unable to tolerate PO intake, persistent C diff colitis. Hx of ileitis and proximal cecitis without clear etiology. 2 way abd pending to r/o SBO, cont steroids, est LOS>2MN for ongoing eval/management of above.
--- NOTE | 2018-12-10 23:13 | SOAPPROG ---
SOAP Progress Note Assessment/Plan: Assessment: Constipation in a subject with recent shock associated with C-dif. Mild response to enemal taday. No response to dulcolax pill yet. Plan: Cont miralax. Repeat dulcolax pill in AM if no bm otherwise. Consider repeat Gastrografin enema. 12/10/18 23:11 Subjective: Had increased abdominal cramps last night. No BM this morning. Some sense of distension. Objective: Vital Signs Temp Pulse Resp BP Pulse Ox 98.1 F 65 16 107/74 95 12/10/18 15:32 12/10/18 15:32 12/10/18 15:32 12/10/18 15:32 12/10/18 15:32 Bowel sounds present. Lungs clear. COR RRR. Mild abdominal tenderness in R mid to lower quadrant. ICD10 Worksheet Patient Problems: Problems Problem Status Onset C. difficile colitis Acute Enteritis Acute RLQ abdominal pain Acute Abdominal pain Acute Colitis Acute
[2018-12-11] MEDS: VANCOMYCIN 125 MG/2.5 ML UDL PO SCH ×4 (03:15→22:03)
[2018-12-11] MEDS: POTASSIUM Cl (KCl) 20 MEQ in D5W LR 1,000 ML IV SCH ×3 (04:43→22:05)
--- NOTE | 2018-12-11 08:48 | SOAPPROG ---
SOAP Progress Note Assessment/Plan: Assessment: Plan: 12/11/18 08:48 Constipation: good night, small BM this morning. Continue Miralax, senna. Will give dulcolax PO again this morning. Possibly home tonight if continues to do well. C. diff: remains on PO vancomycin 12/11/18 08:49 12/11/18 08:51 Subjective: Had a couple of small BMs this morning and no cramping during the night. Had a good night. Plans to walk a lot today. Objective: Vital Signs Temp Pulse Resp BP Pulse Ox 36.9 C 66 18 93/64 L 96 12/11/18 08:09 12/11/18 08:09 12/11/18 08:09 12/11/18 08:09 12/11/18 08:09 12/10/18 12/11/18 12/12/18 05:59 05:59 05:59 Intake Total 450 Balance 450 General: well-appearing, alert, comfortable Lungs: clear bilaterally CV: RRR, no edema Abdomen: +bowel sounds, soft ICD10 Worksheet Patient Problems: Problems Problem Status Onset C. difficile colitis Acute Enteritis Acute RLQ abdominal pain Acute Abdominal pain Acute Colitis Acute
[2018-12-11] MEDS: predniSONE 20 MG TAB PO SCH (09:09)
[2018-12-11] MEDS: POLYETHYLENE GLYCOL 3350 17 GM PKT PO SCH ×2 (09:09→22:03)
[2018-12-11] MEDS: SENNOSIDES/DOCUSATE SODIUM TAB PO SCH ×2 (09:09→22:02)
[2018-12-11] MEDS: PANTOPRAZOLE SODIUM 40 MG TAB PO SCH ×2 (09:09→22:03)
[2018-12-11] MEDS: BISACODYL 5 MG EC TAB PO PRN ×2 (09:15→22:14)
--- NOTE | 2018-12-11 10:38 | SOAPPROG ---
SOLAKEISHA Progress Note Assessment/Plan: Assessment: A Abd pain Constipation Abnl x ray of abd with small intestinal dilation given recent ilial ulcer consider partial small bowel obstruction along with constipation. Overall better. p/ Low fiver diet Low dose Miralax daily Enemas as needed Recommend outpatient capsule endoscopy with agile capsule first my office to arrange Continue steroids at current dose for now. Follow up with Dr. Bowman. 12/11/18 10:33 Subjective: cc abd pain Pt notes significant improvement with pain post enemas Objective: Vital Signs Temp Pulse Resp BP Pulse Ox 36.9 C 66 18 93/64 L 96 12/11/18 08:09 12/11/18 08:09 12/11/18 08:09 12/11/18 08:09 12/11/18 08:09 12/10/18 12/11/18 12/12/18 05:59 05:59 05:59 Intake Total 450 Balance 450 Physical Exam - Physical Exam General Appearance: alert Respiratory: normal breath sounds Cardiac/Chest: regular rate, rhythm Abdomen: non-tender, soft ICD10 Worksheet Patient Problems: Problems Problem Status Onset C. difficile colitis Acute Enteritis Acute RLQ abdominal pain Acute Abdominal pain Acute Colitis Acute
--- NOTE | 2018-12-11 13:48 | PCMIDPN ---
Assessment/Plan: Assessment/Plan: * Recurrent Clostridium difficile colitis: No recurrent diarrhea. Suspect current presentation not related to uncontrolled C difficile colitis. Patient feels significantly improved today after having 3 bowel movements with complete resolution of abdominal pain. Will plan 6 week taper of oral vancomycin beginning from this point forward. Will have my office assist with obtaining additional oral vancomycin. Advised patient to notify my office for any worsening symptoms or recurrent diarrhea. Will arrange for follow-up in our office with Dr. Schmidt in 7-10 days. Likely discharge today if continues to be clinically improved. Time spent, greater than 25 min, which greater than half was spent in education/ counseling/coordination of care related to recurrent C difficile colitis and current clinical findings. Plan of care was reviewed with patient, and Dr. Michaud today. 12/11/18 17:50 12/11/18 17:53 Subjective: Patient feels significantly improved today. Abdominal pain resolved last p.m.. Had 3 bowel movements earlier today without diarrhea. Objective: Vital Signs Temp Pulse Resp BP Pulse Ox 36.9 C 66 18 93/64 L 96 12/11/18 08:09 12/11/18 08:09 12/11/18 08:09 12/11/18 08:09 12/11/18 08:09 12/10/18 12/11/18 12/12/18 05:59 05:59 05:59 Intake Total 450 Balance 450 ESR 4 MM/HR (0-20) 12/09/18 06:54 C-Reactive Protein 5.1 mg/L (<10.0) 12/09/18 06:54 P.o. Vancomycin 125 mg orally 4 times per day - Physical Exam General Appearance: alert, no apparent distress EENT: No scleral icterus, No thrush, No dry mucous membranes Abdomen: non-tender, No distended ICD10 Worksheet Patient Problems: Problems Problem Status Onset C. difficile colitis Acute Enteritis Acute RLQ abdominal pain Acute Abdominal pain Acute Colitis Acute
[2018-12-11] MEDS: ACETAMINOPHEN 500 MG TAB PO PRN (22:02)
[2018-12-11] MEDS: LORazepam 0.5 MG TAB PO PRN (22:13)
[2018-12-12] MEDS: VANCOMYCIN 125 MG/2.5 ML UDL PO SCH ×2 (03:56→09:11)
[2018-12-12] MEDS: POTASSIUM Cl (KCl) 20 MEQ in D5W LR 1,000 ML IV SCH (04:29)
[2018-12-12] MEDS: SENNOSIDES/DOCUSATE SODIUM TAB PO SCH (09:11)
[2018-12-12] MEDS: predniSONE 20 MG TAB PO SCH (09:11)
[2018-12-12] MEDS: PANTOPRAZOLE SODIUM 40 MG TAB PO SCH (09:11)
[2018-12-12] MEDS: POLYETHYLENE GLYCOL 3350 17 GM PKT PO SCH (09:12)
[2018-12-12 09:20] VITALS: BP 112/81
--- NOTE | 2018-12-12 09:37 | ASDISCHSUM ---
Discharge Information Plan Status:Home with No Needs Medically Cleared to Leave:12/12/2018 Discharge Date:12/12/2018 CM D/C Disposition:Home, Routine, Self-Care ADT D/C Disposition:Home, Routine, Self-Care Projected Discharge Date:12/12/2018 Transportation at D/C: Discharge Delay Reason: Follow-Up Date:12/12/2018 Discharge Slot: Final Diagnosis: Placement Information Patient Contact Information Contact Name:TIERRA Relationship: Address:[address] [place] Work Phone: City:[facility] Phone: [facility]/Zip Code:[place] [address] Email: Financial Information Financial Class:pSivida Primary [facility] Primary Plan Number:[id number] Secondary Plan Desc: Secondary Plan Number: Assessment Information LACE LACE Length of stay for Answers: 1 day current admission Acuity / Level of Answers: Yes Care: Did the patient have an inpatient admission? Comorbidities - select Answers: Opioid dependence all that apply / Chronic pain Other Notes: Crohn's disease # of Emergency department Answers: 5-8 visits in the last 6 months Score: 13 Date Signed: 12/12/2018 09:35 AM Electronically Signed By:Sylvia Beaulieu RN [facility] CM Progress Note CM Note CM Note Notes: Pt is a 33 y/o female admitted for abdominal pain, enteritis, hx of c diff. This is a Dr. Lester pt. Pt will d/c independent without any needs. Pt observed walking around the unit without any trouble. No therapies ordered at this time. CM available for changes. Plan: Independent Date Signed: 12/09/2018 02:12 PM Electronically Signed By:MORTEZA Duque Case Management Discharge Plan Note Case Management Discharge Discharge Order Complete? Answers: Yes Patient to Obtain Answers: Independently Medications Discharge Comments Notes: 12/12/2018 Case Management Note Pt to discharge independent with follow up as directed. Date Signed: 12/12/2018 09:36 AM Electronically Signed By:Sylvia Beaulieu RN Intervention Information
--- NOTE | 2018-12-12 10:19 | PDIAF ---
- Medication Management Discharge Medications: electronically signed and located in the Home Medication List. - Orders Isolation Type: CDIFF Isolation, Contact Isolation Diet Texture: Regular Texture Diet - Follow Up Care Current Providers and Referrals: Jono Lester MD [Primary Care Provider] - As per Instructions Flex Schmidt MD [Medical Doctor] - 12/26/18 1:00 pm
== END 2018-12-12 11:06 | disposition home or self-care (01) | DRG 392 ==
LOC: F2W 05:55 → OBSVTOIN 12-10 17:52
PROVIDERS: ADMIT Internal Medicine; ATTEND Internal Medicine
DX: K59.00 Constipation, unspecified (principal); A04.71 Enterocolitis due to Clostridium difficile, recurrent
CPT/HCPCS: 96374; G0378; J1170; J2405; J3480; J7512; Q9967